=== PATIENT | female | born 1970 | race Caucasian/White ===

== ENCOUNTER 2022-05-21 19:54 | Inpatient (IN) ==
[2022-05-21] MEDS ORDERED: ONDANSETRON INJ 2 MG/ML 2 ML VIAL IV STA (20:05)
[2022-05-21] MEDS ORDERED: MoRPHine SULFATE 4 MG/ML 1 ML CARP\\VIAL IV STA (20:05)
--- NOTE | 2022-05-21 20:07 | Emergency Department Note ---
Impression & Plan Chest pain ADMIT ED Provider Note HPI: The patient is a 52-year-old female with history of coronary artery disease, paroxysmal atrial fibrillation, presents the emergency department with a chief complaint of chest pain. Patient states that shortly prior to arrival she developed a sensation of left arm pain, states that then radiated to the left part of her chest. Patient states that she was at rest when this occurred. She also had a sensation of palpitations that has now resolved. On arrival here to the ED the patient states her pain is improved but is still present, heart rate is within normal limits on arrival, patient is otherwise saturating well on room air and appears nontoxic on my initial evaluation ROS: - Per HPI *Outpatient medications and allergy history reviewed. *Pertinent external medical records reviewed. PE: General: Alert HEENT: Normocephalic, trachea midline Eyes: Extraocular eye movement is intact, no scleral erythema Pulmonary: Clear to auscultation bilaterally, no wheezing Cardio: Regular rate and rhythm GI: Abdomen is soft, nontender : No suprapubic tenderness MSK: No evidence of trauma or malformation of the extremities, no edema Skin: No evidence of rash Neuro: Alert, no focal deficits Psychiatric: Cooperative monitoring and evaluation advisor: - An order was placed for continuous cardiac monitoring - Patient was noted to be in sinus rhythm with a rate of 65 EKG: (As interpreted by myself): Rate: 65 Rhythm: Normal sinus rhythm Intervals: Within normal limits ST changes: No ST elevation Time: 2016 Interventions provided in ED: -IV morphine, IV Zofran, aspirin Medical Decision Making: Patient presented to the emergency department chest discomfort, states her discomfort is much improved from previous but she still does have some mild left-sided chest discomfort. EKG does not show any acute ischemic changes, t roponin is mildly elevated in the 60s, chest x-ray does not show any evidence of acute process. Patient's lab work is otherwise generally unremarkable. Patient was given aspirin as well as morphine and Zofran here in the ED for symptoms, on reassessment she states her pain is improved. Given her mildly elevated troponin in addition to history of coronary artery disease (catheterization 2 years ago at [facility] with obstructive disease that did not require stenting per patient) she will require admission for trending of troponin levels and likely cardiology evaluation in the morning. She is still an active smoker and was counseled on cessation. Patient is in agreement to the above plan, case was discussed with the on-call hospitalist, Dr. Cali, and the patient was placed for admission in stable condition for further care. Disposition discussion held by myself with: Patient Diagnosis: 1. Chest pain, acute 2. Elevated troponin 3. Tobacco use disorder Disposition: Admission Justin Jama DO Emergency Medicine Past Med/Surg History Medical History Allergic rhinitis Anxiety CAD (coronary artery disease) GERD (gastroesophageal reflux disease) Hyperlipidemia Intestinal adhesions Irritable bowel syndrome PAF (paroxysmal atrial fibrillation) Pre-diabetes Rheumatoid arthritis Vitamin D deficiency Surgical History History of ankle surgery History of appendectomy History of laparoscopy History of total abdominal hysterectomy Status post placement of implantable loop recorder (2020) Family History Mother Hx of CABG Cardiac disorder Diabetes Hypertension Myocardial infarction Peripheral vascular disease Father Emphysema of lung Brother Throat cancer Denies family history of Ovarian cancer Prostate cancer Breast cancer Colorectal cancer Social History Smoking Status: Current every day smoker Tobacco Type: Cigarettes Age Started Using Tobacco: 12; packs per day: 1; Second Hand Exposure: Yes; Hx Alcohol Use: No Hx Substance Use: No Preferred Language: Arabic Communication Ability: Effective Visual Impairment: No Limitations Hearing Ability: Normal Beliefs That Will Affect Care: None marital status: Current Living Situation Comment: lives with daughter and two kids current occupational status: employed 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 Feels Safe at Home: Yes Childhood Exposure to Second-Hand Smoke: No Diet Comment: patient has dentures caffeine: Yes (Soda x 3 per day.) during the past year weight has: increased > 10 lbs Dental Care, Regularly: No Physical Activity Frequency: Daily Seatbelt Use: always Sunscreen Use: No Allergies Allergies Allergy/AdvReac Type Severity Reaction Status Date / Time No Known Drug Allergies Allergy nkda Verified 05/21/22 21:58 Home Meds Home Medications Medication Instructions Recorded Confirmed oxycodone-acetaminophen 10 mg-325 1 tab PO Q6H PRN Pain #100 tabs 12/01/18 05/21/22 mg tablet apixaban 5 mg tablet (Eliquis) 5 mg PO BID 05/15/22 05/21/22 hydrochlorothiazide 25 mg tablet 25 mg PO DAILY 05/15/22 05/21/22 losartan 100 mg tablet 100 mg PO DAILY 05/15/22 05/21/22 melatonin 10 mg tablet 30 mg PO HS PRN Sleep 05/15/22 05/21/22 Previous Rx's Medication Instructions Recorded pantoprazole 40 mg tablet,delayed 40 mg PO DAILY #30 tabs 05/15/22 release (Protonix) atorvastatin 40 mg tablet 40 mg PO DAILY #30 tabs 05/16/22 ergocalciferol (vitamin D2) 1,250 1,250 mcg PO DAILY #12 caps 05/16/22 mcg (50,000 unit) capsule Results & Data (ED) Vital Signs Vital Signs - 24 hr 05/21/22 19:58 05/21/22 20:12 05/21/22 20:26 Temperature Source Oral Pulse Rate 73 Pulse Rate [Apical] Pulse Rhythm Regular Pulse Rhythm [Apical] Pulse Strength Normal Pulse Strength [Apical] Respiratory Rate 18 Respiratory Effort / Characteristics Non-Labored Respiratory Depth Normal Respiratory Pattern Regular Blood Pressure 167/78 H Blood Pressure [Right Arm] Blood Pressure Mean 107 Blood Pressure Mean [Right Arm] Blood Pressure Position Sitting Blood Pressure Position [Right Arm] Pulse Oximetry 96 99 97 Oxygen Delivery Method Room Air Room Air Room Air Sepsis Recent Fever Within 48 Hours No Sepsis New/Unexplained Change in Mental Status No Sepsis Action Taken by Nursing No Action Required 05/21/22 21:00 05/21/22 23:00 Temperature Source Pulse Rate Pulse Rate [Apical] 61 58 L Pulse Rhythm Pulse Rhythm [Apical] Regular Regular Pulse Strength Pulse Strength [Apical] Normal Normal Respiratory Rate 18 18 Respiratory Effort / Characteristics Non-Labored Non-Labored Respiratory Depth Normal Normal Respiratory Pattern Regular Regular Blood Pressure Blood Pressure [Right Arm] 108/58 L 118/61 Blood Pressure Mean Blood Pressure Mean [Right Arm] 74 80 Blood Pressure Position Blood Pressure Position [Right Arm] Lying Lying Pulse Oximetry 98 100 Oxygen Delivery Method Room Air Room Air Sepsis Recent Fever Within 48 Hours Sepsis New/Unexplained Change in Mental Status Sepsis Action Taken by Nursing Laboratory Data 05/21/22 20:12 05/21/22 20:12 Lab Results 05/21/22 05/21/22 05/21/22 Range/Units 20:12 20:12 20:12 WBC 9.29 (4.8-10.8) K/ul RBC 3.89 L (3.93-5.22) M/uL Hgb 11.5 L (12.0-16.0) g/dl Hct 33.7 L (34.1-44.9) % MCV 86.6 (80.0-100.0) fL MCH 29.6 (25.0-34.0) pg MCHC 34.1 (32.0-36.0) g/dL RDW Std Deviation 38.6 (36.4-46.3) fL RDW Coeff of Marco 12.1 (11.5-14.5) % Plt Count 367 (130-400) K/uL MPV 9.8 (9.4-12.3) fL Immature Gran % (Auto) 0.3 % Neut % (Auto) 61.8 % Lymph % (Auto) 32.7 % [place] % (Auto) 4.2 % Eos % (Auto) 0.4 % Baso % (Auto) 0.6 % Neut # (Auto) 5.73 (1.4-6.5) K/uL Lymph # (Auto) 3.04 (1.2-3.4) K/uL [place] # (Auto) 0.39 (0.24-0.82) K/uL Eos # (Auto) 0.04 (0-0.50) K/uL Baso # (Auto) 0.06 (0-0.2) K/uL Immature Gran # (Auto) 0.03 H (0.00-0.02) K/uL PT 11.1 (9.0-12.0) Seconds INR 1.0 (0.9-1.1) APTT 27.6 (21.0-31.0) Seconds PTT Ratio 1.0 D-Dimer 240 (0-500) ug/L FEU Sodium 135 L (136-145) mmol/L Potassium 3.8 (3.5-5.1) mmol/L Chloride 102 (98-107) mmol/L Carbon Dioxide 28 (21-32) mmol/L Anion Gap 5 (3-11) BUN 13 (6-23) mg/dl Creatinine 0.94 (0.6-1.2) mg/dl Est Cr Clr Drug Dosing 64.4 ml/min Est GFR ( Amer) 79.7 ml/min Est GFR (Non-Af Amer) 68.8 ml/min BUN/Creatinine Ratio 13.8 (10-20) Glucose 101 H (70-99(Fasting)) mg/dl Calcium 8.6 (8.5-10.1) mg/dl Total Bilirubin 0.3 (0.2-1.0) mg/dl AST 11 L (13-39) U/L ALT 5 L (7-52) U/L Alkaline Phosphatase 80 (34-104) U/L Troponin I High Sens 36.8 H (0-14) pg/ml Total Protein 6.7 (6.0-8.3) gm/dl Albumin 3.9 (3.4-5.0) gm/dl Globulin 2.8 (2.5-4.0) gm/dl Albumin/Globulin Ratio 1.4 (0.9-2) Lipase 19 (11-82) U/L SARS-CoV-2, RNA, NAAT (NEGATIVE) 05/21/22 05/21/22 Range/Units 20:14 22:10 WBC (4.8-10.8) K/ul RBC (3.93-5.22) M/uL Hgb (12.0-16.0) g/dl Hct (34.1-44.9) % MCV (80.0-100.0) fL MCH (25.0-34.0) pg MCHC (32.0-36.0) g/dL RDW Std Deviation (36.4-46.3) fL RDW Coeff of Marco (11.5-14.5) % Plt Count (130-400) K/uL MPV (9.4-12.3) fL Immature Gran % (Auto) % Neut % (Auto) % Lymph % (Auto) % [place] % (Auto) % Eos % (Auto) % Baso % (Auto) % Neut # (Auto) (1.4-6.5) K/uL Lymph # (Auto) (1.2-3.4) K/uL [place] # (Auto) (0.24-0.82) K/uL Eos # (Auto) (0-0.50) K/uL Baso # (Auto) (0-0.2) K/uL Immature Gran # (Auto) (0.00-0.02) K/uL PT (9.0-12.0) Seconds INR (0.9-1.1) APTT (21.0-31.0) Seconds PTT Ratio D-Dimer (0-500) ug/L FEU Sodium (136-145) mmol/L Potassium (3.5-5.1) mmol/L Chloride (98-107) mmol/L Carbon Dioxide (21-32) mmol/L Anion Gap (3-11) BUN (6-23) mg/dl Creatinine (0.6-1.2) mg/dl Est Cr Clr Drug Dosing ml/min Est GFR ( Amer) ml/min Est GFR (Non-Af Amer) ml/min BUN/Creatinine Ratio (10-20) Glucose (70-99(Fasting)) mg/dl Calcium (8.5-10.1) mg/dl Total Bilirubin (0.2-1.0) mg/dl AST (13-39) U/L ALT (7-52) U/L Alkaline Phosphatase (34-104) U/L Troponin I High Sens 168.7 H* D (0-14) pg/ml Total Protein (6.0-8.3) gm/dl Albumin (3.4-5.0) gm/dl Globulin (2.5-4.0) gm/dl Albumin/Globulin Ratio (0.9-2) Lipase (11-82) U/L SARS-CoV-2, RNA, NAAT NEGATIVE (NEGATIVE) Administered Medications Discontinued Medications Apixaban (Apixaban 5 Mg Tablet) 5 mg PO ONE STA Stop: 05/21/22 22:17 Last Admin: 05/21/22 22:39 Dose: 5 mg Documented By: LRS Aspirin (Aspirin Chew 324 Mg) 324 mg PO NOW STA Stop: 05/21/22 21:39 Last Admin: 05/21/22 21:43 Dose: 324 mg Documented By: LRS Morphine Sulfate (Morphine Sulfate 4 Mg/Ml 1 Ml Carp\Vial) 4 mg IV NOW STA Stop: 05/21/22 20:06 Last Admin: 05/21/22 20:18 Dose: 4 mg Documented By: LRS Ondansetron HCl (Ondansetron Inj 2 Mg/Ml 2 Ml Vial) 4 mg IV NOW STA Stop: 05/21/22 20:06 Last Admin: 05/21/22 20:18 Dose: 4 mg Documented By: TRISHS Pantoprazole Sodium (Pantoprazole 40 Mg Tab) 40 mg PO ONE STA Stop: 05/21/22 22:17 Last Admin: 05/21/22 22:39 Dose: 40 mg Documented By: MATT Imaging Data Radiologist's Impression: Chest X-Ray 05/21/22 20:05 SINGLE VIEW CHEST CLINICAL HISTORY: Atypical chest pain FINDINGS: An AP, portable, upright chest radiograph is compared to chest x-ray and chest CT dated 05/31/2021. The heart is mildly enlarged noting atherosclerotic calcification of the thoracic aorta. The pulmonary vasculature is noncongested. Mild emphysema and chronic interstitial thickening is similar to previous. The lungs and pleural spaces are clear. No pneumothorax is seen. The bony thorax is grossly intact. IMPRESSION: Cardiomegaly an mild emphysema with no acute cardiopulmonary abnormality identified. ACT 112: Negative or not required by law. Electronically signed by: Ayo Cruz M.D. 05/21/2022 8:34 PM Discharge Plan Visit Data Chief Complaint: Chest Pain Stated Complaint: rt. ARM AND CHEST PAIN (RESOLVED) ED Provider: Justin Jama Discharge Problem: Chest pain Patient Disposition: Admitted As Inpatient Forms Stand Alone Forms: [facility] Prescriptions Prescriptions: No Action atorvastatin 40 mg tablet 40 mg PO DAILY Qty: 30 2RF ergocalciferol (vitamin D2) 1,250 mcg (50,000 unit) capsule 1,250 mcg PO DAILY Qty: 12 0RF hydrochlorothiazide 25 mg tablet 25 mg PO DAILY Eliquis 5 mg tablet 5 mg PO BID losartan 100 mg tablet 100 mg PO DAILY melatonin 10 mg tablet 30 mg PO HS PRN (Reason: Sleep) pantoprazole [Protonix] 40 mg tablet,delayed release (DR/EC) 40 mg PO DAILY Qty: 30 2RF oxycodone-acetaminophen 10-325 mg tablet 1 tab PO Q6H PRN (Reason: Pain) Qty: 100 Referrals Referrals: Priscilla Obregon DO [Primary Care Provider] -
[2022-05-21 20:23] LABS: Basophils # (auto) 0.06 K/uL (0-0.2); Basophils % (auto) 0.6 %; Eosinophils # (auto) 0.04 K/uL (0-0.50); Eosinophils % (auto) 0.4 %; Hematocrit (blood only) 33.7 % (34.1-44.9); Hemoglobin 11.5 g/dl (12.0-16.0); Immature Granulocytes # (auto) 0.03 K/uL (0.00-0.02); Immature Granulocytes % (auto) 0.3 %; Lymphocytes # (auto) 3.04 K/uL (1.2-3.4); Lymphocytes % (auto) 32.7 %; Mean Corpuscular Hemoglobin 29.6 pg (25.0-34.0); Mean Corpuscular Hgb Conc 34.1 g/dL (32.0-36.0); Mean Corpuscular Volume 86.6 fL (80.0-100.0); Mean Platelet Volume 9.8 fL (9.4-12.3); Monocytes # (auto) 0.39 K/uL (0.24-0.82); Monocytes % (auto) 4.2 %; Neutrophils # (auto) 5.73 K/uL (1.4-6.5); Neutrophils % (auto) 61.8 %; Platelet Count 367 K/uL (130-400); RDW Coefficient of Variation 12.1 % (11.5-14.5); RDW Standard Deviation 38.6 fL (36.4-46.3); Red Blood Count 3.89 M/uL (3.93-5.22); White Blood Count 9.29 K/ul (4.8-10.8)
--- NOTE | 2022-05-21 20:36 | XRay Report ---
SINGLE VIEW CHEST CLINICAL HISTORY: Atypical chest pain FINDINGS: An AP, portable, upright chest radiograph is compared to chest x-ray and chest CT dated 05/13. The heart is mildly enlarged noting atherosclerotic calcification of the thoracic aorta. The pulmonary vasculature is noncongested. Mild emphysema and chronic interstitial thickening is similar to previous. The lungs and pleural spaces are clear. No pneumothorax is seen. The bony thorax is tu sly intact. IMPRESSION: Cardiomegaly an mild emphysema with no acute cardiopulmonary abnormality identified. ACT 112: Negative or not required by law. Electronically signed by: Ayo Cruz M.D. 05/21/2022 8:34 PM
[2022-05-21 20:41] LABS: D Dimer 240 ug/L FEU (0-500); Partial Thromboplastin Time 27.6 Seconds (21.0-31.0); Prothrombin Time 11.1 Seconds (9.0-12.0)
[2022-05-21 20:46] LABS: Albumin Globulin Ratio 1.4 (0.9-2); Albumin Level 3.9 gm/dl (3.4-5.0); BUN Creatinine Ratio 13.8 (10-20); Bilirubin,Total 0.3 mg/dl (0.2-1.0); Calcium 8.6 mg/dl (8.5-10.1); Creatinine Clr Calc Pharmacy 64.4 ml/min; Est GFR (African American) 79.7 ml/min; Est GFR (Non-African American) 68.8 ml/min; Globulin 2.8 gm/dl (2.5-4.0); Potassium 3.8 mmol/L (3.5-5.1); Total Protein 6.7 gm/dl (6.0-8.3)
[2022-05-21 20:51] LABS: Troponin I High Sensitivity 36.8 pg/ml (0-14)
[2022-05-21] MEDS ORDERED: ASPIRIN CHEW 324 MG PO STA (21:38)
--- NOTE | 2022-05-21 22:12 | History & Physical Report ---
Date of Service May 21, 2022 Assessment & Plan (1) NSTEMI (non-ST elevated myocardial infarction): Plan: 52yo female with a history of paroxysmal AF, HLD, CAD, RA, GERD, and FREDIS presents with a four-hour history of palpitations, central chest pain, left arm pain, and nausea. Chest pain, palpitations, nausea suspect secondary to NSTEMI Patient with a few-hour history of palpitations and CP in the setting of HLD and CAD Initial vitals notable for elevated BP but otherwise stable Labs notable for mildly-elevated hsTroponin and mild anemia Received ASA 324mg EKG: sinus rhythm with PACs, no overt ischemic change Repeat hsTroponin came back higher (36.8 --> 168.7); will monitor q2h until peak&fall Unfortunately, patient received her evening eliquis right before the hsTroponin resulted Discussed with pharmacy re: when to start heparin after recieving eliquis Per pharmacy, can start heparin gtt twelve hours after last eliquis dose (which was on 05/21 at 22:39) Will hold off on ordering timed heparin gtt and will defer decision to day team and cardiology Cardiology consult placed Nitro sublingual ordered Pain control: APAP 1000mg q8h prn mild pain Morphine 1mg q2h prn severe pain pAF Patient not in AF upon arrival; EKG: sinus rhythm with PACs, no overt ischemic change Continue home eliquis HTN: continue home losartan, HCTZ HLD, CAD: continue home statin GERD: continue home pantoprazole FEN: heart healthy diet, NPO at midnight pending possible catheterization Code status: full code DVT ppx: home eliquis Consults: cardiology Dispo: med/telemetry (2) PAF (paroxysmal atrial fibrillation): (3) Hyperlipidemia: (4) CAD (coronary artery disease): (5) GERD (gastroesophageal reflux disease): History of Present Illness Primary Care Provider: Priscilla Obregon DO 52yo female with a history of paroxysmal AF, HLD, CAD, RA, GERD, and FREDIS presents with a four-hour history of palpitations, central chest pain, left arm pain, and nausea. Symptoms started suddenly. Palpitations resolved prior to arrival to the ED; patients pain persists but has improved. Patient denies fever, chills, vision changes, SOB, edema, vomiting, dysuria, hematochezia, melena, numbness, tingling, weakness, or other symptoms. Denies recent illness and recent travel. Upon arrival, vitals were notable for elevated BP (160s/70s); no tachycardia, no tachypnea, patient afebrile, spO2 adequate on room air. Initial labs were notable for mild anemia (11.5) and mildly-elevated hsTroponin (36.8); no leukocytosis, platelets wnl, no electrolyte abnormalities, creatinine not elevated, LFTs wnl, Tbili not elevated, covid PCR negative. In the ED, patient received ASA 324mg, morphine, and zofran. EKG: sinus rhythm with PACs, no overt ischemic change CXR: cardiomegaly and mild emphysema with no acute cardiopulmonary abnormality identified Surrogate decision-maker in case of an emergency: herbie Guerrero (cell: [phone]) Allergies Allergy/AdvReac Type Severity Reaction Status Date / Time No Known Drug Allergies Allergy nkda Verified 05/21/22 21:58 Home Medications Medication Instructions Recorded Confirmed Type oxycodone-acetaminophen 10 mg-325 1 tab PO Q6H PRN Pain #100 tabs 12/01/18 05/21/22 History mg tablet apixaban 5 mg tablet (Eliquis) 5 mg PO BID 05/15/22 05/21/22 History hydrochlorothiazide 25 mg tablet 25 mg PO DAILY 05/15/22 05/21/22 History losartan 100 mg tablet 100 mg PO DAILY 05/15/22 05/21/22 History melatonin 10 mg tablet 30 mg PO HS PRN Sleep 05/15/22 05/21/22 History pantoprazole 40 mg tablet,delayed 40 mg PO DAILY #30 tabs 05/15/22 05/21/22 Rx release (Protonix) atorvastatin 40 mg tablet 40 mg PO DAILY #30 tabs 05/16/22 05/21/22 Rx ergocalciferol (vitamin D2) 1,250 1,250 mcg PO DAILY #12 caps 05/16/22 05/21/22 Rx mcg (50,000 unit) capsule Past Med/Surg History Medical History Allergic rhinitis Anxiety CAD (coronary artery disease) GERD (gastroesophageal reflux disease) Hyperlipidemia Intestinal adhesions SURGICAL LYSIS OF INTESTINAL ADHESIONS Irritable bowel syndrome PAF (paroxysmal atrial fibrillation) Pre-diabetes Rheumatoid arthritis Vitamin D deficiency Surgical History History of ankle surgery History of appendectomy History of laparoscopy History of total abdominal hysterectomy WITH REMOVAL OF BOTH OVARIES d/t cervical cancer Status post placement of implantable loop recorder (2020) Family History Mother Hx of CABG Cardiac disorder Diabetes Hypertension Myocardial infarction Peripheral vascular disease Father Emphysema of lung Brother Throat cancer Denies family history of Ovarian cancer Prostate cancer Breast cancer Colorectal cancer Social History Smoking Status: Former smoker Tobacco Type: Cigarettes Age Started Using Tobacco: 12; packs per day: 1; Cigarettes Per Day: pack and quarter per day; Second Hand Exposure: No; Do You Dip or Chew Tobacco: No; Tobacco Cessation Education Requested by Patient: No Hx Alcohol Use: No Hx Substance Use: No Preferred Language: Azeri Communication Ability: Effective Visual Impairment: No Limitations Hearing Ability: Normal Manager Alliance Required: No Beliefs That Will Affect Care: None marital status: Current Living Situation: Alone Current Living Situation Comment: lives with daughter and two kids current occupational status: employed 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 Feels Safe at Home: Yes Safety Concerns: Feels Safe At This Time Childhood Exposure to Second-Hand Smoke: No Diet Comment: patient has dentures caffeine: Yes (Soda x 3 per day.) during the past year weight has: increased > 10 lbs Dental Care, Regularly: No Physical Activity Frequency: Daily Seatbelt Use: always Sunscreen Use: No Assistive Devices: None Physical Exam Physical Exam: Constitutional: well-appearing, no acute distress CV: regular rhythm, no murmur appreciated, extremities well-perfused, no LE edema Resp: CTABL, no wheezes/rales/rhonchi appreciated, no increased work of breathing GI: soft, nondistended, nontender, BS normoactive MSK: no gross deformities appreciated Skin: warm, dry, no rash appreciated Neuro: alert, oriented, no focal neurologic deficit appreciated Results & Data Results & Data ([facility]) Vital Signs (Past 12 Hours) Vital Signs Pulse Pulse Resp BP BP Pulse Ox O2 Del Method 05/21/22 21:00 61 18 108/58 L 98 Room Air 05/21/22 20:26 97 Room Air 05/21/22 20:12 99 Room Air 05/21/22 19:58 73 18 167/78 H 96 Room Air Supervising Physician Co-Signing Physician Notes Patient seen and examined, chart reviewed, case discussed with Dr. Moran at the time of admission and I agree with the assessment and plan as above. In brief, patient is a 52yo female with history of HLP, PAF, CAD presenting with acute episode of left sided chest and arm pain. Some minor TWI, troponin elevated on arrival 36.8 -->168.7 On exam patient is resting comfortably, NAD Skin - warm, dry, intact, no rashes/lesios HEENT - NC/AT, PERRL, MMM, neck supple Heart - +S1/S2, regular, no m/r/g, no reproducible chest wall pain Lungs - CTA Abd - soft, NT/ND Ext - warm, well perfused, no clubbing/cyanosis or edema Labs and images reviewed Assessment/Plan -Admit to medical with telemetry -Trend troponin - if uptrending would initiate heparin gtt. 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
[2022-05-21] MEDS ORDERED: APIXABAN 5 MG TABLET PO STA (22:16)
[2022-05-21] MEDS ORDERED: PANTOprazole 40 MG TAB PO STA (22:16)
[2022-05-21] MEDS ORDERED: ACETAMINOPHEN 500 MG TAB PO PRN (22:54)
[2022-05-21] MEDS ORDERED: NITROGLYCERIN SL 0.4 MG/TAB TAB SL PRN (22:54)
[2022-05-21] MEDS: MoRPHine SULFATE 2 MG/ML CARP IV PRN (23:33)
[2022-05-22] MEDS: MELATONIN 3 MG TAB PO PRN (01:55)
[2022-05-22] MEDS: MoRPHine SULFATE 2 MG/ML CARP IV PRN ×4 (01:59→10:30)
[2022-05-22] MEDS ORDERED: ONDANSETRON INJ 2 MG/ML 2 ML VIAL IV PRN (02:46)
[2022-05-22 07:18] LABS: Hematocrit (blood only) 32.3 % (34.1-44.9); Mean Corpuscular Hemoglobin 29.2 pg (25.0-34.0); Mean Corpuscular Hgb Conc 34.1 g/dL (32.0-36.0); Mean Corpuscular Volume 85.7 fL (80.0-100.0); Platelet Count 333 K/uL (130-400); RDW Coefficient of Variation 12.3 % (11.5-14.5); RDW Standard Deviation 38.3 fL (36.4-46.3); Red Blood Count 3.77 M/uL (3.93-5.22); White Blood Count 7.76 K/ul (4.8-10.8)
[2022-05-22 07:46] LABS: BUN Creatinine Ratio 13.3 (10-20); Calcium 8.6 mg/dl (8.5-10.1); Est GFR (African American) 92.7 ml/min; Est GFR (Non-African American) 79.9 ml/min; Magnesium 1.4 mg/dl (1.7-2.4); Phosphorus 3.8 mg/dl (2.5-4.9); Potassium 3.7 mmol/L (3.5-5.1)
[2022-05-22] MEDS ORDERED: Heparin IV Adult Wt-Based Standard *NO* Bolus Protocol IV SCH (08:26)
[2022-05-22] MEDS ORDERED: APIXABAN 5 MG TABLET PO SCH (09:00)
[2022-05-22] MEDS: HEPARIN SODIUM/DEXTROSE 25,000 UNITS/500 ML BAG IV SCH (10:38)
--- NOTE | 2022-05-22 10:56 | XCELERA ---
[id number] \\[email or web address]\[id number]
--- NOTE | 2022-05-22 11:11 | Electrocardiogram Report ---
Test Reason : Blood Pressure : / mmHG Vent. Rate : 065 BPM Atrial Rate : 065 BPM P-R Int : 124 ms QRS Dur : 084 ms QT Int : 418 ms P-R-T Axes : 054 055 070 degrees QTc Int : 434 ms Poor data quality, interpretation may be adversely affected Sinus rhythm with Premature atrial complexes Nonspecific T wave abnormality Abnormal ECG When compared with ECG of 31-MAY-2021 10:19, No significant change Confirmed by Vignesh Wen ([id number]) on 05/22/2022 11:10:59 AM Referred By: REFERRED SELF Confirmed By:Vignesh Wen
[2022-05-22] MEDS: ATORVASTATIN 40 MG TAB PO SCH (11:19)
[2022-05-22] MEDS: LOSARTAN POTASSIUM 50 MG TAB PO SCH (11:19)
[2022-05-22] MEDS: PANTOprazole 40 MG TAB PO SCH (11:20)
[2022-05-22] MEDS: hydroCHLOROthiazide 25 MG TAB PO SCH (11:20)
[2022-05-22] MEDS: MAGNESIUM SULFATE / D5W 1 GM/100 ML BAG IV SCH ×2 (11:20→13:23)
[2022-05-22] MEDS: SODIUM CHLORIDE 0.9% 1000ML 1,000 ML IV SCH ×2 (11:21→20:27)
[2022-05-22] MEDS: ASPIRIN 81 MG ECTAB PO SCH (11:29)
[2022-05-22] MEDS ORDERED: oxyCODONE HCL IR 5 MG TAB (IMMEDIATE RELEASE) PO STA (13:00)
--- NOTE | 2022-05-22 14:02 | Hospitalist Progress Note ---
Date of Service May 22, 2022 Assessment & Plan (1) NSTEMI (non-ST elevated myocardial infarction): Plan: Asymptomatic at the time of my rounds this morning. She is on a heparin drip along with other cardiac medications. Cardiology consultation pending. Anticipate left heart catheterization tomorrow, May 23. Bobbiquis is now on hold (2) Hypomagnesemia: Plan: Parenteral replacement. Serial labs (3) PAF (paroxysmal atrial fibrillation): Plan: Currently in normal sinus rhythm. Telemetry. Radha is on hold. She is on a heparin drip (4) Hyperlipidemia: Plan: Statin therapy (5) GERD (gastroesophageal reflux disease): Plan: PPI therapy (6) CAD (coronary artery disease): Plan: Known coronary artery disease. Continue guideline directed medical management Plan Anticipate eventual discharge to home later this week Admission and Anticipated Discharge Date Admission Date: May 22, 2022 Subjective Alert and oriented. No current chest pain. She states that she takes oxycodone 3 times a day and appears to be opioid dependent. This has been restarted. Parenteral magnesium replacement ordered. She is now on a heparin drip which re places Bobbiquis. EKG reveals anterior T wave inversion. Cardiac echo fortunately reveals no regional wall motion abnormalities. Cardiology consultation requested. Anticipate cardiac catheterization tomorrowMay 23 Review of Systems Review of Systems: Constitutional-no fever or chills ENT-no blurred vision, no double vision, no epistaxis, no sore throat Respiratory-no cough, no wheezing, no shortness of breath Cardiac-no current chest pain. Denies palpitations. No syncope. GI-no nausea, vomiting, diarrhea, melena, hematochezia -no urinary retention, no urinary incontinence, no dysuria, no hematuria Musculoskeletal-no joint pain, no muscle tenderness Skin-no bruising, no rashes, no pruritus Neuro-no isolated weakness, no paresthesia, no weakness Psych-no depression, no anxiety Physical Exam Physical Exam: General-alert and oriented x3, no fevers, no chills HEENT-head atraumatic and normocephalic, pupils equal and reactive to light, extraocular muscles intact Neck-no lymphadenopathy or thyromegaly, trachea midline Chest-clear to auscultation percussion. No rales wheezing or rhonchi Cardiac-regular rate and rhythm, normal S1 and S2 Abdomen-normal bowel sounds, nontender, no hepatosplenomegaly Extremities-no cyanosis, clubbing, or edema Neuro-cranial nerves II through XII intact, motor and sensory function within normal limits, strength symmetrical , no focal deficits Psych-normal affect, normal mood Results & Data Results & Data ([facility]) Vital Signs (Past 12 Hours) Vital Signs Temp Pulse Pulse Pulse Resp BP Pulse Ox 05/22/22 12:00 36.7 C 50 L 18 95/59 L 100 05/22/22 10:00 37.0 C 77 18 153/90 H 95 05/22/22 08:00 36.6 C 51 L 18 91/52 L 100 05/22/22 07:53 49 L 05/22/22 04:04 36.6 C 56 L 20 113/71 93 05/22/22 05:09 50 L 05/22/22 04:46 05/22/22 03:00 43 L 16 103/44 L 100 05/22/22 02:54 51 L 16 102/69 95 O2 Del Method O2 Flow Rate 05/22/22 12:00 Room Air 05/22/22 10:00 Nasal Cannula 2 05/22/22 08:00 Room Air 05/22/22 07:53 05/22/22 04:04 Room Air 05/22/22 05:09 05/22/22 04:46 Room Air 05/22/22 03:00 Room Air 05/22/22 02:54 Room Air Laboratory Results 05/22/22 06:29 05/22/22 06:29 PG Care Time/CCT Total # of Minutes Spent Total Time Spent with Patient: Total time spent is greater than 50% in coordination of care (as documented) at patient's floor/unit and/or counseling patient: Coding Level of Care Code 95884 SUB INP/OBS CARE 3/50MIN Diagnoses NSTEMI (non-ST elevated myocardial infarction) I21.4 Hypomagnesemia E83.42 PAF (paroxysmal atrial fibrillation) I48.0 Hyperlipidemia E78.5 GERD (gastroesophageal reflux disease) K21.9 CAD (coronary artery disease) I25.10
--- NOTE | 2022-05-22 14:44 | Cardiology Consultation ---
Date of Consultation May 22, 2022 Assessment & Plan (1) NSTEMI (non-ST elevated myocardial infarction): Relatively recent cath without occlusive coronary disease. Most likely this does not represent an acute coronary syndrome. More likely this represents type II non-ST elevation [place] secondary to what sounds to have been tachycardia. However, definitive evaluation by coronary angiography is recommended since we do not know the degree of her "nonocclusive coronary disease". Her echocardiogram was reassuring and that it did not demonstrate any significant wall motion abnormalities. The Eliquis has been held. She has been started on a heparin drip. She will undergo coronary angiography tomorrow plus or minus PCI as indicated. She should remain on low-dose aspirin, low-dose beta-william, high intensity statin therapy, and angiotensin receptor william. We will make additional recommendations pending results of her catheterization tomorrow. (2) Hyperlipidemia: If in fact the patient does have coronary disease then she would be considered high risk. High intensity statin therapy would be continued. Target LDL reduction under the current guidelines would be greater than or equal to 50% of untreated baseline LDL. (3) PAF (paroxysmal atrial fibrillation): May have had recurrence yesterday but currently in sinus rhythm. If she does not fact have sick sinus syndrome (tachycardia/bradycardia syndrome) then we will need to determine the severity/frequency of her atrial fibrillation as well as frequency of her bradycardia events. She does have an implantable loop recorder which was placed in 01/02/2021. It is a [employer] device and we should interrogate this. I asked her to think about possible increasing of beta- william with implantable pacemaker to prevent bradycardia episodes. Regardless, she will remain on anticoagulation with Eliquis. Based on her reported history her [id number] score is 3 points. This gives her an annual CVA risk of 3.2% and a 4.6% combined risk of systemic embolization/TIA/stroke. Has bled score is 2 if you include Eliquis. Therefore, anticoagulation is favored. (4) Benign essential hypertension: HCTZ and losartan have been utilized. Blood pressure is adequately controlled at this time. Plan Cath tomorrow. Interrogate loop recorder as soon as possible. Holding Eliquis in favor of heparin for the moment. Further recommendations pending results. History of Present Illness Reason for Consultation: Chest discomfort, elevated troponin Attending Physician: Surinder Fox MD History of Present Illness 52-year-old female with a history of cardiac disease including paroxysmal atrial fibrillation, intermittent pauses of over 3 seconds which were symptomatic, and abnormal stress test. She previously had cardiac catheterization performed by Dr. Andrey Pulido for the abnormal stress test sometime after July 13, 2019. Unfortunately, I do not have that report. Its been nearly 3 years since the procedure was performed. Patient tells me at that time "I did not have anything that was bad". No stenting was performed. Patient also saw Dr. 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 A loop recorder was implanted and demonstrated paroxysmal atrial fibrillation in addition to symptomatic pauses of over [address] Hale's note suggest that she had sick sinus syndrome. They contemplated pacemaker implantation versus reduction in her beta-william. It seems that they chose to discontinue her beta-william. Patient reports onset of chest discomfort, radiated to the left arm, palpitations, squeezing, and shortness of breath. She feels that this was different than her prior palpitations. Symptoms lasted around 4 hours. She came to the emergency department where she was found to be without ischemic EKG changes and normal oxygen saturation. Her chest pain had significantly improved and she no longer had palpitations. Her troponin was slightly elevated and she was therefore admitted for further work-up and management. Unfortunately, the patient received Eliquis dose last night. She was not placed on heparin drip. She did receive nitroglycerin and morphine in the emergency department. Currently, patient states she has no further chest discomfort, palpitations, or shortness of breath. She denies exertionally related symptoms preceding this admission. Based on her recollection of her cardiac catheterization she had mild nonocclusive coronary disease. She has not had any stress testing since prior to that catheterization. She denies any syncope, near syncope, orthopnea, PND, racing heartbeat, and only complains of occasional ankle edema. She continues to smoke. She she is on pain medications. She voices no other complaints or concerns at this time. Allergies Allergy/AdvReac Type Severity Reaction Status Date / Time No Known Drug Allergies Allergy nkda Verified 05/21/22 21:58 Home Medications Medication Instructions Recorded Confirmed Type oxycodone-acetaminophen 10 mg-325 1 tab PO Q6H PRN Pain #100 tabs 12/01/18 05/21/22 History mg tablet apixaban 5 mg tablet (Eliquis) 5 mg PO BID 05/15/22 05/21/22 History hydrochlorothiazide 25 mg tablet 25 mg PO DAILY 05/15/22 05/21/22 History losartan 100 mg tablet 100 mg PO DAILY 05/15/22 05/21/22 History melatonin 10 mg tablet 30 mg PO HS PRN Sleep 05/15/22 05/21/22 History pantoprazole 40 mg tablet,delayed 40 mg PO DAILY #30 tabs 05/15/22 05/21/22 Rx release (Protonix) atorvastatin 40 mg tablet 40 mg PO DAILY #30 tabs 05/16/22 05/21/22 Rx ergocalciferol (vitamin D2) 1,250 1,250 mcg PO DAILY #12 caps 05/16/22 05/21/22 Rx mcg (50,000 unit) capsule Patient History Medical History Allergic rhinitis Anxiety CAD (coronary artery disease) GERD (gastroesophageal reflux disease) Hyperlipidemia Intestinal adhesions SURGICAL LYSIS OF INTESTINAL ADHESIONS Irritable bowel syndrome PAF (paroxysmal atrial fibrillation) Pre-diabetes Rheumatoid arthritis Vitamin D deficiency Surgical History History of ankle surgery History of appendectomy History of laparoscopy History of total abdominal hysterectomy WITH REMOVAL OF BOTH OVARIES d/t cervical cancer Status post placement of implantable loop recorder (2020) Family History Mother Hx of CABG Cardiac disorder Diabetes Hypertension Myocardial infarction Peripheral vascular disease Father Emphysema of lung Brother Throat cancer Denies family history of Ovarian cancer Prostate cancer Breast cancer Colorectal cancer Social History Smoking Status: Former smoker Tobacco Type: Cigarettes Age Started Using Tobacco: 12; packs per day: 1; Cigarettes Per Day: pack and quarter per day; Second Hand Exposure: No; Do You Dip or Chew Tobacco: No; Tobacco Cessation Education Requested by Patient: No Hx Alcohol Use: No Hx Substance Use: No Preferred Language: Bolivian Communication Ability: Effective Visual Impairment: No Limitations Hearing Ability: Normal 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: No Beliefs That Will Affect Care: None marital status: Current Living Situation: Alone Current Living Situation Comment: lives with daughter and two kids current occupational status: employed 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 Sclera are anicteric. ENMT: Oral mucosa is pink moist and intact. Neck: No JVD Respiratory: Clear to auscultation bilaterally. No wheezing, rhonchi, or rales. Cardiovascular: Regular rate and rhythm. No gallops, rubs, or murmurs. No edema. Gastrointestinal (Abdomen): Nontender. Normal active bowel sounds. Musculoskeletal: no cyanosis or clubbing, extremities motor strength 5/5 (2+ distal pulses) Neurologic: Cognition is intact. Speech is fluent. No focal deficits. No tremor. Psychiatric: A+Ox3, euthymic affect Results & Data ([facility]) Vital Signs (Past 12 Hours) Vital Signs Temp Pulse Pulse Pulse Resp BP Pulse Ox 05/22/22 12:00 36.7 C 50 L 18 95/59 L 100 05/22/22 10:00 37.0 C 77 18 153/90 H 95 05/22/22 08:00 36.6 C 51 L 18 91/52 L 100 05/22/22 07:53 49 L 05/22/22 04:04 36.6 C 56 L 20 113/71 93 05/22/22 05:09 50 L 05/22/22 04:46 05/22/22 03:00 43 L 16 103/44 L 100 05/22/22 02:54 51 L 16 102/69 95 O2 Del Method O2 Flow Rate 05/22/22 12:00 Room Air 05/22/22 10:00 Nasal Cannula 2 05/22/22 08:00 Room Air 05/22/22 07:53 05/22/22 04:04 Room Air 05/22/22 05:09 05/22/22 04:46 Room Air 05/22/22 03:00 Room Air 05/22/22 02:54 Room Air PG Care Time/CCT Total # of Minutes Spent Total Time Spent with Patient: Total time spent is greater than 50% in coordination of care (as documented) at patient's floor/unit and/or counseling patient: Coding Level of Care Code New Pt INP/OBS CONSULT LVL 5, 80 MIN Patient Type New Diagnoses NSTEMI (non-ST elevated myocardial infarction) I21.4 Hyperlipidemia E78.5 PAF (paroxysmal atrial fibrillation) I48.0 Benign essential hypertension I10
--- NOTE | 2022-05-22 15:47 | Electrocardiogram Report ---
Test Reason : Blood Pressure : / mmHG Vent. Rate : 057 BPM Atrial Rate : 057 BPM P-R Int : 126 ms QRS Dur : 090 ms QT Int : 436 ms P-R-T Axes : 067 051 069 degrees QTc Int : 424 ms Sinus bradycardia T wave abnormality, consider anterior ischemia Abnormal ECG When compared with ECG of 21-MAY-2022 20:17, Premature atrial complexes are no longer Present T wave inversion more evident in Anterior leads Confirmed by Vignesh Wen ([id number]) on 05/22/2022 3:47:13 PM Referred By: REFERRED SELF Confirmed By:Vignesh Wen
[2022-05-22 17:04] LABS: Partial Thromboplastin Ratio 1.6
[2022-05-22] MEDS: oxyCODONE HCL IR 5 MG TAB (IMMEDIATE RELEASE) PO SCH ×2 (18:15→20:25)
--- NOTE | 2022-05-22 20:47 | Billing Data ---
Date of Service May 22, 2022 Coding Level of Care Code 36872 INT INP/OBS CARE
[2022-05-22] MEDS: LORazepam 2 MG/1 ML VIAL IV STA ×2 (22:12→22:21)
[2022-05-22 23:51] LABS: Partial Thromboplastin Ratio 1.6; Partial Thromboplastin Time 44.4 Seconds (21.0-31.0)
[2022-05-23] MEDS: SODIUM CHLORIDE 0.9% 1000ML 1,000 ML IV SCH ×2 (06:16→14:54)
[2022-05-23 06:54] LABS: Basophils # (auto) 0.05 K/uL (0-0.2); Basophils % (auto) 0.6 %; Eosinophils # (auto) 0.09 K/uL (0-0.50); Hematocrit (blood only) 33.5 % (34.1-44.9); Hemoglobin 11.3 g/dl (12.0-16.0); Immature Granulocytes # (auto) 0.03 K/uL (0.00-0.02); Immature Granulocytes % (auto) 0.3 %; Lymphocytes # (auto) 3.84 K/uL (1.2-3.4); Lymphocytes % (auto) 43.6 %; Mean Corpuscular Hgb Conc 33.7 g/dL (32.0-36.0); Mean Corpuscular Volume 86.1 fL (80.0-100.0); Monocytes # (auto) 0.47 K/uL (0.24-0.82); Monocytes % (auto) 5.3 %; Neutrophils # (auto) 4.32 K/uL (1.4-6.5); Neutrophils % (auto) 49.2 %; Platelet Count 338 K/uL (130-400); RDW Coefficient of Variation 12.4 % (11.5-14.5); RDW Standard Deviation 38.8 fL (36.4-46.3); Red Blood Count 3.89 M/uL (3.93-5.22)
[2022-05-23 07:31] LABS: Partial Thromboplastin Ratio 1.5; Partial Thromboplastin Time 39.9 Seconds (21.0-31.0)
[2022-05-23] MEDS: oxyCODONE HCL IR 5 MG TAB (IMMEDIATE RELEASE) PO SCH ×3 (07:57→21:16)
[2022-05-23] MEDS: hydroCHLOROthiazide 25 MG TAB PO SCH (07:58)
[2022-05-23] MEDS: ASPIRIN 81 MG ECTAB PO SCH (07:58)
[2022-05-23] MEDS: PANTOprazole 40 MG TAB PO SCH (07:58)
[2022-05-23] MEDS: ATORVASTATIN 40 MG TAB PO SCH (07:58)
[2022-05-23] MEDS: LOSARTAN POTASSIUM 50 MG TAB PO SCH (07:58)
--- NOTE | 2022-05-23 08:46 | Hospitalist Progress Note ---
Date of Service May 23, 2022 Assessment & Plan (1) NSTEMI (non-ST elevated myocardial infarction): Plan: Cardiology felt was likely type II non-ST elevation [place] secondary to possible tachycardia. The Eliquis was held and patient started on a heparin drip. Patient had heart cath today that was normal epicardial coronary arteries and normal LV function with only mild mitral regurg Cardiology recommended that patient should remain on low-dose aspirin, low-dose beta-william, high intensity statin therapy, and angiotensin receptor william and stated further recommendations to follow after cardiac cath. Heparin stopped and Eliquis to restart tonight. (2) Hyperlipidemia: Plan: Continue Lipitor 40mg (3) PAF (paroxysmal atrial fibrillation): Plan: Patient has an implantable loop recorder (placed 01/02/21) Cardiology planning on interrogation of this device. Awaiting [facility] [employer] rep (4) Benign essential hypertension: Plan: HCTZ and losartan have been utilized. Blood pressure is adequately controlled at this time - 108/72 (5) GERD (gastroesophageal reflux disease): Plan: Continue PPI therapy (6) Hypomagnesemia: Plan: Parenteral replacement.Normal now at 1.7 (7) Constipation: Plan: Added Colace one BID Discussed increasing po water intake and fiber supplement Discussed due to have a follow up colonoscopy (constipation and occasional LUQ abdominal pain - no pain currently) Patient to follow up with GI as outpatient Admission and Anticipated Discharge Date Admission Date: May 22, 2022 Subjective Patient is awake in bed seen after having cardiac cath. She denies any chest pain, SOB, cough or pain. She asks for something for her constipation. She states she sometimes takes colace at home. She tells me that she sometimes has LUQ abdominal pain and will feel a lump that is painful and then goes away. She denies any pain or lumps currently. Review of Systems Constitutional: no fever, no chills and no sweats Ear, Nose, Mouth, Throat: no dizziness, no nasal discharge and no post nasal drip Respiratory: no cough, no chest congestion, no dyspnea and no dyspnea on exertion Cardiovascular: no chest pain, no dyspnea, no edema and no calf pain Gastrointestinal: + abdominal pain and + constipation; no early satiety, no nausea, no diarrhea/loose stools and no blood in stools Genitourinary: no dysuria, no urinary hesitancy and no hematuria Integumentary: no rash, no lesions and no new lesions Neurologic: no falls, no tingling, no paresthesia and no headache(s) Endocrine: no polydipsia, no polyphagia and no polyuria Hematologic / Lymphatic: no easy bleeding, no easy bruising and no night sweats Allergy / Immunological: no cough, no dyspnea and no rash + sneezing Physical Exam Constitutional: WD/WN, vitals as above ENMT: external ear and nose normal, oropharynx normal Neck: trachea midline, no thyromegaly Respiratory: normal respiratory effort, lungs clear to auscultation Cardiovascular: RRR, no murmur, no edema Gastrointestinal (Abdomen): normal bowel sounds, soft, nontender, no hepatosplenomegaly Abdomen is soft and nontender she does have some mild pain with tensing the abdominal muscle wall, no obvious hernia palpated. +Carnett's sign Psychiatric: A+Ox3, euthymic affect Results & Data Results & Data ([facility]) Vital Signs (Past 12 Hours) Vital Signs Temp Pulse Pulse Resp BP Pulse Ox O2 Del Method 05/23/22 07:53 36.8 C 60 18 114/61 96 Room Air 05/23/22 07:28 66 05/23/22 03:15 36.8 C 66 20 113/67 97 Room Air 05/22/22 22:05 60 05/22/22 23:36 36.8 C 61 20 97/58 L 94 Room Air Laboratory Results Abnormal lab results 05/22/22 05/22/22 05/23/22 Range/Units 16:38 23:12 06:23 RBC 3.89 L (3.93-5.22) M/uL Hgb 11.3 L (12.0-16.0) g/dl Hct 33.5 L (34.1-44.9) % Lymph # (Auto) 3.84 H (1.2-3.4) K/uL Immature Gran # (Auto) 0.03 H (0.00-0.02) K/uL APTT 43.0 H 44.4 H (21.0-31.0) Seconds 05/23/22 Range/Units 06:23 RBC (3.93-5.22) M/uL Hgb (12.0-16.0) g/dl Hct (34.1-44.9) % Lymph # (Auto) (1.2-3.4) K/uL Immature Gran # (Auto) (0.00-0.02) K/uL APTT 39.9 H (21.0-31.0) Seconds Diagnostic Findings Cardiac Cath Summary: 1. Normal epicardial coronary arteries 2. Normal LV function 3. Mild to moderate mitral regurgitation PG Care Time/CCT Total # of Minutes Spent Total Time Spent with Patient: Total time spent is greater than 50% in coordination of care (as documented) at patient's floor/unit and/or counseling patient: Coding Level of Care Code 69676 SUB INP/OBS CARE 2/35MIN Diagnoses NSTEMI (non-ST elevated myocardial infarction) I21.4 Hyperlipidemia E78.5 PAF (paroxysmal atrial fibrillation) I48.0 Benign essential hypertension I10 GERD (gastroesophageal reflux disease) K21.9 Hypomagnesemia E83.42 Constipation K59.00
[2022-05-23] MEDS ORDERED: fentaNYL citrate 100 MCG/2 ML VIAL ONE (09:16)
[2022-05-23] MEDS ORDERED: MIDAZOLAM HCL 1 MG/ML 2ML VIAL ONE ×2 (09:16→09:46)
[2022-05-23] MEDS ORDERED: niCARdipine HCL INJ 2.5 MG/ML 10 ML AMP ONE (09:16)
[2022-05-23] MEDS ORDERED: HEPARIN (PORCINE) 1000 UNIT/ML 10 ML (CATH LAB USE ONLY) ONE (09:16)
[2022-05-23] MEDS ORDERED: NITROGLYCERIN/D5W 100MCG/ML 20ML SYR ONE (09:17)
[2022-05-23 09:20] LABS: BUN Creatinine Ratio 17.9 (10-20); Calcium 8.9 mg/dl (8.5-10.1); Creatinine Clr Calc Pharmacy 63.8 ml/min; Est GFR (African American) 78.7 ml/min; Est GFR (Non-African American) 67.9 ml/min; Magnesium 1.7 mg/dl (1.7-2.4); Potassium 4.1 mmol/L (3.5-5.1)
[2022-05-23] MEDS ORDERED: diphenhydrAMINE 50 MG/ML VIAL ONE (09:43)
--- NOTE | 2022-05-23 10:27 | Pre Anesthesia Assessment ---
Date of Service May 23, 2022 Pre Sedation Assessment Vital Signs Temp Pulse Pulse Resp BP Pulse Ox O2 Del Method 05/23/22 10:10 49 L 16 94/59 L Room Air 05/23/22 09:00 Room Air 05/23/22 07:53 36.8 C 60 18 114/61 96 Room Air 05/23/22 07:28 66 05/23/22 03:15 36.8 C 66 20 113/67 97 Room Air 05/22/22 22:05 60 05/22/22 23:36 36.8 C 61 20 97/58 L 94 Room Air 05/22/22 18:00 Room Air 05/22/22 19:57 37.0 C 87 20 113/63 95 Room Air 05/22/22 16:08 54 L 05/22/22 15:54 36.8 C 57 L 18 89/45 L 95 Room Air 05/22/22 12:00 36.7 C 50 L 18 95/59 L 100 Room Air Cardiovascular RRR, no murmur, no edema Respiratory normal respiratory effort, lungs clear to auscultation Pre-Sedation Airway Assessment Smoking Status: Former smoker Hx Sleep Apnea: No Short, Thick Neck: No Thyromental Distance: > or= 3.5 Finger Breadths Oral Cavity: + WNL Mallampati Class: II ASA: ASA2 NPO Status Date of Last Intake of Fluids: 05/23/22 Time of Last Intake of Fluids: 07:00 Date of Last Intake of Solid Food: 05/22/22 Time of Last Intake of Solid Foods: 18:00 Notes The planned sedation has been discussed with the patient. Informed Consent was obtained. I have identified the patient, determined the appropriateness of sedation and have assessed the patient immediately prior to the procedure. All medicine(s) and interventions are by my order.
--- NOTE | 2022-05-23 10:28 | Post Anesthesia Assessment ---
Date of Service May 23, 2022 Post Sedation Assessment Vital Signs Temp Pulse Pulse Resp BP Pulse Ox O2 Del Method 05/23/22 10:10 49 L 16 94/59 L Room Air 05/23/22 09:00 Room Air 05/23/22 07:53 36.8 C 60 18 114/61 96 Room Air 05/23/22 07:28 66 05/23/22 03:15 36.8 C 66 20 113/67 97 Room Air 05/22/22 22:05 60 05/22/22 23:36 36.8 C 61 20 97/58 L 94 Room Air 05/22/22 18:00 Room Air 05/22/22 19:57 37.0 C 87 20 113/63 95 Room Air 05/22/22 16:08 54 L 05/22/22 15:54 36.8 C 57 L 18 89/45 L 95 Room Air 05/22/22 12:00 36.7 C 50 L 18 95/59 L 100 Room Air Recovery Score Activity: Moves 4 extremities Respiration: Deep Breath/Cough Circulation: +/-20% PreAnes Value Consciousness: Fully Awake Oxygen Saturation: > 92% On Room Air Post Anesthesia Score: 10 Discharge Sedation Level of Care: Phase I Post Sedation Plan On clinical assessment, the patient appears to have tolerated the sedation without complications. Patient is recovering as anticipated. Patient will continue to be monitored by nursing and may be discharged when sedation discharge criteria are met per below protocol. Upon Completions of procedure up to 15 minutes continue every 5 minute vital signs and the P.A.R. score; then discharge to a Phase I or Fast Track to Phase II per the following guidelines: * Discharge Patient to appropriate Phase II area if PAR is 8 or greater or return to pre- procedure baseline. The post - procedure orders will be as directed. * If PAR score is less than 8 or not return to pre-procedure baseline then patient will follow Phase I monitoring till PAR is reached for Phase II. The Phase I may be done in procedure room or may call to secure a Phase I area. * If naloxone or flumazenil are used for reversal, hold in Phase I for continued monitoring from when last reversal dose was given for a minimum of 60 minutes or longer pending the nurse and/or physician discretion of patient condition before discharge to Phase II. Please call the Sedation Physician to re-evaluate and complete post-note for discharge to Phase II area. Do NOT discharge from procedure sedation or Phase 1 until post- sedation evaluation note is complete by procedure /sedation MD Sedation Discharge Instructions to be given to the patient at discharge to home. [facility] [place] Procedure Codes (Charges) Indication for Procedure Indication for procedure: NSTEMI Sedation/Anesthesia Procedure 1: Sedation/Anesthesia: 46683 Mod Sedation by the same physician;Init15 Min Child Age 5 & Up Total Sedation Time (minutes): 13
--- NOTE | 2022-05-23 10:33 | Cardiac Catheterization ---
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 Cardiac Status Clinical evaluation leading to the procedure CAD Presenation: Non STEMI Anginal Classification: CCS IV Heart Failure: No Cardiogenic Shock within 24 Hours: No Cardiac Arrest within 24 Hours: No Imaging Studies Past 6 Months: No Stress Studies Past 6 Months: No Coronary Anatomy Dominant: Right Left Main (% Stenosis): Normal LAD (% Stenosis): Normal D1 (% Stenosis): Normal D2 (% Stenosis): Normal Circumflex (% Stenosis): Normal OM1 (% Stenosis): Normal OM2 (% Stenosis): Normal L PL1 (% Stenosis): Normal RCA (% Stenosis): Normal R PDA (% Stenosis): Normal R PL1 (% Stenosis): Normal Left Ventricular Angiography EF (%): 55 to 60% Mitral Regurgitation: 1+ (1-2+) Diagnostic Physicians Name: Morgan Lopez MD, PhD Closure Device Percutaneous Entry Location: Radial Closure Device: Radial Band Recommendations: Medical Therapy and/or Counseling Cardiac Cath Procedure Full Procedure Date May 23, 2022 Pre-Procedure Diagnosis Pre-Procedure Diagnosis: Non STEMI AUC Score AUC Score: 07 Post-Procedure Diagnosis Post-Procedure Diagnosis: Normal Coronary Arteries Procedure(s) Performed Procedure(s) Performed: Coronary Angiography, Left Heart Cath and LV Angiography [employer] Morgan Lopez MD, PhD Estimated Blood Loss Estimated Blood Loss: 2 ml Medication(s) Medication(s): Diphenhydramine, Fentanyl, Heparin, Lidocaine 1%, Nicardipine, Nitroglycerin and Versed Summary of Findings Brief description: Patient was brought to the cardiac catheterization suite where she was shaved an d prepped in a sterile fashion. Sedated using IV Versed, fentanyl, and Benadryl. Soft tissues of the right wrist were anesthetized using 2 mL of 1% Xylocaine. The right radial artery was accessed using a modified Seldinger technique and a 6 [place] radial artery glide sheath was placed. Patient was provided anticoagulation with IV heparin and antispasmodics including verapamil and nitroglycerin. All catheters were advanced and exchanged over a 0.035 J-tip wire. Left coronary angiography in orthogonal views with a 5 [place] Mcclure 4 diagnostic catheter. Right coronary angiography in orthogonal views with a 5 [place] Mcclure 4 diagnostic catheter. Left heart cath and left ventriculogram were performed with a 5 [place] pigtail catheter. Diagnostic catheters were removed. Radial artery sheath was removed. Hemostasis was obtained using a TR band. Patient remained hemodynamically stable and asymptomatic. She was returned to the recovery area. This ended the case. Coronary angiography and ventriculogram findings: LMT: Large-caliber vessel bifurcating into the LAD and left circumflex. No angiographically evident disease. LAD: Large caliber and transapical. Gives several large septal branches. Medium caliber first diagonal and medium to large caliber branching second diagonal. No more than scattered luminal irregularities. LCx: Large caliber and nondominant. Provides a large caliber branching OM1. Then a small caliber OM 2 terminates distally as a large caliber long posterior lateral branch. There is no angiographically significant disease in the circumflex or its branches. RCA: Large caliber and dominant. Bifurcates distally into the PDA and multi branching posterolateral. No angiographically significant disease in the RCA or its branches. LVEF: 55 to 60% 1-2+ MR Summary: 1. Normal epicardial coronary arteries 2. Normal LV function 3. Mild to moderate mitral regurgitation Hemodynamics Rest Ao:: 127/63 mmHg, mean 87 mmHg Final Ao: 112/67 mmHg, mean 87 mmHg LV: 98/-9 mmHg, LVEDP 2 mmHg Recommendations Recommendations: Medical Therapy and/or Counseling Radiation Exposure (mGy) 322 mGy, fluoroscopy time 2.0 minutes Contrast (mls) 51 mL Anesthesia 3 mg IV Versed, 75 mcg IV fentanyl, 25 mg IV Benadryl Procedural Complication(s) None Disposition Recovery Room\PACU I attest to the content of the Intraoperative Record and any orders documented therein. Any exceptions are noted below. [facility] Card Cath Procedure Codes Cardiac Catheterization Procedure 1: Cardiovascular Cath Procedures: 33328 Coronaries and LHC (+/-LV) Moderate Sedation Procedure 1: Sedation/Anesthesia: 59255 Mod Sedation by the same physician;Init15 Min Child Age 5 & Up (13 minutes) PG Care Time/CCT Total # of Minutes Spent Total Time Spent with Patient: Total time spent is greater than 50% in coordination of care (as documented) at patient's floor/unit and/or counseling patient:
[2022-05-23] MEDS: HEPARIN SODIUM/DEXTROSE 25,000 UNITS/500 ML BAG IV SCH (11:27)
[2022-05-23 14:43] LABS: Partial Thromboplastin Time 27.3 Seconds (21.0-31.0)
[2022-05-23] MEDS: MELATONIN 3 MG TAB PO PRN (21:15)
[2022-05-23] MEDS: DOCUSATE SODIUM 100 MG CAP PO SCH (21:16)
[2022-05-23] MEDS: APIXABAN 5 MG TABLET PO SCH (21:17)
--- NOTE | 2022-05-24 07:46 | Hospitalist Progress Note ---
Date of Service May 24, 2022 Assessment & Plan (1) NSTEMI (non-ST elevated myocardial infarction): Plan: Cardiology felt was likely type II non-ST elevation [place] secondary to possible tachycardia. The Eliquis was held and patient started on a heparin drip. Patient had heart cath today that was normal epicardial coronary arteries and normal LV function with only mild mitral regurg Cardiology recommended that patient should remain on low-dose aspirin, low-dose beta-william, high intensity statin therapy, and angiotensin receptor william and stated further recommendations to follow after cardiac cath. Heparin stopped and Eliquis to restart tonight. (2) Hyperlipidemia: Plan: Continue Lipitor 40mg (3) PAF (paroxysmal atrial fibrillation): Plan: Patient has an implantable loop recorder (placed 01/02/21) Cardiology planning on interrogation of this device. Awaiting [facility] [employer] rep (4) Benign essential hypertension: Plan: HCTZ and losartan have been utilized. Blood pressure is adequately controlled at this time - 108/72 (5) GERD (gastroesophageal reflux disease): Plan: Continue PPI therapy (6) Hypomagnesemia: Plan: Parenteral replacement.Normal now at 1.7 (7) Constipation: Plan: Added Colace one BID Discussed increasing po water intake and fiber supplement Discussed due to have a follow up colonoscopy (constipation and occasional LUQ abdominal pain - no pain currently) Patient to follow up with GI as outpatient Admission and Anticipated Discharge Date Admission Date: May 22, 2022 Review of Systems Constitutional: no fever, no chills and no sweats Ear, Nose, Mouth, Throat: no dizziness, no nasal discharge and no post nasal drip Respiratory: no cough, no chest congestion, no dyspnea and no dyspnea on exertion Cardiovascular: no chest pain, no dyspnea, no edema and no calf pain Gastrointestinal: + abdominal pain and + constipation; no early satiety, no nausea, no diarrhea/loose stools and no blood in stools Genitourinary: no dysuria, no urinary hesitancy and no hematuria Integumentary: no rash, no lesions and no new lesions Neurologic: no falls, no tingling, no paresthesia and no headache(s) Endocrine: no polydipsia, no polyphagia and no polyuria Hematologic / Lymphatic: no easy bleeding, no easy bruising and no night sweats Allergy / Immunological: no cough, no dyspnea and no rash + sneezing Physical Exam Constitutional: WD/WN, vitals as above ENMT: external ear and nose normal, oropharynx normal Neck: trachea midline, no thyromegaly Respiratory: normal respiratory effort, lungs clear to auscultation Cardiovascular: RRR, no murmur, no edema Gastrointestinal (Abdomen): normal bowel sounds, soft, nontender, no hepatosplenomegaly Psychiatric: A+Ox3, euthymic affect Results & Data Results & Data ([facility]) Vital Signs (Past 12 Hours) Vital Signs Temp Pulse Pulse Resp BP Pulse Ox O2 Del Method 05/24/22 07:29 36.7 C 64 17 116/72 99 Room Air 05/24/22 04:30 36.7 C 56 L 18 105/61 98 Room Air 05/23/22 22:06 60 05/23/22 23:24 36.8 C 58 L 18 103/55 L 96 Room Air 05/23/22 21:00 37.1 C 66 18 115/64 97 Room Air PG Care Time/CCT Total # of Minutes Spent Total Time Spent with Patient: Total time spent is greater than 50% in coordination of care (as documented) at patient's floor/unit and/or counseling patient: Coding Diagnoses NSTEMI (non-ST elevated myocardial infarction) I21.4 Hyperlipidemia E78.5 PAF (paroxysmal atrial fibrillation) I48.0 Benign essential hypertension I10 GERD (gastroesophageal reflux disease) K21.9 Hypomagnesemia E83.42 Constipation K59.00
[2022-05-24 07:50] LABS: Basophils # (auto) 0.03 K/uL (0-0.2); Basophils % (auto) 0.4 %; Eosinophils # (auto) 0.09 K/uL (0-0.50); Eosinophils % (auto) 1.2 %; Hematocrit (blood only) 35.6 % (34.1-44.9); Hemoglobin 11.9 g/dl (12.0-16.0); Immature Granulocytes # (auto) 0.02 K/uL (0.00-0.02); Immature Granulocytes % (auto) 0.3 %; Lymphocytes # (auto) 2.89 K/uL (1.2-3.4); Mean Corpuscular Hemoglobin 29.5 pg (25.0-34.0); Mean Corpuscular Hgb Conc 33.4 g/dL (32.0-36.0); Mean Corpuscular Volume 88.1 fL (80.0-100.0); Mean Platelet Volume 9.9 fL (9.4-12.3); Monocytes # (auto) 0.43 K/uL (0.24-0.82); Monocytes % (auto) 5.5 %; Neutrophils # (auto) 4.35 K/uL (1.4-6.5); Neutrophils % (auto) 55.6 %; Platelet Count 323 K/uL (130-400); RDW Coefficient of Variation 12.2 % (11.5-14.5); RDW Standard Deviation 39.7 fL (36.4-46.3); Red Blood Count 4.04 M/uL (3.93-5.22); White Blood Count 7.81 K/ul (4.8-10.8)
[2022-05-24 08:17] LABS: Partial Thromboplastin Time 28.4 Seconds (21.0-31.0)
[2022-05-24] MEDS: oxyCODONE HCL IR 5 MG TAB (IMMEDIATE RELEASE) PO SCH (08:18)
[2022-05-24] MEDS: hydroCHLOROthiazide 25 MG TAB PO SCH (08:19)
[2022-05-24] MEDS: ASPIRIN 81 MG ECTAB PO SCH (08:19)
[2022-05-24] MEDS: ATORVASTATIN 40 MG TAB PO SCH (08:19)
[2022-05-24] MEDS: PANTOprazole 40 MG TAB PO SCH (08:19)
[2022-05-24] MEDS: LOSARTAN POTASSIUM 50 MG TAB PO SCH (08:19)
[2022-05-24] MEDS: DOCUSATE SODIUM 100 MG CAP PO SCH (08:19)
[2022-05-24] MEDS: APIXABAN 5 MG TABLET PO SCH (08:20)
--- NOTE | 2022-05-24 11:06 | Discharge Summary ---
Date of Service May 24, 2022 Admission HPI Per Admitting Provider 52yo female with a history of paroxysmal AF, HLD, CAD, RA, GERD, and FREDIS presents with a four-hour history of palpitations, central chest pain, left arm pain, and nausea. Symptoms started suddenly. Palpitations resolved prior to arrival to the ED; patients pain persists but has improved. Patient denies fever, chills, vision changes, SOB, edema, vomiting, dysuria, hematochezia, melena, numbness, tingling, weakness, or other symptoms. Denies recent illness and recent travel. Upon arrival, vitals were notable for elevated BP (160s/70s); no tachycardia, no tachypnea, patient afebrile, spO2 adequate on room air. Initial labs were notable for mild anemia (11.5) and mildly-elevated hsTroponin (36.8); no leukocytosis, platelets wnl, no electrolyte abnormalities, creatinine not elevated, LFTs wnl, Tbili not elevated, covid PCR negative. In the ED, patient received ASA 324mg, morphine, and zofran. EKG: sinus rhythm with PACs, no overt ischemic change CXR: cardiomegaly and mild emphysema with no acute cardiopulmonary abnormality identified Surrogate decision-maker in case of an emergency: herbie Cazares Cesar (cell: [phone]) Principal Diagnosis NSTEMI Discharge Exam Constitutional WD/WN, vitals as above Eyes PERRL, conjunctivae normal, anicteric sclerae ENMT external ear and nose normal, oropharynx normal Neck trachea midline, no thyromegaly Respiratory normal respiratory effort, lungs clear to auscultation Cardiovascular RRR, no murmur, no edema Gastrointestinal (Abdomen) normal bowel sounds, soft, nontender, no hepatosplenomegaly Skin no rashes, warm and dry Psychiatric A+Ox3, euthymic affect Lymphatic no cervical or axillary lymphadenopathy Discharge Data Allergies Allergy/AdvReac Type Severity Reaction Status Date / Time No Known Allergies Allergy Verified 05/29/22 14:26 Consultations 05/21/22 21:44 ED Decision to Admit Stat 05/22/22 07:00 Consult Cardiology Routine Procedures Performed Operation Date: 05/23/22 09:30 Actual Procedures p Cath, Left with Cors and Vent - Morgan Lopez MD, PhD s Cineradiography w/Routine Exam - Morgan Lopez MD, PhD Ordered Studies 05/23/22 08:06 CL Cath Imgs for PACS use only Routine Hospital Course (1) NSTEMI (non-ST elevated myocardial infarction): Cardiology felt was likely type II non-ST elevation [place] secondary to possible tachycardia. Initially the Eliquis was held and patient started on a heparin drip. Patient had heart cath 05/23/22 that was normal epicardial coronary arteries and normal LV function with only mild mitral regurg Cardiology recommended that patient should remain on low-dose aspirin, low-dose beta- william, high intensity statin therapy, and angiotensin receptor william and st ated further recommendations to follow after cardiac cath. Heparin stopped after cath and Eliquis to restarted. (2) Hyperlipidemia: Continue Lipitor 40mg (3) PAF (paroxysmal atrial fibrillation): Patient has an implantable loop recorder (placed 01/02/21) Cardiology planned on interrogation of this device yesterday but device was a [facility] and not able to be done here. Patient will follow up in cardiology office 1-2 weeks after discharge and will have the device interrogated at that appointment. (4) Benign essential hypertension: Continue HCTZ and losartan. Blood pressure is adequately controlled at this time - 116/72 (5) GERD (gastroesophageal reflux disease): Continue PPI therapy (6) Hypomagnesemia: Replaced and was normal at 1.7 (7) Constipation: Discussed continue adequate po water intake, fiber intake and Colace BID Discussed her occasional LUQ pain (none while admitted) and that she is due for screening colonoscopy and should follow up with her GI physician upon discharge Total Time Total Time Spent Total Time Spent (In Minutes): 35 Discharge Plan Discharge Items Patient Disposition: Home - Self-Care Reason For Visit: PALPITATIONS, CP Discharge Diagnosis: Type II NSTEMI Condition on Discharge: Good Activity: Resume your previous activity Lifting: Gradually increase as tolerated Weightbearing: Full weightbearing Non-emergency contact: Primary Care Provider and Manager Of Corporate Call non-emergency contact if: you have any medication questions Follow-up/Referrals: Priscilla Obregon DO [Primary Care Provider] - Diet: Heart Healthy Addtl Attending Provider Instructions: You were admitted with chest pain, palpitations and nausea. You were evaluated by cardiology and had a normal heart catheterization. Cardiology wanted to to interrogate your loop recorder and plan to do this from ther office in 1-2 weeks. You should remain on your Eliquis, Lipitor, HCTZ and Losartan. You also should continue to take a 81mg Aspirin daily. 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 Also discussed having adequate water intake and increasing fiber in your diet and also adding a fiber supplement. You will also be ordered Colace one 2 x per day as needed for constipation. Pending Studies at Discharge: No Stand-Alone Forms: My [facility] IQ, Work/School Release Medications and DC Order Prescriptions: New aspirin 81 mg Tablet,Delayed Release (Dr/Ec) 81 mg PO QAM Qty: 30 0RF docusate sodium 100 mg Capsule 100 mg PO BID Qty: 30 0RF Continued atorvastatin 40 mg tablet 40 mg PO DAILY Qty: 30 2RF hydrochlorothiazide 25 mg tablet 25 mg PO DAILY Eliquis 5 mg tablet 5 mg PO BID losartan 100 mg tablet 100 mg PO DAILY melatonin 10 mg tablet 30 mg PO HS PRN (Reason: Sleep) pantoprazole [Protonix] 40 mg tablet,delayed release (DR/EC) 40 mg PO DAILY Qty: 30 2RF No Action metoprolol succinate 50 mg tablet extended release 24 hr 50 mg PO DAILY Qty: 100 3RF Rx Instructions: Take 1 tablet by mouth every day and may take an extra dose as needed for breakthrough A-Fib oxycodone 10 mg tablet 10 mg PO Q8H ergocalciferol (vitamin D2) 1,250 mcg (50,000 unit) capsule 1,250 mcg PO WK Rx Instructions: TAKES ON WEDNESDAYS Discharge Orders: Discharge Order (Routine); Ordered 05/24/22 Ordered By: Alena Garcia/Other Patient Handouts: Anticoagulants, Identifying Your Heart Risks, Warning Signs of a Heart Attack, AFib Preventing Stroke, AFib Admission Data Admit Date/Time: 05/22/22 08:23 Attending Provider: Andrey Canchola Admit Provider: Maciel Moran Primary Care Provider: Priscilla Obregon Other Providers: Melisa Cali ; Vignesh Wen Other Interventions: Discharge Summary Assessment (RN) Last Done: 05/24/22 11:32 Supervising Physician Co-Signing Physician Notes Patient seen and examined at bedside. During face to face encounter, I obtainted a history of her hospital stay, and obtained a physical examination. I discussed discharge plan with patient and SILAS King. I reviewed above note and agree with it. Patient was seen and examined for type II NSTEMI. Patient will resume eliquis. Appreciate input from Cardio. Coding Level of Care Code HOSP INP/OBS DISCH >30 MIN Diagnoses NSTEMI (non-ST elevated myocardial infarction) I21.4 Hyperlipidemia E78.5 PAF (paroxysmal atrial fibrillation) I48.0 Benign essential hypertension I10 GERD (gastroesophageal reflux disease) K21.9 Hypomagnesemia E83.42 Constipation K59.00 Time Spent (min) 35
== END 2022-05-24 13:07 | disposition home or self-care (01) | DRG 281 ==
LOC: ED 19:54 → EDINP 19:54 → SUATTDRO 22:43 → EDINP 05-22 02:47 → 2N 05-22 03:59 → SUATTDRO 05-22 08:23 → 2E 05-23 10:34

== ENCOUNTER 2023-01-13 21:44 | Observation (INO) ==
--- NOTE | 2023-01-13 22:35 | XRay Report ---
SINGLE VIEW CHEST CLINICAL HISTORY: Atypical chest pain FINDINGS: A PA chest radiograph is compared to study dated 05/28/2022. Correlation is made with chest CT dated 05/31/2021. An electronic device projects over the mediastinum. The heart is mildly enlarged noting atherosclerotic calcification of the thoracic aorta. The pulmonary vasculature is noncongested . Mild emphysema and chronic interstitial thickening is somewhat previous. There is bibasilar scarrin g/atelectasis The lungs and pleural spaces are otherwise clear. No pneumothorax is seen. The skeletal structures are osteopenic. The bony thorax is grossly intact. IMPRESSION: No active disease in the chest. ACT 112: Negative or not required by law. Electronically signed by: Ayo Cruz M.D. 01/13/2023 10:33 PM
[2023-01-13 22:43] LABS: Basophils # (auto) 0.04 K/uL (0.00-0.20); Basophils % (auto) 0.4 %; Eosinophils # (auto) 0.06 K/uL (0.00-0.50); Eosinophils % (auto) 0.6 %; Hematocrit (blood only) 32.9 % (37.0-47.0); Immature Granulocytes # (auto) 0.03 K/uL (0.01-0.20); Immature Granulocytes % (auto) 0.3 %; Lymphocytes # (auto) 2.87 K/uL (1.20-3.40); Lymphocytes % (auto) 29.5 %; Mean Corpuscular Hemoglobin 30.3 pg (25.0-34.0); Mean Corpuscular Hgb Conc 33.4 g/dL (32.0-36.0); Mean Corpuscular Volume 90.6 fL (80.0-100.0); Mean Platelet Volume 11.1 fL (9.4-12.4); Monocytes # (auto) 0.53 K/uL (0.11-0.59); Monocytes % (auto) 5.4 %; Neutrophils # (auto) 6.21 K/uL (1.40-6.50); Neutrophils % (auto) 63.8 %; Platelet Count 233 K/uL (130-400); RDW Coefficient of Variation 12.3 % (11.5-14.5); RDW Standard Deviation 40.8 fL (36.4-46.3); Red Blood Count 3.63 M/uL (4.20-5.40); White Blood Count 9.74 K/ul (4.8-10.8)
[2023-01-13 22:57] LABS: Alanine Aminotransferase 8 U/L (7-52); Albumin Globulin Ratio 2.4 (0.9-2); Albumin Level 4.3 gm/dl (3.4-5.0); Alkaline Phosphatase 64 U/L (34-104); Anion Gap 6 (3-11); Aspartate Aminotransferase 11 U/L (13-39); BUN Creatinine Ratio 15.7 (10-20); Bilirubin,Total 0.3 mg/dl (0.2-1.0); Blood Urea Nitrogen 17 mg/dl (6-23); Calcium 8.9 mg/dl (8.6-10.3); Carbon Dioxide 26 mmol/L (21-32); Chloride 102 mmol/L (98-107); Est GFR (African American) 67.4 ml/min; Est GFR (Non-African American) 58.2 ml/min; Globulin 1.8 gm/dl (2.5-4.0); Glucose 98 mg/dl (70-99(Fasting)); Potassium 3.7 mmol/L (3.5-5.1); Sodium 134 mmol/L (136-145); Total Protein 6.1 gm/dl (6.0-8.3)
[2023-01-13 23:03] LABS: Troponin I High Sensitivity 12.3 pg/ml (0-14)
[2023-01-13 23:10] LABS: INR 1.1 (0.9-1.1); Partial Thromboplastin Ratio 1.1; Partial Thromboplastin Time 31.6 Seconds (21.0-31.0); Prothrombin Time 11.5 Seconds (9.0-12.0)
[2023-01-13] MEDS ORDERED: SODIUM CHLORIDE 0.9% 500 ML IV ONE (23:58)
[2023-01-14 00:18] LABS: Magnesium 1.5 mg/dl (1.7-2.4)
[2023-01-14] MEDS ORDERED: LORazepam 1 MG TAB SL STA (00:24)
[2023-01-14] MEDS: MAGNESIUM SULFATE / D5W 1 GM/100 ML BAG IV SCH ×2 (00:30→01:37)
[2023-01-14] MEDS ORDERED: Heparin IV Adult Wt-Based Low-Dose WITH Bolus Protocol IV STA (02:27)
[2023-01-14] MEDS ORDERED: ASPIRIN CHEW 324 MG PO STA (02:28)
[2023-01-14] MEDS ORDERED: HEPARIN SOD (PORCINE) 1000 UNIT/ML IV ONE (02:42)
[2023-01-14] MEDS ORDERED: HEPARIN SOD (PORCINE) 1000 UNIT/ML IV STA (02:45)
[2023-01-14] MEDS ORDERED: HEPARIN SODIUM/DEXTROSE 25,000 UNITS/500 ML BAG IV SCH (02:45)
--- NOTE | 2023-01-14 03:31 | History & Physical Report ---
Date of Service January 14, 2023 Assessment & Plan (1) Chest pain: Plan: -New onset of chest pressure/pain sensation. -Initial trop 12.5, then 55.7, will get repeat and trend until peak. -CXR unremarkable. -Initial EKG bradycardic w/ PACs but without any new ST abnormalities. -Chest pain somewhat reproducible but similar feeling to previous NSTEMI. -Will obtain echocardiogram to check for any new anatomic abnormalities. -Started on heparin in the ED however less likely SD and heparin held on admission, if trop dramatically rises can place back on heparin. -Resume home Eliquis for anticoagulation. -Monitor on telemetry. -Remind patient before discharge to schedule cardiology appointment for loop recorder. (2) PAF (paroxysmal atrial fibrillation): Plan: -Hx of atrial fibrillation, loop recorder deactivated and will need new one. -EKG without evidence for atrial fibrillation currently. -Continue home metoprolol and Eliquis. (3) Bradycardia: Plan: -Patient has had talks about pacer before with cardiology however too young at this point and they were looking to loop recorder to determine how often she was bradycardic. F/u with cardiology outpatient. (4) Benign essential hypertension: Plan: -BP w/in normal limits in the ED, can continue home losartan, hydrochlorothiazide, amlodipine, metoprolol. If persistently hypotensive may benefit from holding one at a time and seeing how much patient can tolerate. (5) Tobacco use: Plan: -Discussed cessation, patient will follow up with PCP on cessation. Can order nicotine patch while inpatient. Plan F/E/N/GI: Heart Healthy diet. DVT Prophylaxis: home Eliquis. Code status: Full Dispo: Med/tele Edson Gerardo D.O. PGY3. History of Present Illness Chief Complaint: Hypertension, chest pressure Primary Care Provider: DO Venessa Flanagan is a 52 year old female w/ PmHx paroxysmal atrial fibrillation on Eliquis, sympotmatic PACs, HTN, HLD, GERD, anxiety, prediabetes coming in to the ED for a high blood pressure earlier in the day. Patient states that over the weekend she developed nausea and vomiting, fevers, chills, decreased appetite. She was only able to intake some chicken noodle soup but was able to keep well hydrated during that time. Friday she started to feel better however had a sudden episode of palpitations, high pressure to 175/75 when prior to this it was 98/49, as well as lightheadedness. She states she experienced a heaviness in her chest with this that is at times worse with motion. The heaviness she describes as the feeling of something heavy being on top of her chest. She experienced similar feelings when she had her NSTEMI back in May/Jun of this past year. She also has had shortness of breath with movement at times but that has been present since prior cardiac eval. Her nausea has since abated. She has a past history of NSTEMI about 8 or 9 months back, eval at that time showed negative cardiac catheterization. She follows with Dr. Mai in the outpatient setting and had a loop recorder in place however she states she was told recently this past week that her loop recorder was deactivated and needed replacement. She has not yet scheduled for a replacement for this. Patient is a smoker at 1ppd, has tried to quit in the past but unsuccessful with gum and patches. She has been talking about this with her PCP. Denies alcohol or elicit drug use. 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 In the ED blood work remarkable for magnesium 1.5, troponin 12.5 to 55.7. CXR unremarkable. She was given 1mg ativan, 1L NSS, repleted 2gm magnesium, given aspirin 324mg, and started on a heparin drip. Allergies Allergy/AdvReac Type Severity Reaction Status Date / Time No Known Allergies Allergy Verified 12/19/22 09:28 Home Medications Medication Instructions Recorded Confirmed Type hydrochlorothiazide 25 mg tablet 25 mg PO QAM 05/15/22 01/15/23 History melatonin 10 mg tablet 30 mg PO HS PRN Sleep 05/15/22 01/15/23 History docusate sodium 100 mg capsule 100 mg PO BID #30 caps 05/24/22 01/15/23 Rx oxycodone 10 mg tablet 10 mg PO Q8H PRN Pain 05/28/22 01/15/23 History apixaban 5 mg tablet (Eliquis) 5 mg PO BID #180 tabs 07/02/22 01/15/23 Rx metoprolol succinate 50 mg 50 mg PO UD 07/30/22 01/15/23 History tablet,extended release 24 hr atorvastatin 40 mg tablet 40 mg PO QAM #90 tabs 08/14/22 01/15/23 Rx pantoprazole 40 mg tablet,delayed 40 mg PO QAM #90 tabs 08/14/22 01/15/23 Rx release (Protonix) losartan 100 mg tablet 100 mg PO QAM #90 tabs 10/28/22 01/15/23 Rx amlodipine 5 mg tablet 5 mg PO DAILY #90 tabs 11/14/22 01/15/23 Rx albuterol sulfate 90 mcg/actuation 1 inh inhalation QID PRN shortness 11/15/22 01/15/23 Rx aerosol inhaler of breath or wheezing #8.5 grams budesonide-formoterol HFA 160 1 inh inhalation BID #10.2 grams 11/15/22 01/15/23 Rx mcg-4.5 mcg/actuation aerosol inhaler (Symbicort) benzonatate 200 mg capsule 200 mg PO TID PRN cough #30 caps 12/03/22 01/15/23 Rx Past Med/Surg History Medical History (Updated 01/14/23 @ 18:31 by Lisandro Mai MD) Anxiety CAD (coronary artery disease) Normal coronaries on Cardiac Catheterization 05/23/22 Constipation GERD (gastroesophageal reflux disease) History of cervical cancer DX 1999/SX INTERVENTION Hyperlipidemia Hypomagnesemia HX / ? CURRENT LEVEL Irritable bowel syndrome NSTEMI (non-ST elevated myocardial infarction) MAY 2022/EVAL [facility]...CATH..NO BLOCKAGES/NO STENTS- PLACED ON MEDICATION PAF (paroxysmal atrial fibrillation) DX 2 YR AGO? / NO HX CARDIOVERSION Pre-diabetes Rheumatoid arthritis Vitamin D deficiency Surgical History History of ankle surgery History of appendectomy History of cardiac cath MAY 2022 ...[place]...NO BLOCKAGES /NO STENT(S) History of colonoscopy History of esophagogastroduodenoscopy (EGD) History of laparoscopy History of total abdominal hysterectomy WITH REMOVAL OF BOTH OVARIES d/t cervical cancer Intestinal adhesions SURGICAL LYSIS OF INTESTINAL ADHESIONS Status post placement of implantable loop recorder (2020) PRESENT Family History Mother Hx of CABG Cardiac disorder Diabetes Hypertension Myocardial infarction Peripheral vascular disease Father Emphysema of lung Brother Throat cancer Denies family history of Ovarian cancer Prostate cancer Breast cancer Colorectal cancer Social History Smoking Status: Current every day smoker Tobacco Type: Cigarettes Age Started Using Tobacco: 12; packs per day: 1; Cigarettes Per Day: 1PPD/ADVISED NPO; Second Hand Exposure: No; Do You Dip or Chew Tobacco: No; Hx Alcohol Use: No Hx Substance Use: No Preferred Language: Persian Communication Ability: Effective Visual Impairment: No Limitations Hearing Ability: Normal Mail Room Required: No Beliefs That Will Affect Care: None marital status: Current Living Situation: Family Current Living Situation Comment: 2 GRANDSONS current occupational status: employed 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 Physical Exam Constitutional: WD/WN, vitals as above Eyes: PERRL, conjunctivae normal, anicteric sclerae Respiratory: normal respiratory effort, lungs clear to auscultation Cardiovascular: RRR, no murmur, no edema Mild tenderness to palpation of the sternum and chest. Gastrointestinal (Abdomen): normal bowel sounds, soft, nontender, no hepatosplenomegaly Skin: no rashes, warm and dry Psychiatric: A+Ox3, euthymic affect Results & Data Results & Data Vital Signs (Past 12 Hours) Vital Signs Temp Pulse Pulse Resp BP BP Pulse Ox 01/14/23 02:14 59 L 18 100/54 L 92 01/14/23 00:15 59 L 01/14/23 00:00 46 L 18 138/95 97 01/13/23 21:55 36.8 C 50 L 20 121/64 98 O2 Del Method 01/14/23 02:14 Room Air 01/14/23 00:15 01/14/23 00:00 Room Air 01/13/23 21:55 Room Air Supervising Physician Co-Signing Physician Notes Patient seen and examined, chart reviewed, case discussed with Dr. Gerardo and I agree with the assessment and plan as above. In brief, patient is a 52yo female presenting with chest pain, increasing troponin. EKG with bradycardia and PACs, no acute ischemic changes or ST-T wave deviations On exam she is afebrile, HD stable, NAD Resting comfortably Skin - intact, no rash HEENT - NC/AT, PERRL, MMM, Neck supple Heart - +S1/S2, regular, some degree of reproducible chest wall pain present Lungs - CTA anteriorly, no rales/rhonchi/wheezes Abd - +BS, soft, NT/ND Labs and images reviewed. Troponin of 12.5 initially which increased to 55.7 on repeat Assessment/Plan - atypical chest pain, increasing troponin. Etiology unclear - story not overly concerning for ACS -Telemetry monitoring -Trend troponin -Check 2D echo -Will discontinue heparin gtt for now - doubt that patient will be going to the quality control lab technician during this admission. Will resume Eliquis -Remainder of plan as above Resident Activity Tracking Resident Involvement: Resident Care Provided Care Provided: Adult Hospital Medicine
[2023-01-14] MEDS ORDERED: ACETAMINOPHEN 325 MG TAB PO PRN (05:25)
[2023-01-14] MEDS ORDERED: ALBUTEROL HFA 8 GM INHALER INH PRN (05:25)
[2023-01-14] MEDS ORDERED: oxyCODONE HCL IR 5 MG TAB (IMMEDIATE RELEASE) PO PRN (05:25)
[2023-01-14] MEDS ORDERED: ONDANSETRON INJ 2 MG/ML 2 ML VIAL IV PRN (05:25)
[2023-01-14] MEDS ORDERED: MELATONIN 3 MG TAB PO PRN (05:40)
--- NOTE | 2023-01-14 06:54 | Emergency Department Note ---
ED Provider Note CHIEF COMPLAINT: Chest heaviness, palpitations HISTORY OF PRESENT ILLNESS: This 52-year-old female patient past medical history of atrial fibrillation, tobacco use, essential hypertension, bradycardia presents to the emergency department with complaints of chest heaviness. The patient states she had a sudden onset of the discomfort and then she got a hot flash. Her heart rate shot up and she became very jittery. Currently the patient is feeling improved although she can every now and then feel a skipped heartbeat. REVIEW OF SYSTEMS: A review of systems was performed with positives and pertinent negatives listed in the history of present illness. 10 systems were reviewed and are otherwise negative. ALLERGIES: see below MEDICATIONS: see below PMH: see below SOCIAL HISTORY: see below DDx:Premature contractions, electrolyte abnormality, cardiac dysrhythmia, thyroid dysfunction, pulmonary embolism, infection, gastrointestinal, as well as other pathologies. PHYSICAL EXAM: Vital signs reviewed. General: Well-appearing 52-year-old, in no significant distress. HEENT: No scleral icterus, PERRLA, neck supple. Atraumatic. Cardiovascular: Bradycardic with occasional ectopy. No extra sounds. Pulmonary: Clear to auscultation bilaterally, normal work of breathing. Abdomen: Soft, nontender, nondistended, positive bowel sounds. Musculoskeletal: Atraumatic, no peripheral edema. Neurologic: Patient awake alert and oriented x 3, speech is clear Skin: Warm, dry, no rash EMERGENCY DEPARTMENT COURSE/MDM: [] MONITORING: An order for cardiac monitoring was placed and the patient is noted to be in a sinus bradycardia with PVCs at 54 beats per minute. RADIOLOGY: EKG: Sinus bradycardia at with PACs at 59 bpm. QTc is 421. No PVC, no PAC. ST segments are normal. T wave abnormality in the anterior leads. DISPOSITION: Admission I have personally spent 45 minutes of critical care time in the direct management of this patient. This was a life/limb threatening event. This 45 minutes is in excess of all separately billable procedures. Past Med/Surg History Medical History (Updated 01/14/23 @ 04:14 by Edson Gerardo DO) Anxiety CAD (coronary artery disease) Normal coronaries on Cardiac Catheterization 05/23/22 Constipation GERD (gastroesophageal reflux disease) History of cervical cancer DX 1999/SX INTERVENTION Hyperlipidemia Hypomagnesemia HX / ? CURRENT LEVEL Irritable bowel syndrome NSTEMI (non-ST elevated myocardial infarction) MAY 2022/EVAL [facility]...CATH..NO BLOCKAGES/NO STENTS- PLACED ON MEDICATION PAF (paroxysmal atrial fibrillation) DX 2 YR AGO? / NO HX CARDIOVERSION Pre-diabetes Rheumatoid arthritis Vitamin D deficiency Surgical History History of ankle surgery History of appendectomy History of cardiac cath MAY 2022 ...[place]...NO BLOCKAGES /NO STENT(S) History of colonoscopy History of esophagogastroduodenoscopy (EGD) History of laparoscopy History of total abdominal hysterectomy WITH REMOVAL OF BOTH OVARIES d/t cervical cancer Intestinal adhesions SURGICAL LYSIS OF INTESTINAL ADHESIONS Status post placement of implantable loop recorder (2020) PRESENT Family History Mother Hx of CABG Cardiac disorder Diabetes Hypertension Myocardial infarction Peripheral vascular disease Father Emphysema of lung Brother Throat cancer Denies family history of Ovarian cancer Prostate cancer Breast cancer Colorectal cancer Social History Smoking Status: Never smoker Tobacco Type: Cigarettes Age Started Using Tobacco: 12; packs per day: 1; Cigarettes Per Day: 1PPD/ADVISED NPO; Second Hand Exposure: No; Do You Dip or Chew Tobacco: No; Hx Alcohol Use: No Hx Substance Use: No Preferred Language: Slovak Communication Ability: Effective Visual Impairment: No Limitations Hearing Ability: Normal Bottom Liquor Attendant Required: No Beliefs That Will Affect Care: None marital status: Current Living Situation: Family Current Living Situation Comment: 2 GRANDSONS current occupational status: employed 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 Feels Safe at Home: Yes Childhood Exposure to Second-Hand Smoke: No Diet Comment: patient has dentures caffeine: Yes (Soda x 3 per day.) during the past year weight has: increased > 10 lbs Dental Care, Regularly: No Physical Activity Frequency: Daily Seatbelt Use: always Sunscreen Use: No Assistive Devices: Denture - Upper, Denture - Lower and Glasses Allergies Allergies Allergy/AdvReac Type Severity Reaction Status Date / Time No Known Allergies Allergy Verified 12/19/22 09:28 Home Meds Home Medications Medication Instructions Recorded Confirmed hydrochlorothiazide 25 mg tablet 25 mg PO QAM 05/15/22 01/14/23 melatonin 10 mg tablet 30 mg PO HS PRN Sleep 05/15/22 01/14/23 oxycodone 10 mg tablet 10 mg PO Q8H PRN Pain 05/28/22 01/14/23 metoprolol succinate 50 mg 50 mg PO UD 07/30/22 01/14/23 tablet,extended release 24 hr Previous Rx's Medication Instructions Recorded docusate sodium 100 mg capsule 100 mg PO BID #30 caps 05/24/22 apixaban 5 mg tablet (Eliquis) 5 mg PO BID #180 tabs 07/02/22 atorvastatin 40 mg tablet 40 mg PO QAM #90 tabs 08/14/22 pantoprazole 40 mg tablet,delayed 40 mg PO QAM #90 tabs 08/14/22 release (Protonix) losartan 100 mg tablet 100 mg PO QAM #90 tabs 10/28/22 amlodipine 5 mg tablet 5 mg PO DAILY #90 tabs 11/14/22 albuterol sulfate 90 mcg/actuation 1 inh inhalation QID PRN shortness 11/15/22 aerosol inhaler of breath or wheezing #8.5 grams budesonide-formoterol HFA 160 1 inh inhalation BID #10.2 grams 11/15/22 mcg-4.5 mcg/actuation aerosol inhaler (Symbicort) benzonatate 200 mg capsule 200 mg PO TID PRN cough #30 caps 12/03/22 Results & Data (ED) Vital Signs Vital Signs - 24 hr 01/13/23 21:55 01/14/23 00:00 01/14/23 00:15 Temperature 36.8 C Temperature Source Temporal Artery Scan Pulse Rate 50 L 59 L Pulse Rate [Finger] 46 L Pulse Rhythm Regular Pulse Strength Normal Respiratory Rate 20 18 Respiratory Effort / Characteristics Non-Labored Spontaneous Respiratory Depth Normal Blood Pressure 121/64 Blood Pressure [Right Arm] 138/95 Blood Pressure Mean 83 Blood Pressure Mean [Right Arm] 109 Blood Pressure Position Sitting Pulse Oximetry 98 97 Oxygen Delivery Method Room Air Room Air Sepsis Recent Fever Within 48 Hours No Sepsis New/Unexplained Change in Mental Status N/A Sepsis Action Taken by Nursing No Action Required 01/14/23 02:14 Temperature Temperature Source Pulse Rate Pulse Rate [Finger] 59 L Pulse Rhythm Pulse Strength Respiratory Rate 18 Respiratory Effort / Characteristics Respiratory Depth Blood Pressure Blood Pressure [Right Arm] 100/54 L Blood Pressure Mean Blood Pressure Mean [Right Arm] 69 Blood Pressure Position Pulse Oximetry 92 Oxygen Delivery Method Room Air Sepsis Recent Fever Within 48 Hours Sepsis New/Unexplained Change in Mental Status Sepsis Action Taken by Half-Way Medications Current Medication List: was personally reviewed by me Laboratory Data Attestation: I reviewed the patient's lab results. 01/13/23 22:14 01/13/23 22:14 Lab Results 01/13/23 01/13/23 01/13/23 Range/Units 22:14 22:14 22:14 WBC 9.74 (4.8-10.8) K/ul RBC 3.63 L (4.20-5.40) M/uL Hgb 11.0 L (12.0-16.0) g/dl Hct 32.9 L (37.0-47.0) % MCV 90.6 (80.0-100.0) fL MCH 30.3 (25.0-34.0) pg MCHC 33.4 (32.0-36.0) g/dL RDW Std Deviation 40.8 (36.4-46.3) fL RDW Coeff of Marco 12.3 (11.5-14.5) % Plt Count 233 (130-400) K/uL MPV 11.1 (9.4-12.4) fL Immature Gran % (Auto) 0.3 % Neut % (Auto) 63.8 % Lymph % (Auto) 29.5 % [place] % (Auto) 5.4 % Eos % (Auto) 0.6 % Baso % (Auto) 0.4 % Neut # (Auto) 6.21 (1.40-6.50) K/uL Lymph # (Auto) 2.87 (1.20-3.40) K/uL [place] # (Auto) 0.53 (0.11-0.59) K/uL Eos # (Auto) 0.06 (0.00-0.50) K/uL Baso # (Auto) 0.04 (0.00-0.20) K/uL Immature Gran # (Auto) 0.03 (0.01-0.20) K/uL PT 11.5 (9.0-12.0) Seconds INR 1.1 (0.9-1.1) APTT 31.6 H (21.0-31.0) Seconds PTT Ratio 1.1 Sodium 134 L (136-145) mmol/L Potassium 3.7 (3.5-5.1) mmol/L Chloride 102 (98-107) mmol/L Carbon Dioxide 26 (21-32) mmol/L Anion Gap 6 (3-11) BUN 17 (6-23) mg/dl Creatinine 1.08 (0.6-1.2) mg/dl Est Cr Clr Drug Dosing Not Reportable Est GFR ( Amer) 67.4 ml/min Est GFR (Non-Af Amer) 58.2 ml/min BUN/Creatinine Ratio 15.7 (10-20) Glucose 98 (70-99(Fasting)) mg/dl Calcium 8.9 (8.6-10.3) mg/dl Magnesium 1.5 L (1.7-2.4) mg/dl Total Bilirubin 0.3 (0.2-1.0) mg/dl AST 11 L (13-39) U/L ALT 8 (7-52) U/L Alkaline Phosphatase 64 (34-104) U/L Troponin I High Sens 12.3 (0-14) pg/ml Total Protein 6.1 (6.0-8.3) gm/dl Albumin 4.3 (3.4-5.0) gm/dl Globulin 1.8 L (2.5-4.0) gm/dl Albumin/Globulin Ratio 2.4 H (0.9-2) 01/14/23 Range/Units 01:19 WBC (4.8-10.8) K/ul RBC (4.20-5.40) M/uL Hgb (12.0-16.0) g/dl Hct (37.0-47.0) % MCV (80.0-100.0) fL MCH (25.0-34.0) pg MCHC (32.0-36.0) g/dL RDW Std Deviation (36.4-46.3) fL RDW Coeff of Marco (11.5-14.5) % Plt Count (130-400) K/uL MPV (9.4-12.4) fL Immature Gran % (Auto) % Neut % (Auto) % Lymph % (Auto) % [place] % (Auto) % Eos % (Auto) % Baso % (Auto) % Neut # (Auto) (1.40-6.50) K/uL Lymph # (Auto) (1.20-3.40) K/uL [place] # (Auto) (0.11-0.59) K/uL Eos # (Auto) (0.00-0.50) K/uL Baso # (Auto) (0.00-0.20) K/uL Immature Gran # (Auto) (0.01-0.20) K/uL PT (9.0-12.0) Seconds INR (0.9-1.1) APTT (21.0-31.0) Seconds PTT Ratio Sodium (136-145) mmol/L Potassium (3.5-5.1) mmol/L Chloride (98-107) mmol/L Carbon Dioxide (21-32) mmol/L Anion Gap (3-11) BUN (6-23) mg/dl Creatinine (0.6-1.2) mg/dl Est Cr Clr Drug Dosing Est GFR ( Amer) ml/min Est GFR (Non-Af Amer) ml/min BUN/Creatinine Ratio (10-20) Glucose (70-99(Fasting)) mg/dl Calcium (8.6-10.3) mg/dl Magnesium (1.7-2.4) mg/dl Total Bilirubin (0.2-1.0) mg/dl AST (13-39) U/L ALT (7-52) U/L Alkaline Phosphatase (34-104) U/L Troponin I High Sens 55.7 H* D (0-14) pg/ml Total Protein (6.0-8.3) gm/dl Albumin (3.4-5.0) gm/dl Globulin (2.5-4.0) gm/dl Albumin/Globulin Ratio (0.9-2) Administered Medications Discontinued Medications Aspirin (Aspirin Chew 324 Mg) 324 mg PO NOW STA Stop: 01/14/23 02:29 Last Admin: 01/14/23 02:58 Dose: 324 mg Documented By: SARA Heparin Sodium (Porcine) (Heparin Sod (Porcine) 1000 Unit/Ml) 4,000 units IV NOW STA Stop: 01/14/23 02:46 Last Admin: 01/14/23 02:58 Dose: 4,000 units Documented By: SARA Co-signed By: THEODORE Sodium Chloride (Nss 1000ml) 500 mls @ 999 mls/hr IV .Q31M ONE Stop: 01/14/23 00:28 Last Infusion: 01/14/23 01:18 Dose: 0 mls/hr Documented By: Admin: 01/14/23 00:12 Dose: 999 mls/hr Documented By: SARA Magnesium Sulfate/Dextrose (Magnesium Sulfate / D5w) 1 gm in 100 mls @ 100 mls/hr IV Q1H BIA Stop: 01/14/23 02:24 Last Infusion: 01/14/23 02:42 Dose: 0 mls/hr Documented By: Admin: 01/14/23 01:37 Dose: 100 mls/hr Documented By: Infusion: 01/14/23 01:30 Dose: 100 mls/hr Documented By: Admin: 01/14/23 00:30 Dose: 100 mls/hr Documented By: SARA Heparin Sodium/Dextrose (Heparin Sodium/Dextrose) 25,000 units in 500 mls @ 15 mls/hr IV .Q24H BIA; Protocol Stop: 02/13/23 02:44 Last Admin: 01/14/23 02:59 Dose: 750 units/hr, 15 mls/hr Documented By: SARA Co-signed By: THEODORE Lorazepam (Lorazepam 1 Mg Tab) 1 mg SL NOW STA Stop: 01/14/23 00:25 Last Admin: 01/14/23 00:29 Dose: 1 mg Documented By: SARA Imaging Data Radiologist's Impression: Chest X-Ray 01/13/23 21:55 SINGLE VIEW CHEST CLINICAL HISTORY: Atypical chest pain FINDINGS: A PA chest radiograph is compared to study dated 05/28/2022. Correlation is made with chest CT dated 05/31/2021. An electronic device projects over the mediastinum. The heart is mildly enlarged noting atherosclerotic calcification of the thoracic aorta. The pulmonary vasculature is noncongested. Mild emphysema and chronic interstitial thickening is somewhat previous. There is bibasilar scarring/atelectasis The lungs and pleural spaces are otherwise clear. No pneumothorax is seen. The skeletal structures are osteopenic. The bony thorax is grossly intact. IMPRESSION: No active disease in the chest. ACT 112: Negative or not required by law. Electronically signed by: Ayo Cruz M.D. 01/13/2023 10:33 PM Discharge Plan Visit Data Chief Complaint: Cardiac Assessment Stated Complaint: CHEST PALPITATIONS ED Provider: Janene Hernandez Patient Disposition: Admitted As Inpatient Discharge Instructions Interventions: ED Discharge Assessment Last Done: 01/14/23 05:25
--- NOTE | 2023-01-14 07:34 | Hospitalist Progress Note ---
Date of Service January 14, 2023 Assessment & Plan (1) Chest pain: Plan: Chest Pain -New onset of chest pressure/pain sensation -Troponin trend: 12.5 --> 55.7 --> 65 --> 59.3. Continue to monitor Troponin levels. -CXR unremarkable. -Initial EKG bradycardic w/ PACs but without any new ST abnormalities. -Chest pain somewhat reproducible but similar feeling to previous NSTEMI from May 2022 -Echocardiogram done today showed mild tricuspid regurgitation otherwise normal -Started on heparin in the ED however less likely CA and heparin held on admission, if trop dramatically rises can place back on heparin. -Resume home Eliquis for anticoagulation. -Patient requires a new loop recorder, her service writer is on service today, will put in Cardiology consult -Monitor on telemetry. Symptomatic Bradycardia -Patient's heart rate ranging in the 40-50s during ED course -She requires a new loop recorder will put in order for Cardiology consult to see when new loop recorder can be placed Paroxysmal A Fib -Hx of atrial fibrillation, loop recorder deactivated and will need a new one. Cardiology consult. -EKG without evidence for atrial fibrillation -Continue home metoprolol and Eliquis. Bradycardia -Patient has had talks about pacer before with cardiology however too young at this point and they were looking to loop recorder to determine how often she was bradycardic. -F/u with outpatient cardiology with Dr. Mai HTN -BP within normal limits in the ED, can continue home losartan, hydrochlorothiazide, amlodipine, metoprolol. If persistently hypotensive may consider holding Amlodipine 5 mg. Tobacco Use -Discussed cessation, patient has made attempts in the past to cut back and expresses interest. -She will follow up with PCP on cessation. Can order nicotine patch while inpatient. Rheumatoid Arthritis -On Oxycodone 10 mg Q8H PRN for pain management, followed by PCP F/E/N/GI: Heart Healthy diet. DVT Prophylaxis: home Eliquis. Code status: Full Dispo: Med/tele (2) PAF (paroxysmal atrial fibrillation): (3) Bradycardia: (4) Benign essential hypertension: (5) Tobacco use: Admission and Anticipated Discharge Date Admission Date: January 14, 2023 Supervising Physician Co-Signing Physician Notes I personally examined the patient and verified ghosh points of history and exam, discussed case, and agree with decision making and plan documented by Dr. Pablo and Erik DENNY. Patient appears fatigued, lungs clear b/l to auscultation, bradycardic rate and rhythm, no acute distress. Troponins peaked and downtrended. No additional events per patient. Cardiology consulted for symptomatic bradycardia. Subjective Patient is a 52 year-old female with a past medical history significant for paroxysmal atrial fibrillation on Eliquis, NSTEMI 05/2022, symptomatic PACs, HTN, HLD, 40 pack-year history of tobacco use, GERD, anxiety, prediabetes presenting with high blood pressure and chest heaviness. On Thursday 01/11, she woke up, sat up on the edge of her bed, and experienced an onset of nausea accompanied with light-headedness/dizziness which she describes as her "head spinning" and not the room spinning. Shortly afterwards she vomited, and she notes that she had a poor appetite which first started the day prior on Friday when she tried having toast but did not tolerate it. Throughout Friday, she continued to lack an appetite and experience spells of light- headedness which she describes was of random onset. She states that although she was not eating, she tried to stay hydrated with water throughout the day. Overall, she estimates about 6 episodes of emesis on Friday. She states that she began to feel better on Friday in terms of her light-headedness and nausea. She was able to tolerate food again and had a peanut butter + jelly sandwich for lunch and for dinner. However, shortly after dinner she began to feel slightly "off" again, but she went to bed to see if rest would help relieve her symptoms. Friday morning, she woke up and was nauseated again with a poor appetite. Around noon, she tried having some chicken noodle soup, which she tolerated. She states that she felt slightly better after having soup. However, shortly after, she began experiencing palpitations and continued to have episodes of palpitations throughout the day. She began checking her blood pressure at home throughout the day and reports that her blood pressure was ranging around 90-100/45-55 with a reported reading as low as 89/43. Around 8 PM that night, she was sitting on her couch watching TV and experienced a sudden episode of hot flash, cold sweats, and a headache. She states that she felt "really warm" and also began to experience more intense palpitations which she describes felt as if her "heart was pounding". She states that shortly after she also began experiencing L-sided chest pressure which she notes felt like something was pushing down on her left chest. She took her blood pressure and reports that it was 175/75. She then dialed 911 and was taken to [facility]. She notes having no history of hot flashes and describes this as a very new occurrence for her. The chest pressure was described as being localized to her L-chest with no radiation to the back, shoulder, or upper extremities. She states that the chest pressure felt similar to her episode of NSTEMI back in May 2022; however, with the current episode the pressure/pain does not spread to her shoulders or upper extremities. She also notes that she did not have hot flashes and cold sweats with her NSTEMI. She reports experiencing another episode of hot flash, headache, and cold sweats again followed by L-chest pressure overnight at the ED but feeling better this morning when seen at 8:00 AM this morning. Review of Systems Review of Systems: As per HPI. Physical Exam Constitutional: Well-appearing and not in any acute distress. Eyes: Pupils are equal and reactive to light and accommodation. Conjunctivae normal. Aniteric sclerae. Extraocular motions are intact. Respiratory: Lungs are clear to auscultation bilaterally. Cardiovascular: Normal S1 and S2. Rate is bradycardic. No murmurs, rubs, or gallops. Radial pulses and posterior tibialis pulse 2+ bilaterally. No cartoid bruits. Gastrointestinal (Abdomen): Normoactive bowel sounds. No abdominal tenderness upon palpation. Skin: Normal skin turgor. No lower extremity edema. Neurologic: Normal mood and affect. Results & Data Results & Data Vital Signs (Past 12 Hours) Vital Signs Temp Pulse Pulse Resp BP BP Pulse Ox 01/14/23 04:20 59 L 01/14/23 04:28 59 L 18 123/47 L 100 01/14/23 02:14 59 L 18 100/54 L 92 01/14/23 00:15 59 L 01/14/23 00:00 46 L 18 138/95 97 01/13/23 21:55 36.8 C 50 L 20 121/64 98 O2 Del Method 01/14/23 04:20 01/14/23 04:28 Room Air 01/14/23 02:14 Room Air 01/14/23 00:15 01/14/23 00:00 Room Air 01/13/23 21:55 Room Air
[2023-01-14] MEDS ORDERED: METOPROLOL SUCC 50MG EXT REL TAB PO SCH (09:00)
[2023-01-14] MEDS ORDERED: amLODIPine BESYLATE 5 MG TAB PO SCH ×2 (09:00→20:00)
[2023-01-14] MEDS ORDERED: APIXABAN 5 MG TABLET PO SCH (09:00)
[2023-01-14] MEDS ORDERED: DOCUSATE SODIUM 100 MG CAP PO SCH (09:00)
[2023-01-14] MEDS ORDERED: ATORVASTATIN 40 MG TAB PO SCH (09:00)
[2023-01-14] MEDS ORDERED: PANTOprazole 40 MG TAB PO SCH (09:00)
[2023-01-14] MEDS ORDERED: hydroCHLOROthiazide 25 MG TAB PO SCH (09:00)
[2023-01-14] MEDS ORDERED: LOSARTAN POTASSIUM 50 MG TAB PO SCH (09:00)
[2023-01-14] MEDS ORDERED: FLUTICASONE/VILANTEROL 200/25MCG 14 PUFFS/INHALER INH SCH (09:00)
--- NOTE | 2023-01-14 13:04 | XCELERA ---
[id number] \\[id number]
[2023-01-14 16:35] LABS: Partial Thromboplastin Ratio 1.2; Partial Thromboplastin Time 34.6 Seconds (21.0-31.0)
--- NOTE | 2023-01-14 17:22 | Discharge Summary ---
Date of Service January 14, 2023 Admission HPI Per Admitting Provider Venessa is a 52 year old female w/ PmHx paroxysmal atrial fibrillation on Eliquis, sympotmatic PACs, HTN, HLD, GERD, anxiety, prediabetes coming in to the ED for a high blood pressure earlier in the day. Patient states that over the weekend she developed nausea and vomiting, fevers, chills, decreased appetite. She was only able to intake some chicken noodle soup but was able to keep well hydrated during that time. Friday she started to feel better however had a sudden episode of palpitations, high pressure to 175/75 when prior to this it was 98/49, as well as lightheadedness. She states she experienced a heaviness in her chest with this that is at times worse with motion. The heaviness she describes as the feeling of something heavy being on top of her chest. She experienced similar feelings when she had her NSTEMI back in May/Jun of this past year. She also has had shortness of breath with movement at times but that has been present since prior cardiac eval. Her nausea has since abated. She has a past history of NSTEMI about 8 or 9 months back, eval at that time showed negative cardiac catheterization. She follows with Dr. Mai in the outpatient setting and had a loop recorder in place however she states she was told recently this past week that her loop recorder was deactivated and needed replacement. She has not yet scheduled for a replacement for this. Patient is a smoker at 1ppd, has tried to quit in the past but unsuccessful with gum and patches. She has been talking about this with her PCP. Denies alcohol or elicit drug use. 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 In the ED blood work remarkable for magnesium 1.5, troponin 12.5 to 55.7. CXR unremarkable. She was given 1mg ativan, 1L NSS, repleted 2gm magnesium, given aspirin 324mg, and started on a heparin drip. Principal Diagnosis Chest Pain Discharge Exam Constitutional: well-appearing, no acute distress HEENT: NCAT, no conjunctival injection CV: regular rhythm, no murmur appreciated, extremities well-perfused, no LE edema Resp: CTABL, no wheezes/rales/rhonchi appreciated, no increased work of breathing GI: soft, nondistended, nontender, BS normoactive MSK: no gross deformities appreciated Skin: warm, dry, no rash appreciated Neuro: alert, oriented, no focal neurologic deficit appreciated Discharge Data Allergies Allergy/AdvReac Type Severity Reaction Status Date / Time No Known Allergies Allergy Verified 12/19/22 09:28 Consultations 01/14/23 02:31 ED Decision to Admit Stat 01/14/23 12:12 Consult Cardiology Routine Hospital Course (1) Chest pain: Chest Pain -New onset of chest pressure/pain sensation; resolved prior to d/c -Troponin trend: 12.5 --> 55.7 --> 65 --> 59.3. -CXR unremarkable. -Initial EKG bradycardic w/ PACs but without any new ST abnormalities. -Chest pain somewhat reproducible but similar feeling to previous NSTEMI from May 2022 -Echocardiogram done today showed mild tricuspid regurgitation otherwise normal -Started on heparin in the ED however less likely SD and heparin held on admission -Resume home Eliquis for anticoagulation. -Monitor was seen by cardiology who felt she was stable to f/u as an outpatient Symptomatic Bradycardia -Patient's heart rate ranging in the 40-50s during ED course -She requires a new loop recorder will f/u with cardiology as an outpatient Paroxysmal A Fib -Hx of atrial fibrillation, loop recorder deactivated and will need a new one. -EKG without evidence for atrial fibrillation -Continue home metoprolol and Eliquis. Bradycardia -Patient has had talks about pacer before with cardiology however too young at this point and they were looking to loop recorder to determine how often she was bradycardic. -F/u with outpatient cardiology with Dr. Mai HTN -B continue home losartan, hydrochlorothiazide, amlodipine, metoprolol Tobacco Use -Discussed cessation, patient has made attempts in the past to cut back and expresses interest. -She will follow up with PCP on cessation. Can order nicotine patch while inpatient. Rheumatoid Arthritis -On Oxycodone 10 mg Q8H PRN for pain management, followed by PCP (2) PAF (paroxysmal atrial fibrillation): (3) Bradycardia: (4) Benign essential hypertension: (5) Tobacco use: Total Time Total Time Spent Total Time Spent (In Minutes): see attending attestation Discharge Plan Discharge Items Patient Disposition: Home - Self-Care Reason For Visit: CHEST PAIN RULE OUT Discharge Diagnosis: Chest Pain Activity: Per Instructions section Non-emergency contact: Primary Care Provider and [facility] Call non-emergency contact if: you have any medication questions and your symptoms worsen Follow-up/Referrals: Priscilla Obregon DO [Primary Care Provider] - Lisandro aMi MD [Physician] - Diet: Regular Addtl Attending Provider Instructions: You were admitted for chest pain. Our concern was that it could have been caused by a cardiac issue. All of your lab results and testing looked ok. The [facility], Dr. Mai, saw you and feels that it would be ok to follow up with there patients as an outpatient since your symptoms have resolved. We did not make any changes to your medications, you should continue to take them as your normally would. If you have any recurrence of your chest pain or dyspnea you should come back for re-evaluation in the ED. Please make an appointment to follow up with your primary care doctor in the next week. Pending Studies at Discharge: No Stand-Alone Forms: My [facility] [email or web address], Smoking Cessation Medications and DC Order Prescriptions: Continued Eliquis 5 mg tablet 5 mg PO BID Qty: 180 3RF atorvastatin 40 mg tablet 40 mg PO QAM Qty: 90 1RF pantoprazole [Protonix] 40 mg tablet,delayed release (DR/EC) 40 mg PO QAM Qty: 90 1RF losartan 100 mg tablet 100 mg PO QAM Qty: 90 3RF amlodipine 5 mg tablet 5 mg PO DAILY Qty: 90 3RF benzonatate 200 mg capsule 200 mg PO TID PRN (Reason: cough) Qty: 30 0RF hydrochlorothiazide 25 mg tablet 25 mg PO QAM melatonin 10 mg tablet 30 mg PO HS PRN (Reason: Sleep) albuterol sulfate 90 mcg/actuation HFA aerosol inhaler 1 inh inhalation QID PRN (Reason: shortness of breath or wheezing) Qty: 8.5 3RF budesonide-formoterol [Symbicort] 160-4.5 mcg/actuation HFA aerosol inhaler 1 inh inhalation BID Qty: 10.2 2RF docusate sodium 100 mg Capsule 100 mg PO BID Qty: 30 0RF oxycodone 10 mg tablet 10 mg PO Q8H PRN (Reason: Pain) metoprolol succinate 50 mg tablet extended release 24 hr 50 mg PO UD Patient Comments: morning daily Rx Instructions: Take 1 tablet by mouth every day and may take an extra dose as needed for breakthrough A-Fib (verified pat call 07/30/22) Discharge Orders: Discharge Order (Routine); Ordered 01/14/23 Ordered By: Gail Pablo Admission Data Admit Date/Time: 01/14/23 03:56 Attending Provider: Nelia Murrieta Admit Provider: Edson Gerardo Primary Care Provider: Priscilla Obregon Other Providers: Melisa Cali ; Lisandro Mai Other Interventions: Discharge Summary Assessment (RN) Last Done: 01/14/23 17:15 Supervising Physician Co-Signing Physician Notes I personally examined the patient and verified ghosh points of history and exam, discussed case, and agree with decision making and plan documented by Dr. Pablo. Patient with resolution of symptoms and was evaluated by cardiology with low suspicion for ACS. Patient has outpatient follow-up scheduled. Resident Activity Tracking Resident Involvement: Resident Care Provided Care Provided: Adult Hospital Medicine
--- NOTE | 2023-01-14 18:34 | Cardiology Consultation ---
Date of Consultation January 14, 2023 Assessment & Plan (1) PAF (paroxysmal atrial fibrillation): (2) Bradycardia: (3) Palpitation: (4) Elevated troponin: Plan 1. Palpitations: She has long history of PACs. He seemed to feel better on metoprolol this medication has been continued despite a element of mild bradycardia. She describes more intense form of palpitations recently. However there is no documentation of any other arrhythmia including during her time in the emergency room. Unfortunately, her loop recorder could not be interrogated today either due to soft whether was not updated in our program are or possibly the device reaching end of life. 2. Elevated troponin: She has mild elevation in her cardiac biomarkers. This is rise after her presentation. Unclear etiology. She has had elevated biomarkers to a greater degree previously. No symptoms suggestive of an acute coronary syndrome. In the past coronary evaluation has been normal in a similar setting. 3. Bradycardia: She has an element of mild bradycardia. She did describe some dizziness and lightheadedness leading up to her admission. This was in the setting of nausea, vomiting and relatively low blood pressures. I do not believe there has been a significant change in her heart rates recently. She has been ambulatory around the emergency room currently without symptoms. I do not believe this necessitates any change in her outpatient medical regimen. 4. Atrial fibrillation: Reportedly paroxysmal. No recent documented episodes. She continues on systemic anticoagulation. History of Present Illness Reason for Consultation: Palpitations, bradycardia Requesting Physician: Glenny Attending Physician: Nelia Murrieta, History of Present Illness The patient is a 52-year-old woman with a long history of paroxysmal atrial fibrillation and palpitations who previously undergone implantation a patient activated loop recorder. She has been evaluated in our clinic previously and was admitted to the hospital in May of this year. At that time she had elevated cardiac biomarkers and underwent coronary angiography which did not reveal any obstructive coronary disease. She presented to the hospital yesterday for symptoms nausea, vomiting, pa lpitations, dizziness and headache. It seems that for several days she had difficulty eating due to nausea and vomiting. She later developed some dizziness that she associated with hypotension. She did take her blood pressure at home and noted relatively low blood pressures. 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 She did report feeling dizzy at that time. This was a fairly constant complaint and did not appear to be positional in nature. No presyncope or syncope. She came to the hospital due to a sense of severe palpitation. This also involves some transient chest discomfort and dyspnea. She was observed in the emergency room. She did report another similar but brief episode of palpitations during her hospitalization. Currently she has her usual palpitations which are fairly frequent PACs. Overall she states this is not terribly bothersome. She has been ambulatory around the emergency room recently without recurrent symptoms. Allergies Allergy/AdvReac Type Severity Reaction Status Date / Time No Known Allergies Allergy Verified 12/19/22 09:28 Home Medications Medication Instructions Recorded Confirmed Type hydrochlorothiazide 25 mg tablet 25 mg PO QAM 05/15/22 01/14/23 History melatonin 10 mg tablet 30 mg PO HS PRN Sleep 05/15/22 01/14/23 History docusate sodium 100 mg capsule 100 mg PO BID #30 caps 05/24/22 01/14/23 Rx oxycodone 10 mg tablet 10 mg PO Q8H PRN Pain 05/28/22 01/14/23 History apixaban 5 mg tablet (Eliquis) 5 mg PO BID #180 tabs 07/02/22 01/14/23 Rx metoprolol succinate 50 mg 50 mg PO UD 07/30/22 01/14/23 History tablet,extended release 24 hr atorvastatin 40 mg tablet 40 mg PO QAM #90 tabs 08/14/22 01/14/23 Rx pantoprazole 40 mg tablet,delayed 40 mg PO QAM #90 tabs 08/14/22 01/14/23 Rx release (Protonix) losartan 100 mg tablet 100 mg PO QAM #90 tabs 10/28/22 01/14/23 Rx amlodipine 5 mg tablet 5 mg PO DAILY #90 tabs 11/14/22 01/14/23 Rx albuterol sulfate 90 mcg/actuation 1 inh inhalation QID PRN shortness 11/15/22 01/14/23 Rx aerosol inhaler of breath or wheezing #8.5 grams budesonide-formoterol HFA 160 1 inh inhalation BID #10.2 grams 11/15/22 01/14/23 Rx mcg-4.5 mcg/actuation aerosol inhaler (Symbicort) benzonatate 200 mg capsule 200 mg PO TID PRN cough #30 caps 12/03/22 01/14/23 Rx Patient History Medical History (Updated 01/14/23 @ 18:31 by Lisandro Mai MD) Anxiety CAD (coronary artery disease) Normal coronaries on Cardiac Catheterization 05/23/22 Constipation GERD (gastroesophageal reflux disease) History of cervical cancer DX 1999/SX INTERVENTION Hyperlipidemia Hypomagnesemia HX / ? CURRENT LEVEL Irritable bowel syndrome NSTEMI (non-ST elevated myocardial infarction) MAY 2022/EVAL [facility]...CATH..NO BLOCKAGES/NO STENTS- PLACED ON MEDICATION PAF (paroxysmal atrial fibrillation) DX 2 YR AGO? / NO HX CARDIOVERSION Pre-diabetes Rheumatoid arthritis Vitamin D deficiency Surgical History History of ankle surgery History of appendectomy History of cardiac cath MAY 2022 ...[place]...NO BLOCKAGES /NO STENT(S) History of colonoscopy History of esophagogastroduodenoscopy (EGD) History of laparoscopy History of total abdominal hysterectomy WITH REMOVAL OF BOTH OVARIES d/t cervical cancer Intestinal adhesions SURGICAL LYSIS OF INTESTINAL ADHESIONS Status post placement of implantable loop recorder (2020) PRESENT Family History Mother Hx of CABG Cardiac disorder Diabetes Hypertension Myocardial infarction Peripheral vascular disease Father Emphysema of lung Brother Throat cancer Denies family history of Ovarian cancer Prostate cancer Breast cancer Colorectal cancer Social History Smoking Status: Current every day smoker Tobacco Type: Cigarettes Age Started Using Tobacco: 12; packs per day: 1; Cigarettes Per Day: 1PPD/ADVISED NPO; Second Hand Exposure: No; Do You Dip or Chew Tobacco: No; Hx Alcohol Use: No Hx Substance Use: No Preferred Language: Sinhala Communication Ability: Effective Visual Impairment: No Limitations Hearing Ability: Normal Transit Mix Operator Required: No Beliefs That Will Affect Care: None marital status: Current Living Situation: Family Current Living Situation Comment: 2 GRANDSONS current occupational status: employed 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 No recent fevers or chills. Physical Exam Physical Exam: She is alert and oriented x3. Mood affect appear normal. She answered all questions appropriately. HEENT: Sclerae are anicteric. Pupils are equal and reactive to light and accommodation. Extraocular movements were intact. Neuro: Cranial nerves intact Lungs: Lungs are clear to auscultation bilaterally. There are no rales wheezes or rhonchi. She has normal respiratory effort without use of accessory muscles. There is normal pulmonary excursion. Cardiac: The rhythm was regular with fairly frequent ectopy. S1 and S2 were normal. There are no murmurs on examination. The PMI was not markedly displaced on palpation. Extremities: Patient has bilateral radial pulses that are equal in intensity. There is no evidence cyanosis or clubbing. There was no evidence of significant peripheral edema bilaterally. Skin: There are no rashes noted on examination today. Results & Data Vital Signs (Past 12 Hours) Vital Signs Temp Pulse Pulse Resp BP Pulse Ox O2 Del Method 01/14/23 17:15 36.8 C 56 L 18 127/67 99 01/14/23 12:30 50 L 18 110/65 100 Room Air 01/14/23 16:29 56 L 18 127/67 99 Room Air 01/14/23 15:11 52 L 01/14/23 11:15 51 L 18 132/47 L 96 Room Air Laboratory Results Abnormal Lab Results 01/13/23 01/13/23 01/13/23 22:14 22:14 22:14 WBC 9.74 RBC 3.63 L Hgb 11.0 L Hct 32.9 L MCV 90.6 MCH 30.3 MCHC 33.4 RDW Std Deviation 40.8 RDW Coeff of Marco 12.3 Plt Count 233 MPV 11.1 Immature Gran % (Auto) 0.3 Neut % (Auto) 63.8 Lymph % (Auto) 29.5 Crane % (Auto) 5.4 Eos % (Auto) 0.6 Baso % (Auto) 0.4 Neut # (Auto) 6.21 Lymph # (Auto) 2.87 Crane # (Auto) 0.53 Eos # (Auto) 0.06 Baso # (Auto) 0.04 Immature Gran # (Auto) 0.03 PT 11.5 INR 1.1 APTT 31.6 H PTT Ratio 1.1 Sodium 134 L Potassium 3.7 Chloride 102 Carbon Dioxide 26 Anion Gap 6 BUN 17 Creatinine 1.08 Est Cr Clr Drug Dosing Not Reportable Est GFR ( Amer) 67.4 Est GFR (Non-Af Amer) 58.2 BUN/Creatinine Ratio 15.7 Glucose 98 Calcium 8.9 Magnesium 1.5 L Total Bilirubin 0.3 AST 11 L ALT 8 Alkaline Phosphatase 64 Troponin I High Sens 12.3 Total Protein 6.1 Albumin 4.3 Globulin 1.8 L Albumin/Globulin Ratio 2.4 H 01/14/23 01/14/23 01/14/23 01:19 05:02 06:47 WBC RBC Hgb Hct MCV MCH MCHC RDW Std Deviation RDW Coeff of Marco Plt Count MPV Immature Gran % (Auto) Neut % (Auto) Lymph % (Auto) Crane % (Auto) Eos % (Auto) Baso % (Auto) Neut # (Auto) Lymph # (Auto) Crane # (Auto) Eos # (Auto) Baso # (Auto) Immature Gran # (Auto) PT INR APTT PTT Ratio Sodium Potassium Chloride Carbon Dioxide Anion Gap BUN Creatinine Est Cr Clr Drug Dosing Est GFR ( Amer) Est GFR (Non-Af Amer) BUN/Creatinine Ratio Glucose Calcium Magnesium Total Bilirubin AST ALT Alkaline Phosphatase Troponin I High Sens 55.7 H* D 65.0 H* 59.3 H* Total Protein Albumin Globulin Albumin/Globulin Ratio 01/14/23 15:39 WBC RBC Hgb Hct MCV MCH MCHC RDW Std Deviation RDW Coeff of Marco Plt Count MPV Immature Gran % (Auto) Neut % (Auto) Lymph % (Auto) Crane % (Auto) Eos % (Auto) Baso % (Auto) Neut # (Auto) Lymph # (Auto) Crane # (Auto) Eos # (Auto) Baso # (Auto) Immature Gran # (Auto) PT INR APTT 34.6 H PTT Ratio 1.2 Sodium Potassium Chloride Carbon Dioxide Anion Gap BUN Creatinine Est Cr Clr Drug Dosing Est GFR ( Amer) Est GFR (Non-Af Amer) BUN/Creatinine Ratio Glucose Calcium Magnesium Total Bilirubin AST ALT Alkaline Phosphatase Troponin I High Sens Total Protein Albumin Globulin Albumin/Globulin Ratio Diagnostic Findings Arteries without coronary artery disease. Normal LV function. Echocardiogram performed 01/14/2023: Normal LV systolic function wall motion. Normal right ventricular pressure. No significant valvular heart disease. PG Care Time/CCT Total # of Minutes Spent Total Time Spent with Patient: Total time spent is greater than 50% in coordination of care (as documented) at patient's floor/unit and/or counseling patient: Coding Level of Care Code 05395 OFFICE CONSULT LVL M Diagnoses PAF (paroxysmal atrial fibrillation) I48.0 Bradycardia R00.1 Palpitation R00.2 Elevated troponin R77.8
--- NOTE | 2023-01-14 18:53 | Electrocardiogram Report ---
Test Reason : Blood Pressure : / mmHG Vent. Rate : 059 BPM Atrial Rate : 049 BPM P-R Int : 134 ms QRS Dur : 078 ms QT Int : 426 ms P-R-T Axes : 053 052 069 degrees QTc Int : 421 ms Sinus bradycardia with Premature atrial complexes Otherwise normal ECG When compared with ECG of 28-MAY-2022 17:21, No significant change was found Confirmed by Lisandro Mai ([id number] on 01/14/2023 6:52:44 PM Referred By: REFERRED SELF Confirmed By:Alexi Mai
--- NOTE | 2023-01-15 13:22 | Electrocardiogram Report ---
Test Reason : Blood Pressure : / mmHG Vent. Rate : 076 BPM Atrial Rate : 076 BPM P-R Int : 128 ms QRS Dur : 070 ms QT Int : 376 ms P-R-T Axes : 063 067 091 degrees QTc Int : 423 ms Sinus rhythm with Premature supraventricular complexes Nonspecific ST and T wave abnormality Abnormal ECG When compared with ECG of 13-JAN-2023 22:12, (unconfirmed) T wave inversion more evident in Anterolateral leads Confirmed by Lisandro Mai ([id number] on 01/15/2023 1:21:54 PM Referred By: REFERRED SELF Confirmed By:Alexi Mai
--- NOTE | 2023-01-15 18:59 | Billing Data ---
Date of Service January 14, 2023 Coding Level of Care Code 30956 INT INP/OBS CARE
== END 2023-01-14 17:37 | disposition home or self-care (01) ==
LOC: EDINP 21:44 → ED 21:44 → SUATTDRO 01-14 03:56 → 2N 01-14 05:25

== ENCOUNTER 2023-07-22 22:10 | Inpatient (IN) ==
[2023-07-22] MEDS: ASPIRIN CHEW 324 MG PO STA (22:52)
[2023-07-22 23:32] LABS: Troponin I High Sensitivity 9.8 pg/ml (0-14)
[2023-07-22 23:36] LABS: Albumin Level 4.2 gm/dl (3.4-5.0); Bilirubin,Total 0.2 mg/dl (0.2-1.0); Calcium 8.9 mg/dl (8.6-10.3); Potassium 3.7 mmol/L (3.5-5.1)
[2023-07-22 23:42] LABS: Albumin Globulin Ratio 1.6 (0.9-2); BUN Creatinine Ratio 17.1 (10-20); Creatinine Clr Calc Pharmacy 53.7 ml/min; Est GFR (African American) 64.7 ml/min; Est GFR (Non-African American) 55.9 ml/min; Globulin 2.7 gm/dl (2.5-4.0); Total Protein 6.9 gm/dl (6.0-8.3)
[2023-07-23 00:21] LABS: Basophils # (auto) 0.03 K/uL (0.00-0.20); Basophils % (auto) 0.3 %; Eosinophils # (auto) 0.04 K/uL (0.00-0.50); Eosinophils % (auto) 0.4 %; Hematocrit (blood only) 31.7 % (37.0-47.0); Hemoglobin 10.7 g/dl (12.0-16.0); Immature Granulocytes # (auto) 0.04 K/uL (0.01-0.20); Immature Granulocytes % (auto) 0.4 %; Lymphocytes # (auto) 2.36 K/uL (1.20-3.40); Lymphocytes % (auto) 22.4 %; Mean Corpuscular Hemoglobin 30.1 pg (25.0-34.0); Mean Corpuscular Hgb Conc 33.8 g/dL (32.0-36.0); Mean Corpuscular Volume 89.3 fL (80.0-100.0); Mean Platelet Volume 10.7 fL (9.4-12.4); Monocytes # (auto) 0.41 K/uL (0.11-0.59); Monocytes % (auto) 3.9 %; Neutrophils # (auto) 7.66 K/uL (1.40-6.50); Neutrophils % (auto) 72.6 %; Platelet Count 249 K/uL (130-400); RDW Coefficient of Variation 12.8 % (11.5-14.5); RDW Standard Deviation 42.1 fL (36.4-46.3); Red Blood Count 3.55 M/uL (4.20-5.40); White Blood Count 10.54 K/ul (4.8-10.8)
--- NOTE | 2023-07-23 00:43 | Emergency Department Note ---
History of Present Illness General Chief Complaint: Chest Pain Stated Complaint: CHEST PAIN, CARDIAC ASSESSMENT Time Seen by Provider: 07/22/23 22:46 History of Present Illness Provider Complaint: chest pain Time: 21:00 Duration: now resolved Onset: during rest Pain Location: substernal Pain Radiation: none Severity: moderate Current Pain Intensity: 0 Quality: + heaviness (Pressure) Relieved By: + nothing Exacerbated By: + nothing Context: no recent illness, no recent surgery, no recent immobilization, no recent travel, no trauma/injury, no new medications or no history of DVT/PE Associated symptoms: no nausea, no vomiting, no diaphoresis, no dyspnea, no syncope, no palpitations, no fever, no cough or no leg swelling Home Medications Medication Instructions Recorded Confirmed Type melatonin 10 mg tablet 30 mg PO HS PRN Sleep 05/15/22 07/22/23 History docusate sodium 100 mg capsule 100 mg PO BID #30 caps 05/24/22 07/22/23 Rx oxycodone 10 mg tablet 10 mg PO Q8H PRN Pain 05/28/22 07/22/23 History apixaban 5 mg tablet (Eliquis) 5 mg PO BID #180 tabs 07/02/22 07/22/23 Rx losartan 100 mg tablet 100 mg PO QAM #90 tabs 10/28/22 07/22/23 Rx amlodipine 5 mg tablet 5 mg PO DAILY #90 tabs 11/14/22 07/22/23 Rx albuterol sulfate 90 mcg/actuation 1 inh inhalation QID PRN shortness 11/15/22 07/22/23 Rx aerosol inhaler of breath or wheezing #8.5 grams budesonide-formoterol HFA 160 1 inh inhalation BID #10.2 grams 11/15/22 07/22/23 Rx mcg-4.5 mcg/actuation aerosol inhaler (Symbicort) atorvastatin 40 mg tablet 40 mg PO QAM #90 tabs 02/07/23 07/22/23 Rx pantoprazole 40 mg tablet,delayed 40 mg PO QAM #90 tabs 02/07/23 07/22/23 Rx release (Protonix) hydrochlorothiazide 25 mg tablet 25 mg PO QAM #90 tabs 04/29/23 07/22/23 Rx famotidine 40 mg tablet (Pepcid) 40 mg PO BID #60 tabs 07/22/23 07/22/23 Rx metoprolol succinate 50 mg 50 mg PO DAILY 07/22/23 07/22/23 History tablet,extended release 24 hr prednisone 10 mg tablet See Rx Instructions PO DAILY #20 07/22/23 07/22/23 Rx tabs Allergies Allergy/AdvReac Type Severity Reaction Status Date / Time No Known Allergies Allergy Verified 07/22/23 22:49 Past Med/Surg History Medical History History of cervical cancer DX 1999/SX INTERVENTION Chest pain Constipation Hypomagnesemia HX / ? CURRENT LEVEL NSTEMI (non-ST elevated myocardial infarction) MAY 2022/EVAL [facility]...CATH..NO BLOCKAGES/NO STENTS- PLACED ON MEDICATION PAF (paroxysmal atrial fibrillation) DX 2 YR AGO? / NO HX CARDIOVERSION Pre-diabetes Rheumatoid arthritis CAD (coronary artery disease) Normal coronaries on Cardiac Catheterization 05/23/22 Vitamin D deficiency Irritable bowel syndrome Hyperlipidemia GERD (gastroesophageal reflux disease) Anxiety Surgical History History of esophagogastroduodenoscopy (EGD) History of colonoscopy History of cardiac cath MAY 2022 ...[place]...NO BLOCKAGES /NO STENT(S) Status post placement of implantable loop recorder (2020) PRESENT History of total abdominal hysterectomy WITH REMOVAL OF BOTH OVARIES d/t cervical cancer Intestinal adhesions SURGICAL LYSIS OF INTESTINAL ADHESIONS History of laparoscopy History of appendectomy History of ankle surgery Family History Mother Hx of CABG Cardiac disorder Diabetes Hypertension Myocardial infarction Peripheral vascular disease Father Emphysema of lung Brother Throat cancer Denies family history of Ovarian cancer Prostate cancer Breast cancer Colorectal cancer Social History Smoking Status: Current every day smoker Tobacco Type: Cigarettes Age Started Using Tobacco: 12; packs per day: 1; Cigarettes Per Day: 1PPD/ADVISED NPO; Second Hand Exposure: No; Do You Dip or Chew Tobacco: No; Hx Alcohol Use: No Hx Substance Use: No Preferred Language: [place] Communication Ability: Effective Visual Impairment: No Limitations Hearing Ability: Normal Residence Hall Director Required: No Beliefs That Will Affect Care: None marital status: Current Living Situation: Family Current Living Situation Comment: 2 GRANDSONS current occupational status: employed 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 Feels Safe at Home: Yes Childhood Exposure to Second-Hand Smoke: No Diet Comment: patient has dentures caffeine: Yes (Soda x 3 per day.) during the past year weight has: increased > 10 lbs Dental Care, Regularly: No Physical Activity Frequency: Daily Seatbelt Use: always Sunscreen Use: No Assistive Devices: Glasses Physical Exam Vital Signs Vital Signs - 24 hr 07/22/23 22:24 07/22/23 22:24 07/22/23 22:24 Temperature 36.9 C Temperature Source Oral Pulse Rate 62 Pulse Rate [Apical] 62 Respiratory Rate 17 17 Respiratory Effort / Characteristics Respiratory Depth Respiratory Pattern Blood Pressure 124/62 Blood Pressure [Right Arm] 124/62 Blood Pressure Mean 82 Blood Pressure Mean [Right Arm] 82 Pulse Oximetry 96 97 97 Oxygen Delivery Method Room Air Room Air Room Air Sepsis Recent Fever Within 48 Hours No Sepsis New/Unexplained Change in Mental Status No Sepsis Action Taken by Nursing No Action Required 07/22/23 22:29 07/22/23 22:50 07/22/23 22:50 Temperature Temperature Source Pulse Rate 61 72 Pulse Rate [Apical] Respiratory Rate 18 Respiratory Effort / Characteristics Respiratory Depth Respiratory Pattern Blood Pressure Blood Pressure [Right Arm] Blood Pressure Mean Blood Pressure Mean [Right Arm] Pulse Oximetry 98 98 Oxygen Delivery Method Room Air Room Air Sepsis Recent Fever Within 48 Hours Sepsis New/Unexplained Change in Mental Status Sepsis Action Taken by Nursing 07/23/23 00:00 Temperature Temperature Source Pulse Rate Pulse Rate [Apical] 59 L Respiratory Rate 15 Respiratory Effort / Characteristics Non-Labored Respiratory Depth Normal Respiratory Pattern Regular Blood Pressure Blood Pressure [Right Arm] 108/52 L Blood Pressure Mean Blood Pressure Mean [Right Arm] 70 Pulse Oximetry 97 Oxygen Delivery Method Room Air Sepsis Recent Fever Within 48 Hours Sepsis New/Unexplained Change in Mental Status Sepsis Action Taken by Nursing Physical Exam GENERAL: oriented to person, place, and time. appears well-developed and well- nourished. HENT: Exam performed. - Head: Normocephalic and atraumatic. EYES: Conjunctivae and EOM are normal. Right eye exhibits no discharge. Left eye exhibits no discharge. No scleral icterus. NECK: Normal range of motion. Neck supple. No JVD present. CV: Normal rate, regular rhythm, normal heart sounds and intact distal pulses. There is no peripheral edema. Palpable radial pulses bue. PULM/CHEST: Effort normal and breath sounds normal. No respiratory distress. No stridor. no wheezes. no rales. ABD: The abdomen is soft. There is no tenderness. NEURO: Motor and sensation grossly intact. SKIN: Skin is warm and dry. He is not diaphoretic. PSYCH: normal mood and affect. Behavior is normal. Judgment and thought content normal. Course Course 2245: The patient was evaluated in room C7. A complete history and physical exam was performed Cardiac monitoring: An order was placed for continuous cardiac monitoring. The monitor shows a rate of 60 with sinus rhythm interpreted by me 0039: Vital signs stable. Labs and imaging within normal limits. Moderate HEART score. Patient will be admitted for chest pain rule out ACS. Dr. Cali's team notified. HEART Score for Major Cardiac Events from [employer] on 07/23/2023 All calculations should be rechecked by clinician prior to use RESULT SUMMARY: 4 points Moderate Score (4-6 points) Risk of MACE of 12-16.6%. INPUTS: History > 1 = Moderately suspicious EKG > 0 = Normal Age > 1 = 45-64 Risk factors > 2 = >= risk factors or history of atherosclerotic disease Initial troponin > 0 = <=ormal limit Administered Medications Discontinued Medications Aspirin (Aspirin Chew 324 Mg) 324 mg PO NOW STA Stop: 07/22/23 22:48 Last Admin: 07/22/23 22:52 Dose: Not Given Documented By: MAURY Medical Decision Making Laboratory Data Attestation: I reviewed the patient's lab results. 07/23/23 00:02 07/22/23 22:40 Labs: Lab Results 07/22/23 07/23/23 Range/Units 22:40 00:02 WBC Cancelled 10.54 RBC Cancelled 3.55 L Hgb Cancelled 10.7 L Hct Cancelled 31.7 L MCV Cancelled 89.3 MCH Cancelled 30.1 MCHC Cancelled 33.8 RDW Std Deviation Cancelled 42.1 RDW Coeff of Marco Cancelled 12.8 Plt Count Cancelled 249 MPV Cancelled 10.7 Immature Gran % (Auto) Cancelled 0.4 Neut % (Auto) Cancelled 72.6 Lymph % (Auto) Cancelled 22.4 [place] % (Auto) Cancelled 3.9 Eos % (Auto) Cancelled 0.4 Baso % (Auto) Cancelled 0.3 Neut # (Auto) Cancelled 7.66 H Lymph # (Auto) Cancelled 2.36 [place] # (Auto) Cancelled 0.41 Eos # (Auto) Cancelled 0.04 Baso # (Auto) Cancelled 0.03 Immature Gran # (Auto) Cancelled 0.04 Absolute Nucleated RBC Cancelled Nucleated RBC % (auto) Cancelled Neutrophils % (Manual) Cancelled Band Neutrophils % Cancelled Lymphocytes % (Manual) Cancelled Prolymphocyte % Cancelled Reactive Lymphs % (Man) Cancelled Monocytes % (Manual) Cancelled Eosinophils % (Manual) Cancelled Basophils % (Manual) Cancelled Metamyelocytes % (Man) Cancelled Myelocytes % (Man) Cancelled Promyelocytes % (Man) Cancelled Blast Cells % (Manual) Cancelled Plasma Cell % (Manual) Cancelled Other Cells % Cancelled Nucleated RBC % Cancelled Neutrophils # (Manual) Cancelled Band Neutrophils # Cancelled Total Absolute Neuts Cancelled Lymphocytes # (Manual) Cancelled Prolymphocyte # Cancelled Reactive Lymphs # Cancelled Total Abs Lymphocytes Cancelled Monocytes # (Manual) Cancelled Eosinophils # (Manual) Cancelled Basophils # (Manual) Cancelled Metamyelocytes # (Man) Cancelled Myelocytes # (Manual) Cancelled Promyelocytes # (Man) Cancelled Blast Cells # (Man) Cancelled Plasma Cell # (Manual) Cancelled Other Cells # Cancelled Nucleated RBCs # (Man) Cancelled Hypersegmented Neuts Cancelled Hyposegmented Neuts Cancelled Hypogranular Neuts Cancelled Large Granular Lymphs Cancelled # Lrg Granular Lymphs Cancelled Hairy Cells Cancelled Smudge Cells Cancelled Toxic Granulation Cancelled Toxic Vacuolation Cancelled Dohle Bodies Cancelled Ondina Rods Cancelled Platelet Estimate Cancelled Hypogranular Platelets Cancelled Giant Platelets Cancelled Platelet Satelliting Cancelled RBC Morphology Cancelled Polychromasia Cancelled Hypochromasia Cancelled Poikilocytosis Cancelled Basophilic Stippling Cancelled Anisocytosis Cancelled Microcytosis Cancelled Macrocytosis Cancelled Spherocytes Cancelled Pappenheimer Bodies Cancelled Sickle Cells Cancelled Target Cells Cancelled Tear Drop Cells Cancelled Ovalocytes Cancelled Stomatocytes Cancelled [place] Bodies Cancelled Echinocytes Cancelled Acanthocytes (Spur) Cancelled Rouleaux Cancelled RBC Agglutinates Cancelled Schistocytes Cancelled Sezary Cell Cancelled Sodium 136 (136-145) mmol/L Potassium 3.7 (3.5-5.1) mmol/L Chloride 105 (98-107) mmol/L Carbon Dioxide 22 (21-32) mmol/L Anion Gap 9 (3-11) BUN 19 (6-23) mg/dl Creatinine 1.11 (0.6-1.2) mg/dl Est Cr Clr Drug Dosing 53.7 ml/min Est GFR ( Amer) 64.7 ml/min Est GFR (Non-Af Amer) 55.9 ml/min BUN/Creatinine Ratio 17.1 (10-20) Glucose 107 H (70-99(Fasting)) mg/dl Calcium 8.9 (8.6-10.3) mg/dl Total Bilirubin 0.2 (0.2-1.0) mg/dl AST 10 L (13-39) U/L ALT 8 (7-52) U/L Alkaline Phosphatase 67 (34-104) U/L Troponin I High Sens 9.8 (0-14) pg/ml Total Protein 6.9 (6.0-8.3) gm/dl Albumin 4.2 (3.4-5.0) gm/dl Globulin 2.7 (2.5-4.0) gm/dl Albumin/Globulin Ratio 1.6 (0.9-2) Lipase 11 (11-82) U/L Blood Parasites ID Cancelled Imaging Data Chest x-ray: Attestation: I personally reviewed and interpreted this imaging study as follows: My impression: Chest x-ray negative. Airway clear. No pneumothorax. No consolidation. No cardiomegaly or cephalization.. No free air under the diaphragm. No fractures of the skeletal structures. ECG Data Attestation: I personally reviewed and interpreted this ECG as follows: Indication: chest pain Rate (beats per minute): 67 Rhythm: normal sinus Findings: no ST depression, no ST elevation or no prolonged QT [facility] Narrative 2246: The patient was evaluated in room C7. A complete history and physical exam was performed Cardiac monitoring: An order was placed for continuous cardiac monitoring. The monitor shows a rate of 60 with sinus rhythm interpreted by me 0039: Vital signs stable. Labs and imaging within normal limits. Moderate HEART score. Patient will be admitted for chest pain rule out ACS. Dr. Cali's team notified. HEART Score for Major Cardiac Events from [employer] on 07/23/2023 All calculations should be rechecked by clinician prior to use RESULT SUMMARY: 4 points Moderate Score (4-6 points) Risk of MACE of 12-16.6%. INPUTS: History > 1 = Moderately suspicious EKG > 0 = Normal Age > 1 = 45-64 Risk factors > 2 = >= risk factors or history of atherosclerotic disease Initial troponin > 0 = <=ormal limit Impression & Plan Chest pain Discharge Plan Visit Data Chief Complaint: Chest Pain Stated Complaint: CHEST PAIN, CARDIAC ASSESSMENT ED Provider: Andrew Stock Discharge Problem: Chest pain Patient Disposition: Being Evaluated by Hospitalist Forms Stand Alone Forms: [facility] [place] [employer] Prescriptions Prescriptions: No Action Eliquis 5 mg tablet 5 mg PO BID Qty: 180 3RF losartan 100 mg tablet 100 mg PO QAM Qty: 90 3RF amlodipine 5 mg tablet 5 mg PO DAILY Qty: 90 3RF pantoprazole [Protonix] 40 mg tablet,delayed release (DR/EC) 40 mg PO QAM Qty: 90 1RF atorvastatin 40 mg tablet 40 mg PO QAM Qty: 90 1RF melatonin 10 mg tablet 30 mg PO HS PRN (Reason: Sleep) albuterol sulfate 90 mcg/actuation HFA aerosol inhaler 1 inh inhalation QID PRN (Reason: shortness of breath or wheezing) Qty: 8.5 3RF budesonide-formoterol [Symbicort] 160-4.5 mcg/actuation HFA aerosol inhaler 1 inh inhalation BID Qty: 10.2 2RF hydrochlorothiazide 25 mg tablet 25 mg PO QAM Qty: 90 3RF famotidine [Pepcid] 40 mg tablet 40 mg PO BID Qty: 60 2RF Rx Instructions: PER PT "DID NOT NUTRITIONAL CHEMIST FROM PHARMACY YET". prednisone 10 mg tablet See Rx Instructions PO DAILY Qty: 20 0RF Rx Instructions: PER PT "DID NOT NUTRITIONAL CHEMIST FROM PHARMACY YET", ORDERED 07/22/23. orally daily; 40 mg x3 days, 20 mg x3 days, 10 mg x2 days docusate sodium 100 mg Capsule 100 mg PO BID Qty: 30 0RF oxycodone 10 mg tablet 10 mg PO Q8H PRN (Reason: Pain) metoprolol succinate 50 mg tablet extended release 24 hr 50 mg PO DAILY Rx Instructions: Take 1 tablet by mouth every day and may take an extra dose as needed for breakthrough A-Fib (verified pat call 07/30/22) Referrals Referrals: Priscilla Obregon DO [Primary Care Provider] - Discharge Problem: Chest pain Qualifiers: Chest pain type: unspecified Qualified Code(s): R07.9 - Chest pain, unspecified
[2023-07-23 01:00] LABS: Partial Thromboplastin Ratio 1.1; Partial Thromboplastin Time 31 Seconds (21-31); Prothrombin Time 11.2 Seconds (9.0-12.0)
--- NOTE | 2023-07-23 01:30 | History & Physical Report ---
Date of Service July 23, 2023 Assessment & Plan (1) Shaking: Plan: 53yo female presenting with episodes of shaking ongoing x 2 days. Patient can feel the episodes start with redness and flushing of her face and neck followed by full body shaking, elevated HR and blood pressure and diaphoresis. Unclear etiology at this time. Differential to include anxiety/panic attacks, seizures, hypoglycemia. Possible rigors although she denies other evidence of infection and laboratory workup does not strongly support infection. Possible carcinoid syndrome with flushing although this condition is fairly uncommon. -Observation to medical with telemetry -Monitor for recurrent episode of shaking -Check EEG for possible seizure focus -Check blood cultures x 2 sets -If persistent episodes with no etiology identified would consider urine 5HIAA testing and abdominal imaging for possible carcinoid tumor (2) Elevated troponin: Plan: Patient with history of CAD. She reports some chest heaviness occurring with episodes of shaking. Troponin has increased on repeat 9,8 --> 17.3. No acute EKG changes -Continue to trend troponin -Telemetry monitoring -Continue Metoprolol, Atorvastatin and Losartan (3) GERD (gastroesophageal reflux disease): Plan: Chronic. Stable -Continue home Protonix 40mg po BID -Will not continue Pepcid - was just prescribed today and patient has not yet taken (4) PAF (paroxysmal atrial fibrillation): Plan: Presently in sinus bradycardia at 59bpm, anticoagulated on Apixaban -Continue Apixaban -Continue Metoprolol (5) Benign essential hypertension: Plan: Blood pressure borderline low at present at 108/52 -Continue home medications Metoprolol, Amlodipine, Losartan and HCTZ with holding parameters -Continue to monitor History of Present Illness Chief Complaint: shaking episodes Primary Care Provider: DO Venessa Flanagan Kenisha is a 53yo female with history of CAD, HLP, GERD, RA and PAF presenting from home with episodes of shaking. Patient reports that yesterday she had an abrupt episode of full body shaking. She reports first feeling warm and flushed in her face and neck followed by shaking of her arms and legs and tight clenching of her mouth and diaphoresis. She had some chest palpitations as well as chest tightness and elevated blood pressure during this episode. Symptoms lasted several moments then resolved spontaneously. This evening around 21:00 she had another episode as before. She had some warm, flushing sensation of her face and neck followed by full body shaking, palpitations and chest heaviness as well as diaphoresis. EMS was called. She was given "a shot of something" in the ambulance and her shaking resolved. Patient additionally reports having bifrontal headaches this week which is unusual for her. She has also had some dizziness and some pain under her left breast and into her back. She has stable SOB at baseline which is unchanged. Otherwise she denies fever, chills, cough, abdominal pain, nausea, vomiting, diarrhea, constipation, dysuria, hematuria, rash, joint pain. She denies syncope or LOC, confusion No recent illness or travel. No medication changes - she was prescribed Prednisone and Famotidine for this current complaint but did not yet fill the prescriptions. In the ER she is afebrile, HD stable ER Course: ASA 324mg Allergies Allergy/AdvReac Type Severity Reaction Status Date / Time No Known Allergies Allergy Verified 07/22/23 22:49 Home Medications Medication Instructions Recorded Confirmed Type melatonin 10 mg tablet 30 mg PO HS PRN Sleep 05/15/22 07/22/23 History docusate sodium 100 mg capsule 100 mg PO BID #30 caps 05/24/22 07/22/23 Rx oxycodone 10 mg tablet 10 mg PO Q8H PRN Pain 05/28/22 07/22/23 History apixaban 5 mg tablet (Eliquis) 5 mg PO BID #180 tabs 07/02/22 07/22/23 Rx losartan 100 mg tablet 100 mg PO QAM #90 tabs 10/28/22 07/22/23 Rx amlodipine 5 mg tablet 5 mg PO DAILY #90 tabs 11/14/22 07/22/23 Rx albuterol sulfate 90 mcg/actuation 1 inh inhalation QID PRN shortness 11/15/22 07/22/23 Rx aerosol inhaler of breath or wheezing #8.5 grams budesonide-formoterol HFA 160 1 inh inhalation BID #10.2 grams 11/15/22 07/22/23 Rx mcg-4.5 mcg/actuation aerosol inhaler (Symbicort) atorvastatin 40 mg tablet 40 mg PO QAM #90 tabs 02/07/23 07/22/23 Rx pantoprazole 40 mg tablet,delayed 40 mg PO QAM #90 tabs 02/07/23 07/22/23 Rx release (Protonix) hydrochlorothiazide 25 mg tablet 25 mg PO QAM #90 tabs 04/29/23 07/22/23 Rx famotidine 40 mg tablet (Pepcid) 40 mg PO BID #60 tabs 07/22/23 07/22/23 Rx metoprolol succinate 50 mg 50 mg PO DAILY 07/22/23 07/22/23 History tablet,extended release 24 hr prednisone 10 mg tablet See Rx Instructions PO DAILY #20 07/22/23 07/22/23 Rx tabs Past Med/Surg History Medical History (Updated 07/23/23 @ 01:49 by Melisa Cali DO) History of cervical cancer DX 1999/SX INTERVENTION Constipation Hypomagnesemia HX / ? CURRENT LEVEL NSTEMI (non-ST elevated myocardial infarction) MAY 2022/EVAL [facility]...CATH..NO BLOCKAGES/NO STENTS- PLACED ON MEDICATION PAF (paroxysmal atrial fibrillation) DX 2 YR AGO? / NO HX CARDIOVERSION Pre-diabetes Rheumatoid arthritis CAD (coronary artery disease) Normal coronaries on Cardiac Catheterization 05/23/22 Vitamin D deficiency Irritable bowel syndrome Hyperlipidemia GERD (gastroesophageal reflux disease) Anxiety Surgical History History of esophagogastroduodenoscopy (EGD) History of colonoscopy History of cardiac cath MAY 2022 ...[place]...NO BLOCKAGES /NO STENT(S) Status post placement of implantable loop recorder (2020) PRESENT History of total abdominal hysterectomy WITH REMOVAL OF BOTH OVARIES d/t cervical cancer Intestinal adhesions SURGICAL LYSIS OF INTESTINAL ADHESIONS History of laparoscopy History of appendectomy History of ankle surgery Family History Mother Hx of CABG Cardiac disorder Diabetes Hypertension Myocardial infarction Peripheral vascular disease Father Emphysema of lung Brother Throat cancer Denies family history of Ovarian cancer Prostate cancer Breast cancer Colorectal cancer Social History Smoking Status: Current every day smoker Tobacco Type: Cigarettes Age Started Using Tobacco: 12; packs per day: 1; Cigarettes Per Day: 1PPD/ADVISED NPO; Second Hand Exposure: No; Do You Dip or Chew Tobacco: No; Hx Alcohol Use: No Hx Substance Use: No Preferred Language: Frisian Communication Ability: Effective Visual Impairment: No Limitations Hearing Ability: Normal Swatcher Required: No Beliefs That Will Affect Care: None marital status: Current Living Situation: Family Current Living Situation Comment: 2 GRANDSONS current occupational status: employed 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 Feels Safe at Home: Yes Childhood Exposure to Second-Hand Smoke: No Diet Comment: patient has dentures caffeine: Yes (Soda x 3 per day.) during the past year weight has: increased > 10 lbs Dental Care, Regularly: No Physical Activity Frequency: Daily Seatbelt Use: always Sunscreen Use: No Assistive Devices: Glasses Review of Systems Review of Systems: All systems reviewed & are unremarkable except as noted in HPI & below Physical Exam Physical Exam: General: patient resting comfortably, NAD, non-toxic in appearance, AA&O x 4 Skin: warm, dry, intact, no rashes or lesions HEENT: NC/AT, PERRL, EOMI, anicteric sclera, conjunctiva without injection, external ear normal to inspection and nontender, nares patent, moist mucus membranes, dentition intact, no oropharyngeal lesions, neck supple, trachea midline, no LAD, no thyromegaly, no JVD Heart: +S1/S2, regular, no m/r/g Lungs: equal air entry bilaterally, no rales/rhonchi/wheezes Abd: +BS, soft, NT/ND, no masses/organomegaly/ascites Ext: warm, 2+ pulses in UE/LE bilaterally, no clubbing/cyanosis or edema Neuro: nonfocal, patient AA&O x 4, speech intact, no facial droop, moving all extremities on command with equal strength 5/5 Results & Data Results & Data Vital Signs (Past 12 Hours) Vital Signs Temp Pulse Pulse Resp BP BP Pulse Ox 07/23/23 00:00 59 L 15 108/52 L 97 07/22/23 22:50 72 18 98 07/22/23 22:50 98 07/22/23 22:29 61 07/22/23 22:24 62 17 124/62 97 07/22/23 22:24 97 07/22/23 22:24 36.9 C 62 17 124/62 96 O2 Del Method 07/23/23 00:00 Room Air 07/22/23 22:50 Room Air 07/22/23 22:50 Room Air 07/22/23 22:29 07/22/23 22:24 Room Air 07/22/23 22:24 Room Air 07/22/23 22:24 Room Air Laboratory Results Laboratory Results WBC 10.54 K/ul (4.8-10.8) 07/23/23 00:02 RBC 3.55 M/uL (4.20-5.40) L 07/23/23 00:02 Hgb 10.7 g/dl (12.0-16.0) L 07/23/23 00:02 Hct 31.7 % (37.0-47.0) L 07/23/23 00:02 MCV 89.3 fL (80.0-100.0) 07/23/23 00:02 MCH 30.1 pg (25.0-34.0) 07/23/23 00:02 MCHC 33.8 g/dL (32.0-36.0) 07/23/23 00:02 RDW Std Deviation 42.1 fL (36.4-46.3) 07/23/23 00:02 RDW Coeff of Marco 12.8 % (11.5-14.5) 07/23/23 00:02 Plt Count 249 K/uL (130-400) 07/23/23 00:02 MPV 10.7 fL (9.4-12.4) 07/23/23 00:02 Immature Gran % (Auto) 0.4 % 07/23/23 00:02 Neut % (Auto) 72.6 % 07/23/23 00:02 Lymph % (Auto) 22.4 % 07/23/23 00:02 [place] % (Auto) 3.9 % 07/23/23 00:02 Eos % (Auto) 0.4 % 07/23/23 00:02 Baso % (Auto) 0.3 % 07/23/23 00:02 Neut # (Auto) 7.66 K/uL (1.40-6.50) H 07/23/23 00:02 Lymph # (Auto) 2.36 K/uL (1.20-3.40) 07/23/23 00:02 [place] # (Auto) 0.41 K/uL (0.11-0.59) 07/23/23 00:02 Eos # (Auto) 0.04 K/uL (0.00-0.50) 07/23/23 00:02 Baso # (Auto) 0.03 K/uL (0.00-0.20) 07/23/23 00:02 Immature Gran # (Auto) 0.04 K/uL (0.01-0.20) 07/23/23 00:02 Absolute Nucleated RBC Cancelled 07/22/23 22:40 Nucleated RBC % (auto) Cancelled 07/22/23 22:40 Neutrophils % (Manual) Cancelled 07/22/23 22:40 Band Neutrophils % Cancelled 07/22/23 22:40 Lymphocytes % (Manual) Cancelled 07/22/23 22:40 Prolymphocyte % Cancelled 07/22/23 22:40 Reactive Lymphs % (Man) Cancelled 07/22/23 22:40 Monocytes % (Manual) Cancelled 07/22/23 22:40 Eosinophils % (Manual) Cancelled 07/22/23 22:40 Basophils % (Manual) Cancelled 07/22/23 22:40 Metamyelocytes % (Man) Cancelled 07/22/23 22:40 Myelocytes % (Man) Cancelled 07/22/23 22:40 Promyelocytes % (Man) Cancelled 07/22/23 22:40 Blast Cells % (Manual) Cancelled 07/22/23 22:40 Plasma Cell % (Manual) Cancelled 07/22/23 22:40 Other Cells % Cancelled 07/22/23 22:40 Nucleated RBC % Cancelled 07/22/23 22:40 Neutrophils # (Manual) Cancelled 07/22/23 22:40 Band Neutrophils # Cancelled 07/22/23 22:40 Total Absolute Neuts Cancelled 07/22/23 22:40 Lymphocytes # (Manual) Cancelled 07/22/23 22:40 Prolymphocyte # Cancelled 07/22/23 22:40 Reactive Lymphs # Cancelled 07/22/23 22:40 Total Abs Lymphocytes Cancelled 07/22/23 22:40 Monocytes # (Manual) Cancelled 07/22/23 22:40 Eosinophils # (Manual) Cancelled 07/22/23 22:40 Basophils # (Manual) Cancelled 07/22/23 22:40 Metamyelocytes # (Man) Cancelled 07/22/23 22:40 Myelocytes # (Manual) Cancelled 07/22/23 22:40 Promyelocytes # (Man) Cancelled 07/22/23 22:40 Blast Cells # (Man) Cancelled 07/22/23 22:40 Plasma Cell # (Manual) Cancelled 07/22/23 22:40 Other Cells # Cancelled 07/22/23 22:40 Nucleated RBCs # (Man) Cancelled 07/22/23 22:40 Hypersegmented Neuts Cancelled 07/22/23 22:40 Hyposegmented Neuts Cancelled 07/22/23 22:40 Hypogranular Neuts Cancelled 07/22/23 22:40 Large Granular Lymphs Cancelled 07/22/23 22:40 # Lrg Granular Lymphs Cancelled 07/22/23 22:40 Hairy Cells Cancelled 07/22/23 22:40 Smudge Cells Cancelled 07/22/23 22:40 Toxic Granulation Cancelled 07/22/23 22:40 Toxic Vacuolation Cancelled 07/22/23 22:40 Dohle Bodies Cancelled 07/22/23 22:40 Ondina Rods Cancelled 07/22/23 22:40 Platelet Estimate Cancelled 07/22/23 22:40 Hypogranular Platelets Cancelled 07/22/23 22:40 Giant Platelets Cancelled 07/22/23 22:40 Platelet Satelliting Cancelled 07/22/23 22:40 RBC Morphology Cancelled 07/22/23 22:40 Polychromasia Cancelled 07/22/23 22:40 Hypochromasia Cancelled 07/22/23 22:40 Poikilocytosis Cancelled 07/22/23 22:40 Basophilic Stippling Cancelled 07/22/23 22:40 Anisocytosis Cancelled 07/22/23 22:40 Microcytosis Cancelled 07/22/23 22:40 Macrocytosis Cancelled 07/22/23 22:40 Spherocytes Cancelled 07/22/23 22:40 Pappenheimer Bodies Cancelled 07/22/23 22:40 Sickle Cells Cancelled 07/22/23 22:40 Target Cells Cancelled 07/22/23 22:40 Tear Drop Cells Cancelled 07/22/23 22:40 Ovalocytes Cancelled 07/22/23 22:40 Stomatocytes Cancelled 07/22/23 22:40 [place] Bodies Cancelled 07/22/23 22:40 Echinocytes Cancelled 07/22/23 22:40 Acanthocytes (Spur) Cancelled 07/22/23 22:40 Rouleaux Cancelled 07/22/23 22:40 RBC Agglutinates Cancelled 07/22/23 22:40 Schistocytes Cancelled 07/22/23 22:40 Sezary Cell Cancelled 07/22/23 22:40 PT 11.2 Seconds (9.0-12.0) 07/23/23 00:02 INR 1.0 (0.9-1.1) 07/23/23 00:02 APTT 31 Seconds (21-31) 07/23/23 00:02 PTT Ratio 1.1 07/23/23 00:02 Sodium 136 mmol/L (136-145) 07/22/23 22:40 Potassium 3.7 mmol/L (3.5-5.1) 07/22/23 22:40 Chloride 105 mmol/L (98-107) 07/22/23 22:40 Carbon Dioxide 22 mmol/L (21-32) 07/22/23 22:40 Anion Gap 9 (3-11) 07/22/23 22:40 BUN 19 mg/dl (6-23) 07/22/23 22:40 Creatinine 1.11 mg/dl (0.6-1.2) 07/22/23 22:40 Est Cr Clr Drug Dosing 53.7 ml/min 07/22/23 22:40 Est GFR ( Amer) 64.7 ml/min 07/22/23 22:40 Est GFR (Non-Af Amer) 55.9 ml/min 07/22/23 22:40 BUN/Creatinine Ratio 17.1 (10-20) 07/22/23 22:40 Glucose 107 mg/dl (70-99(Fasting)) H 07/22/23 22:40 Calcium 8.9 mg/dl (8.6-10.3) 07/22/23 22:40 Total Bilirubin 0.2 mg/dl (0.2-1.0) 07/22/23 22:40 AST 10 U/L (13-39) L 07/22/23 22:40 ALT 8 U/L (7-52) 07/22/23 22:40 Alkaline Phosphatase 67 U/L (34-104) 07/22/23 22:40 Troponin I High Sens 17.3 pg/ml (0-14) H D 07/23/23 00:59 Total Protein 6.9 gm/dl (6.0-8.3) 07/22/23 22:40 Albumin 4.2 gm/dl (3.4-5.0) 07/22/23 22:40 Globulin 2.7 gm/dl (2.5-4.0) 07/22/23 22:40 Albumin/Globulin Ratio 1.6 (0.9-2) 07/22/23 22:40 Lipase 11 U/L (11-82) 07/22/23 22:40 Blood Parasites ID Cancelled 07/22/23 22:40 ECG Additional Comments: No acute ischemic changes by my interpretation PG Care Time/CCT Total # of Minutes Spent Total Time Spent with Patient: Total time spent is greater than 50% in coordination of care (as documented) at patient's floor/unit and/or counseling patient: Coding Level of Care Code 67547 INT INP/OBS CARE 3/75MIN Diagnoses Shaking R25.1 Elevated troponin R77.8 GERD (gastroesophageal reflux disease) K21.9 PAF (paroxysmal atrial fibrillation) I48.0 Benign essential hypertension I10
[2023-07-23 01:31] LABS: Troponin I High Sensitivity 17.3 pg/ml (0-14)
[2023-07-23] MEDS: oxyCODONE HCL IR 5 MG TAB (IMMEDIATE RELEASE) PO STA (02:05)
[2023-07-23] MEDS ORDERED: ACETAMINOPHEN 325 MG TAB PO PRN (03:22)
[2023-07-23] MEDS ORDERED: ALBUTEROL HFA 8 GM INHALER INH PRN (03:22)
[2023-07-23 03:59] LABS: Magnesium 1.3 mg/dl (1.7-2.4); Phosphorus 2.7 mg/dl (2.5-4.9)
--- NOTE | 2023-07-23 07:09 | XRay Report ---
XR chest 1V portable CLINICAL HISTORY: Chest pain, nonspecific COMPARISON STUDY: Chest CT May 31, 2021. Chest radiograph May 27, 2023. FINDINGS: No pneumothorax or pleural effusion. A loop recorder is incidentally noted. Borderline card iomegaly. There is pulmonary vascular congestion without overt pulmonary edema. There is no consolida tion to suggest pneumonia. IMPRESSION: Pulmonary vascular congestion without overt pulmonary edema. ACT 112: Negative or not required by law. Electronically signed by: Reg Murrell M.D. 07/23/2023 7:08 AM
[2023-07-23] MEDS: amLODIPine BESYLATE 5 MG TAB PO SCH (08:12)
[2023-07-23] MEDS: ATORVASTATIN 40 MG TAB PO SCH (08:12)
[2023-07-23] MEDS: APIXABAN 5 MG TABLET PO SCH (08:12)
[2023-07-23] MEDS: FLUTICASONE/VILANTEROL 200/25MCG 14 PUFFS/INHALER INH SCH (08:12)
[2023-07-23] MEDS: DOCUSATE SODIUM 100 MG CAP PO SCH (08:12)
[2023-07-23] MEDS: METOPROLOL SUCC 50MG EXT REL TAB PO SCH (08:13)
[2023-07-23] MEDS: LOSARTAN POTASSIUM 50 MG TAB PO SCH (08:13)
[2023-07-23] MEDS: PANTOprazole 40 MG TAB PO SCH (08:13)
[2023-07-23] MEDS: hydroCHLOROthiazide 25 MG TAB PO SCH (08:15)
[2023-07-23] MEDS: oxyCODONE HCL IR 5 MG TAB (IMMEDIATE RELEASE) PO PRN (08:18)
--- NOTE | 2023-07-23 09:49 | Electroencephalogram ---
EEG Procedure Note Date of Service July 23, 2023 Start / End Times Start Time: 615 End Time: 06 Referring Physician main dave History shaking Home Medication List Medication Instructions Recorded Confirmed Type melatonin 10 mg tablet 30 mg PO HS PRN Sleep 05/15/22 07/22/23 History docusate sodium 100 mg capsule 100 mg PO BID #30 caps 05/24/22 07/22/23 Rx oxycodone 10 mg tablet 10 mg PO Q8H PRN Pain 05/28/22 07/22/23 History apixaban 5 mg tablet (Eliquis) 5 mg PO BID #180 tabs 07/02/22 07/22/23 Rx losartan 100 mg tablet 100 mg PO QAM #90 tabs 10/28/22 07/22/23 Rx amlodipine 5 mg tablet 5 mg PO DAILY #90 tabs 11/14/22 07/22/23 Rx albuterol sulfate 90 mcg/actuation 1 inh inhalation QID PRN shortness 11/15/22 07/22/23 Rx aerosol inhaler of breath or wheezing #8.5 grams budesonide-formoterol HFA 160 1 inh inhalation BID #10.2 grams 11/15/22 07/22/23 Rx mcg-4.5 mcg/actuation aerosol inhaler (Symbicort) atorvastatin 40 mg tablet 40 mg PO QAM #90 tabs 02/07/23 07/22/23 Rx pantoprazole 40 mg tablet,delayed 40 mg PO QAM #90 tabs 02/07/23 07/22/23 Rx release (Protonix) hydrochlorothiazide 25 mg tablet 25 mg PO QAM #90 tabs 04/29/23 07/22/23 Rx famotidine 40 mg tablet (Pepcid) 40 mg PO BID #60 tabs 07/22/23 07/22/23 Rx metoprolol succinate 50 mg 50 mg PO DAILY 07/22/23 07/22/23 History tablet,extended release 24 hr prednisone 10 mg tablet See Rx Instructions PO DAILY #20 07/22/23 07/22/23 Rx tabs Inpatient Medication List Amlodipine Besylate (Amlodipine Besylate 5 Mg Tab) 5 mg PO DAILY [facility] Stop: 08/22/23 08:59 Last Admin: 07/23/23 08:12 Dose: 5 mg Documented By: NII Apixaban (Apixaban 5 Mg Tablet) 5 mg PO BID [facility] Stop: 08/22/23 08:59 Last Admin: 07/23/23 08:12 Dose: 5 mg Documented By: NII Atorvastatin Calcium (Atorvastatin 40 Mg Tab) 40 mg PO QAM [facility] Stop: 08/22/23 08:59 Last Admin: 07/23/23 08:12 Dose: 40 mg Documented By: NII Docusate Sodium (Docusate Sodium 100 Mg Cap) 100 mg PO BID [facility] Stop: 08/22/23 08:59 Last Admin: 07/23/23 08:12 Dose: 100 mg Documented By: NII Fluticasone/Vilanterol (Fluticasone/Vilanterol 200/25mcg 14 Puffs/Inhaler) 1 puffs INH DAILY [facility] Stop: 08/22/23 08:59 Last Admin: 07/23/23 08:12 Dose: 1 puffs Documented By: NII Hydrochlorothiazide (Hydrochlorothiazide 25 Mg Tab) 25 mg PO QAM [facility] Stop: 08/22/23 08:59 Last Admin: 07/23/23 08:15 Dose: Not Given Documented By: NII Losartan Potassium (Losartan Potassium 50 Mg Tab) 100 mg PO QAM [facility] Stop: 08/22/23 08:59 Last Admin: 07/23/23 08:13 Dose: 100 mg Documented By: NII Metoprolol Succinate (Metoprolol Succ 50mg Ext Rel Tab) 50 mg PO DAILY [facility] Stop: 08/22/23 08:59 Last Admin: 07/23/23 08:13 Dose: 50 mg Documented By: NII Oxycodone HCl (Oxycodone Hcl Ir 5 Mg Tab (Immediate Release)) 10 mg PO Q8H PRN PRN Reason: Pain Stop: 08/06/23 03:21 Last Admin: 07/23/23 08:18 Dose: 10 mg Documented By: NII Pantoprazole Sodium (Pantoprazole 40 Mg Tab) 40 mg PO QAM [facility] Stop: 08/22/23 08:59 Last Admin: 07/23/23 08:13 Dose: 40 mg Documented By: NII Discontinued Medications Aspirin (Aspirin Chew 324 Mg) 324 mg PO NOW STA Stop: 07/22/23 22:48 Last Admin: 07/22/23 22:52 Dose: Not Given Documented By: MAURY Oxycodone HCl (Oxycodone Hcl Ir 5 Mg Tab (Immediate Release)) 10 mg PO NOW STA Stop: 07/23/23 01:20 Last Admin: 07/23/23 02:05 Dose: 10 mg Documented By: OSCAR Description This is a 21 electrode EEG with a single channel dedicated to limited EKG. The electrodes were placed in accordance with the International 10-20 system. Interpretation This is a 21 electrode EEG with a single channel dedicated to limited EKG. The electrodes were placed in accordance with the International 10-20 system. There is a posterior dominant rhythm of 9 Hz which is symmetrically distributed and attenuates with eye opening. There is a normal anterior to posterior organization. Photic stimulation: unremarkable Hyperventilation performed: ___ unremarkable; _x_ not performed. There is no focal slowing. No epileptiform abnormalities. Sleep stage: _x_ not achieved, ___drowsy state, ___ Stage II, ___ REM stage achieved. Interpretation Normal-appearing awake EEG. As of note, shaking spell was captured on the Video EEG and it was NOT associated with epileptic activity. [facility] EEG Procedure Codes Indication for Procedure (1) Shaking: Neurology Neurology: 44531 EEG include record awake & drowsy
[2023-07-23] MEDS: MAGNESIUM SULFATE / D5W 1 GM/100 ML BAG IV SCH (10:42)
[2023-07-23] MEDS: BACLOFEN 10 MG TAB PO ONE ×2 (14:33→17:27)
[2023-07-23 18:03] LABS: C Reactive Protein < 0.50 mg/dl (0-0.5); Creatine Kinase 43 U/L (26-192); Iron 71 mcg/dl (35-150); Magnesium 2.7 mg/dl (1.7-2.4); Total Iron Binding Cap Calc 294 mcg/dl (250-450); Transferrin (FE) Percent Satur 24 % (15-50); Unsaturated Iron Binding Cap 223 mcg/dl (155-355)
[2023-07-23 18:18] LABS: Thyroid Stimulating Hormone 2.397 uIu/ml (0.300-4.500)
[2023-07-23 18:20] LABS: T4 Free Thyroxine 0.77 ng/dl (0.61-1.60)
[2023-07-23 18:24] LABS: Ferritin 74.8 ng/ml (8-388)
[2023-07-23 18:28] LABS: Folate (Folic Acid),Ser orPlas 10.46 ng/ml (>5.38)
--- NOTE | 2023-07-23 18:50 | Hospitalist Progress Note ---
Date of Service July 23, 2023 Assessment & Plan (1) Shaking: Plan: Etiology uncertain Extensive w/u thus far -- EEG, numerous labs, etc -- has only revealed low mag level, low vit D level, and borderline low vit B12 level. the low mag may explain some of her muscle symptoms but not chest tightness, flushing of the face, or dyspnea. EEG captured one of her shaking spells on video and no seizure activity was seen during the shaking episode. Replaced the low mag. Will replace low vit D and low vit B12. Check metanephrines to r/o pheochromocytoma. Consider checking serotonin metabolites for carcinoid. Check cortisol level. (2) Elevated troponin: Plan: Cardiac cath 2022 wnl; no CAD on that study. Thus, scant elevation likely demand ischemia in setting of #1. Continue Metoprolol, Atorvastatin. (3) GERD (gastroesophageal reflux disease): Plan: PPI (4) PAF (paroxysmal atrial fibrillation): Plan: none seen on tele thus far -Continue Apixaban -Continue Metoprolol (5) Benign essential hypertension: Plan: BPs have actually been LOW since arrival to the floor. Thus, hydrate with NS and HOLD all BP meds except metoprolol. (6) Hypomagnesemia: Plan: mag level 1.3 s/p 3 grams mag sulfate 2nd to HCTZ use (7) Vitamin D deficiency: Plan: 25-OH level = 10 ergocalciferol 50,000 units weekly x 8 weeks (8) B12 deficiency: Plan: level - 185 start b12 supplementation 1000mcg daily Admission and Anticipated Discharge Date Admission Date: July 23, 2023 Subjective continues to have episodes of "shaking" of both arms and both legs episodes last a few minutes then self-resolve since admission has had at least 2 episodes of the above when she has the spells her face feels flushed, she feels short of breath, and she has a very mild chest tightness the muscles in her arms "spasm" and get very tight at home she states her BP was very high when this occurred denies significant anxiety has never had symptoms like this in the past of note - 2022 had normal cardiac catheterization by Dr Lopez, [facility] she sees Dr Mai from [facility] in the clinic Review of Systems Review of Systems: gen - no weight loss, no fevers, appetite is ok pulm - no dyspnea unless she is having a spell GI - L flank pain - fairly constant - for 3-4 weeks or longer Physical Exam Physical Exam: gen - NAD, WD, WN, lying comfortably in bed neck - no JVD mouth - MMM heart - stefanie, s1 s2, no murmur lungs - CTA B/l abd - soft ND BS+; positive flank tenderness on left; no mass ext - no edema, pulses 2+ b/l neuro - normal bulk & tone of all 4 limbs; no fasciculations; no resting tremor eyes - no nystagmus Results & Data Results & Data Vital Signs (Past 12 Hours) Vital Signs Temp Pulse Pulse Pulse Resp BP Pulse Ox 07/23/23 16:14 94/54 L 07/23/23 15:49 36.5 C 47 L 16 84/47 L 96 07/23/23 14:01 49 L 07/23/23 12:48 07/23/23 12:29 36.9 C 57 L 16 100/48 L 97 07/23/23 10:48 36.5 C 54 L 16 95/46 L 96 07/23/23 07:39 54 L O2 Del Method 07/23/23 16:14 07/23/23 15:49 Room Air 07/23/23 14:01 07/23/23 12:48 Room Air 07/23/23 12:29 Room Air 07/23/23 10:48 Room Air 07/23/23 07:39 Laboratory Results Laboratory Results - last 24 hr 07/23/23 07/23/23 05:42 16:49 ESR 22 Magnesium 2.7 H Iron 71 TIBC 294 Unsaturated IBC 223 Transferrin % Sat 24 Ferritin 74.8 Total Creatine Kinase 43 Troponin I High Sens 14.6 H C-Reactive Protein < 0.50 Vitamin B12 185 25-OH Vitamin D Total 10.8 L Folate 10.46 TSH 2.397 Free T4 0.77 Lyme Disease Screen Negative PG Care Time/CCT Total # of Minutes Spent Total Time Spent with Patient: Total time spent is greater than 50% in coordination of care (as documented) at patient's floor/unit and/or counseling patient: Coding Level of Care Code None Diagnoses Shaking R25.1 Elevated troponin R77.8 GERD (gastroesophageal reflux disease) K21.9 PAF (paroxysmal atrial fibrillation) I48.0 Benign essential hypertension I10 Hypomagnesemia E83.42 Vitamin D deficiency E55.9 B12 deficiency E53.8
[2023-07-23] MEDS: CYANOCOBALAMIN (B-12) 500 MCG TABLET PO SCH (19:54)
[2023-07-23] MEDS: ERGOCALCIFEROL 1250 MCG (50,000 UNITS) CAP PO ONE (19:54)
[2023-07-23] MEDS: MELATONIN 3 MG TAB PO PRN (21:35)
[2023-07-23] MEDS: SODIUM CHLORIDE 0.9% 1,000 ML IV SCH (21:36)
[2023-07-23] MEDS: OPTIRAY 320 100ml IV ONE (22:10)
--- NOTE | 2023-07-24 06:12 | Electrocardiogram Report ---
Test Reason : Blood Pressure : / mmHG Vent. Rate : 067 BPM Atrial Rate : 067 BPM P-R Int : 120 ms QRS Dur : 082 ms QT Int : 410 ms P-R-T Axes : 054 050 068 degrees QTc Int : 433 ms Sinus rhythm with Premature atrial complexes Otherwise normal ECG When compared with ECG of 27-MAY-2023 18:32, Premature ventricular complexes are no longer Present T wave inversion no longer evident in Anterior leads Confirmed by Handy Zavala ([id number]) on 07/24/2023 6:11:23 AM Referred By: REFERRED SELF Confirmed By:Handy Zavala
[2023-07-24] MEDS: INFLUENZA VIRUS QUADRIVALENT VACCINE (IIV4) 0.5 ML SYR IM ONE (07:38)
[2023-07-24 08:41] LABS: Hematocrit (blood only) 32.4 % (37.0-47.0); Hemoglobin 10.9 g/dl (12.0-16.0); Mean Corpuscular Hemoglobin 29.9 pg (25.0-34.0); Mean Corpuscular Hgb Conc 33.6 g/dL (32.0-36.0); Mean Platelet Volume 10.7 fL (9.4-12.4); Platelet Count 258 K/uL (130-400); RDW Coefficient of Variation 13.1 % (11.5-14.5); RDW Standard Deviation 42.6 fL (36.4-46.3); Red Blood Count 3.64 M/uL (4.20-5.40); White Blood Count 7.73 K/ul (4.8-10.8)
[2023-07-24 08:52] LABS: BUN Creatinine Ratio 22.8 (10-20); Calcium 9.2 mg/dl (8.6-10.3); Creatinine Clr Calc Pharmacy 52.1 ml/min; Est GFR (African American) 62.7 ml/min; Est GFR (Non-African American) 54.1 ml/min; Potassium 4.7 mmol/L (3.5-5.1)
--- NOTE | 2023-07-24 20:55 | Hospitalist Progress Note ---
Date of Service July 24, 2023 Assessment & Plan (1) Shaking: Plan: Etiology uncertain but fully resolved Extensive w/u thus far -- EEG, numerous labs, etc -- has only revealed low mag level, low vit D level, and borderline low vit B12 level. the low mag may explain some of her muscle symptoms but not chest tightness, flushing of the face, or dyspnea. EEG captured one of her shaking spells on video and no seizure activity was seen during the shaking episode. Replaced the low mag and now normal at 1.9. Will replace low vit D and low vit B12. Check metanephrines to r/o pheochromocytoma. Consider checking serotonin metabolites for carcinoid. Cortisol level 9. Of note - patient with NORMAL BPs and even LOW BPs OFF ALL OF HER 4 usual BP meds. VERY POSSIBLE that her shaking was driven by low BPs?? watch BPs overnight. this will determine recs for her BP meds (whether to resume some). (2) Elevated troponin: Plan: Cardiac cath 2022 wnl; no CAD on that study. Thus, scant elevation likely demand ischemia in setting of #1. Continue Metoprolol, Atorvastatin. (3) GERD (gastroesophageal reflux disease): Plan: PPI (4) PAF (paroxysmal atrial fibrillation): Plan: none seen on tele thus far -Continue Apixaban -Continue Metoprolol - dose held this am due to bradycardia reduce dose from 50mg to 25mg/day (5) Benign essential hypertension: Plan: BPs have actually been LOW since admission. Hydrated overnight. HOLD all BP meds except metoprolol (try to give at least 25mg/day at minimum given a.fib history and palpitations). (6) Hypomagnesemia: Plan: mag level 1.3 s/p 3 grams mag sulfate 2nd to HCTZ use level now 1.9 (7) Vitamin D deficiency: Plan: 25-OH level = 10 ergocalciferol 50,000 units weekly x 8 weeks (8) B12 deficiency: Plan: level - 185 start b12 supplementation 1000mcg daily (9) Hypotension: Plan: HOLD losartan, HOLD amlodipine, HOLD HCTZ reduce dose of meto succ to 25mg/day BPs improved following the above + IV fluids overnight follow BPs carefully cortisol level 9 Plan change observation to full admission status watch overnight due to low BPs Admission and Anticipated Discharge Date Admission Date: July 23, 2023 Subjective telemetry - NSR or sinus stefanie no a.fib or other dysrhythmia NO FURTHER SHAKING SPELLS NO EPISODES of any muscle spasm no chest pain no dyspnea feels good eating well unfortunately unable to get CT a/p due to multiple IVs infiltrating L flank pain is better however Review of Systems Review of Systems: gen - feels good today; no chills or fever cv - no orthopnea neuro - no dizziness or lightheadedness pulm - no dyspnea Physical Exam Physical Exam: gen - NAD, WD, WN, looks well neck - no JVD mouth - MMM heart - stefanie, s1 s2, no murmur lungs - CTA B/l abd - soft ND BS+; no flank tenderness on left today ext - no edema, pulses 2+ b/l neuro - normal bulk & tone of all 4 limbs; no fasciculations; no resting tremor Results & Data Results & Data Vital Signs (Past 12 Hours) Vital Signs Temp Pulse Resp BP BP Pulse Ox O2 Del Method 07/24/23 19:33 36.5 C 52 L 18 120/70 93 Room Air 07/24/23 15:23 36.8 C 77 16 118/74 99 Room Air 07/24/23 11:16 36.7 C 61 18 117/53 L 96 Room Air Laboratory Results Laboratory Results - last 24 hr 07/24/23 08:08 WBC 7.73 RBC 3.64 L Hgb 10.9 L Hct 32.4 L MCV 89.0 MCH 29.9 MCHC 33.6 RDW Std Deviation 42.6 RDW Coeff of Marco 13.1 Plt Count 258 MPV 10.7 Sodium 139 Potassium 4.7 D Chloride 108 H Carbon Dioxide 25 Anion Gap 6 BUN 26 H Creatinine 1.14 Est Cr Clr Drug Dosing 52.1 Est GFR ( Amer) 62.7 Est GFR (Non-Af Amer) 54.1 BUN/Creatinine Ratio 22.8 H Glucose 90 Calcium 9.2 Magnesium 1.9 Cortisol AM Sample 9.64 Plasma Metanephrine Pending Plasma Normetanephrine Pending Plas Total Metaneph Pending PG Care Time/CCT Total # of Minutes Spent Total Time Spent with Patient: Total time spent is greater than 50% in coordination of care (as documented) at patient's floor/unit and/or counseling patient: Coding Level of Care Code 13065 SUB INP/OBS CARE 235MIN Diagnoses Shaking R25.1 Elevated troponin R77.8 GERD (gastroesophageal reflux disease) K21.9 PAF (paroxysmal atrial fibrillation) I48.0 Benign essential hypertension I10 Hypomagnesemia E83.42 Vitamin D deficiency E55.9 B12 deficiency E53.8 Hypotension I95.9
[2023-07-24] MEDS: TEMAZEPAM 7.5 MG CAPSULE PO PRN (22:36)
[2023-07-25 07:54] LABS: Calcium 9.4 mg/dl (8.6-10.3); Creatinine Clr Calc Pharmacy 59.1 ml/min; Est GFR (African American) 73.5 ml/min; Est GFR (Non-African American) 63.4 ml/min; Potassium 4.2 mmol/L (3.5-5.1)
--- NOTE | 2023-07-25 14:04 | Discharge Summary ---
Date of Service date of admission - July 23, 2023 date of discharge - July 25, 2023 Admission HPI Per Admitting Provider Venessa De is a 53yo female with history of CAD, HLP, GERD, RA and PAF presenting from home with episodes of shaking. Patient reports that yesterday she had an abrupt episode of full body shaking. She reports first feeling warm and flushed in her face and neck followed by shaking of her arms and legs and tight clenching of her mouth and diaphoresis. She had some chest palpitations as well as chest tightness and elevated blood pressure during this episode. Symptoms lasted several moments then resolved spontaneously. This evening around 21:00 she had another episode as before. She had some warm, flushing sensation of her face and neck followed by full body shaking, palpitations and chest heaviness as well as diaphoresis. EMS was called. She was given "a shot of something" in the ambulance and her shaking resolved. Patient additionally reports having bifrontal headaches this week which is unusual for her. She has also had some dizziness and some pain under her left breast and into her back. She has stable SOB at baseline which is unchanged. Otherwise she denies fever, chills, cough, abdominal pain, nausea, vomiting, diarrhea, constipation, dysuria, hematuria, rash, joint pain. She denies syncope or LOC, confusion No recent illness or travel. No medication changes - she was prescribed Prednisone and Famotidine for this current complaint but did not yet fill the prescriptions. In the ER she is afebrile, HD stable ER Course: ASA 324mg Principal Diagnosis 1. hypomagnesemia - resolved 2. hypotension - resolved 3. severe shaking episodes - resolved, etiology uncertain 4. vitamin B12 deficiency 5. vitamin D deficiency 6. history of paroxysmal atrial fibrillation Discharge Exam gen - NAD, WD, WN, looks well neck - no JVD mouth - MMM heart - bradycardic, s1 s2, no murmur lungs - CTA B/l abd - soft ND NT BS+; no flank tenderness b/l ext - no edema, pulses 2+ b/l neuro - normal bulk & tone of all 4 limbs; no fasciculations; no resting tremor; normal speech; no facial droop; no myoclonic jerks Discharge Data Allergies Allergy/AdvReac Type Severity Reaction Status Date / Time No Known Allergies Allergy Verified 07/29/23 13:21 Ordered Studies Chest X-Ray 07/22/23 22:47 XR chest 1V portable CLINICAL HISTORY: Chest pain, nonspecific COMPARISON STUDY: Chest CT May 31, 2021. Chest radiograph May 27, 2023. FINDINGS: No pneumothorax or pleural effusion. A loop recorder is incidentally noted. Borderline cardiomegaly. There is pulmonary vascular congestion without overt pulmonary edema. There is no consolidation to suggest pneumonia. IMPRESSION: Pulmonary vascular congestion without overt pulmonary edema. ACT 112: Negative or not required by law. Electronically signed by: Reg Murrell M.D. 07/23/2023 7:08 AM Hospital Course (1) Shaking: Etiology uncertain but fully resolved following admission. Extensive work-up -- EEG, numerous labs, etc -- only revealed a low magnesium level of 1.3, low vitamin D level, and borderline low vitamin B12 level. The low magnesium may explain some of her muscle symptoms but not chest tightness, flushing of the face, elevated blood pressure (self-reported based on home BPs), or dyspnea. EEG captured one of her shaking spells on video and no seizure activity was seen during the shaking episode. Low magnesium was replaced and normalized to 1.9. low vit D and low vit B12 will be supplemented. Plasma and urine metanephrines were dispatched & were pending at discharge to r/o pheochromocytoma. If these are normal could consider checking serotonin metabolites for carcinoid if her symptoms recur in the future. Cortisol level was 9. TSH was 2.3. Ferritin was 74. Blood cultures were negative. She had no evidence of any infectious process during the stay. Peak troponin was 17. Other than the low magnesium, low B12, and low vitamin D the only other abnormality was that of her blood pressure. After admission to the telemetry unit her BPs were ALL normal or even low (90s systolic). These readings were OFF ALL OF HER USUAL FOUR BP medications. At time of discharge it was inconclusive as to the exact etiology of her presenting symptoms. (2) Hypomagnesemia: mag level 1.3 at admission s/p 3 grams mag sulfate - repeat level 1.9 suspect 2nd to chronic HCTZ use certainly could have contributed to her muscle irritability/shakes she has been taking a magnesium supplement at home - encouraged to continue such (3) Benign essential hypertension: Following admission BPs were either normal or LOW Her BP medications were held and she was given IV hydration Cortisol level was 9 Lowest systolic BPs were in the 90s These improved following IV fluids. Discharge BP was 106/67 - OFF of all of her usual medicines At discharge recommended - * cont metoprolol succinate 50mg daily * HOLD amlodipine * STOP HCTZ * STOP losartan * check BPs twice daily at home * if systolic BPs consistently are >140 then resume amlodipine (4) Elevated troponin: Cardiac cath 2022 wnl; no CAD on that study. Thus, scant elevation (17) likely demand ischemia in setting of #1. Continue Metoprolol, Atorvastatin. (5) GERD (gastroesophageal reflux disease): cont PPI (6) PAF (paroxysmal atrial fibrillation): no a.fib seen on tele while here Continue Apixaban Continue Metoprolol succinate (7) Vitamin D deficiency: 25-OH vitamin D level = 10 ergocalciferol 50,000 units weekly x 8 weeks (8) B12 deficiency: level - 185 (<180 is deficiency) start b12 supplementation 1000mcg daily (9) Hypotension: see discussion above (10) Left flank pain: patient reported a month or longer of left flank pain CT abd/pelvis was ordered, but patient could not maintain a working IV to allow contrast administration thus, the CT was not completed if pain recurs/persists then try to secure the CT as outpatient Total Time Total Time Spent Total Time Spent (In Minutes): 45 Discharge Plan Discharge Items Patient Disposition: Home - Self-Care Reason For Visit: HYPOMAGNESEMIA, HYPOTENSION Discharge Diagnosis: 1. hypomagnesemia (low magnesium levels) - resolved 2. hypotension (low blood pressure) - resolved 3. severe shaking episodes - resolved, etiology uncertain - possibly multiple factors including low magnesium, blood pressure, etc. 4. vitamin B12 deficiency 5. vitamin D deficiency 6. history of atrial fibrillation Activity: As commented below Activity Comment: gradually increase your activities over the next week Non-emergency contact: Primary Care Provider Call non-emergency contact if: you have any medication questions and your symptoms worsen Follow-up/Referrals: Priscilla Obregon DO [Primary Care Provider] - 08/05/23 9:20 am Diet: Heart Healthy Addtl Attending Provider Instructions: Mrs De, Vikram were hospitalized due to having episodes of severe shaking/tremors of all 4 limbs along with having severe flushing/sweating of the face. These episodes gradually resolved while you were here. Extensive testing was done including blood work and EEG (brain-wave test). The EEG was negative - this means that these episodes were unlikely to be seizures. Blood work abnormalities found - * moderate-severe vitamin D deficiency * vitamin B12 deficiency * low magnesium It is very possible the low magnesium was contributing to your symptoms but low magnesium would not explain the facial flushing, chest tightness, etc. The low B12 and vitamin D were unlikely to have caused your symptoms. In addition, we noted that your blood pressures for the majority of your stay were either low or well within normal range. Most of your blood pressures were controlled off of your typical blood pressure medicines. Your telemetry heart monitoring did not show any abnormalities - we did not see a.fib or other abnormal heart rhythms. We have sent off blood & urine testing for a rare condition called pheochromocytoma that can cause episodes of high blood pressure, severe sweats, heart palpitations, etc. These will take about a week to return. Recommendations - 1. Resume your metoprolol succinate on 07/26/23. 2. HOLD your amlodipine. 3. STOP your losartan. STOP your hydrochlorothiazide. 4. Please have your family doctor recheck your electrolytes including magnesium level next week to ensure they are still normal. 5. Please check your blood pressure twice daily - upon awakening in the morning, and at bedtime. Use a cuff that goes around the upper portion of the arm. Please write these numbers down for your family doctor to see. If your blood pressures are consistently greater than 140 systolic (Top number) please RESUME your amlodipine and take once daily. If your systolic blood pressures are consistently less than 140 continue to hold the amlodipine. It will be very important for you to follow-up with your family doctor for your blood pressure. 6. You mentioned you have been taking a magnesium supplement. You can continue to take this even though your hydrochlorothiazide has been stopped. 7. Talk to your doctor about your sleep problems. Possible meds for your sleep could include hydroxyzine, trazodone, doxepin, etc. It will be up to your family doctor to decide which would be best for you. 8. Take [id number] vitamin B12 1000mcg (1mg) once daily for about 6 months. 9. Take prescription vitamin D supplement -- 1 pill ONCE A WEEK x 7 weeks. You can start this on any day of next week. Follow-up - see Dr Obregon next week Return to [facility] if - * you develop severe shaking episodes again * you have chest pains and/or you are short of breath * any other concerns It was our pleasure to care for you! Pending Studies at Discharge: Yes Studies:: blood & urine tests to rule out a condition called pheochromocytoma (rare condition) Stand-Alone Forms: [facility], Smoking Cessation Medications and DC Order Prescriptions: New ergocalciferol (vitamin D2) 1,250 mcg (50,000 unit) capsule 50,000 unit PO .once a week 49 Days Qty: 7 0RF cyanocobalamin (vitamin B-12) 1,000 mcg tablet 1,000 mcg PO DAILY Qty: 90 1RF Rx Instructions: purchase [id number]; take for about 6 months. Continued Eliquis 5 mg tablet 5 mg PO BID Qty: 180 3RF pantoprazole [Protonix] 40 mg tablet,delayed release (DR/EC) 40 mg PO QAM Qty: 90 1RF atorvastatin 40 mg tablet 40 mg PO QAM Qty: 90 1RF melatonin 10 mg tablet 30 mg PO HS PRN (Reason: Sleep) albuterol sulfate 90 mcg/actuation HFA aerosol inhaler 1 inh inhalation QID PRN (Reason: shortness of breath or wheezing) Qty: 8.5 3RF budesonide-formoterol [Symbicort] 160-4.5 mcg/actuation HFA aerosol inhaler 1 inh inhalation BID Qty: 10.2 2RF famotidine [Pepcid] 40 mg tablet 40 mg PO BID Qty: 60 2RF Rx Instructions: PER PT "DID NOT RADIATOR SPECIALIST FROM PHARMACY YET". docusate sodium 100 mg Capsule 100 mg PO BID Qty: 30 0RF oxycodone 10 mg tablet 10 mg PO Q8H PRN (Reason: Pain) metoprolol succinate 50 mg tablet extended release 24 hr 50 mg PO DAILY Rx Instructions: Take 1 tablet by mouth every day and may take an extra dose as needed for breakthrough A-Fib (verified pat call 07/30/22) Discontinued losartan 100 mg tablet 100 mg PO QAM Qty: 90 3RF hydrochlorothiazide 25 mg tablet 25 mg PO QAM Qty: 90 3RF prednisone 10 mg tablet See Rx Instructions PO DAILY Qty: 20 0RF Rx Instructions: PER PT "DID NOT RADIATOR SPECIALIST FROM PHARMACY YET", ORDERED 07/22/23. orally daily; 40 mg x3 days, 20 mg x3 days, 10 mg x2 days No Action losartan 100 mg tablet 100 mg PO DAILY amlodipine 5 mg tablet 5 mg PO DAILY hydrochlorothiazide 25 mg tablet 25 mg PO DAILY Discharge Orders: Discharge Order (Routine); Ordered 07/25/23 Ordered By: Abdulkadir Gu Admission Data Admit Date/Time: 07/24/23 17:42 Attending Provider: Abdulkadir Gu Admit Provider: Melisa Cali Primary Care Provider: Priscilla Obregon. Other Providers: Melisa Cali Other Interventions: Discharge Summary Assessment (RN) Last Done: 07/25/23 15:05 Coding Level of Care Code 59853 INP/OBS DISCH >30 MIN Diagnoses Shaking R25.1 Hypomagnesemia E83.42 Benign essential hypertension I10 Elevated troponin R77.8 GERD (gastroesophageal reflux disease) K21.9 PAF (paroxysmal atrial fibrillation) I48.0 Vitamin D deficiency E55.9 B12 deficiency E53.8 Hypotension I95.9 Left flank pain R10.9
[2023-07-25] MEDS: METOPROLOL SUCC 25MG EXT REL TAB PO SCH (14:26)
[2023-07-28 11:27] LABS: Metanephrine, Plasma 35 pg/mL (<=57); Normetanephrine Plasma 80 pg/mL (<=148); Total Metanephrine Plasma 115 pg/mL (<=205)
== END 2023-07-25 15:41 | disposition home or self-care (01) | DRG 92 ==
LOC: EDINP 22:10 → ED 22:10 → SUATTDRO 07-23 01:29 → 2N 07-23 12:07
DX: E53.8 Deficiency of other specified B group vitamins; I25.10 Atherosclerotic heart disease of native coronary artery without angina pectoris; I10 Essential (primary) hypertension; Z79.52 Long term (current) use of systemic steroids; E83.42 Hypomagnesemia; I95.9 Hypotension, unspecified; K21.9 Gastro-esophageal reflux disease without esophagitis; Z79.899 Other long term (current) drug therapy; I24.89 Other forms of acute ischemic heart disease; I48.0 Paroxysmal atrial fibrillation; F17.210 Nicotine dependence, cigarettes, uncomplicated; R25.1 Tremor, unspecified; M06.9 Rheumatoid arthritis, unspecified; Z79.01 Long term (current) use of anticoagulants; T50.2X5A Adverse effect of carbonic-anhydrase inhibitors, benzothiadiazides and other diuretics, initial encounter; E55.9 Vitamin D deficiency, unspecified